=== PATIENT | female | born 1940 | race Caucasian/White ===

== ENCOUNTER → 2017-08-27 10:50 | Outpatient (CLI) | payer MEDICARE, MEDICAID, SELFPAY ==
--- NOTE | 2017-08-27 10:53 | MR_ITS ---
MR thoracic spine wo con HISTORY: Mid back pain. RT sided back pain between scapula and knot. Knot on back. ITS.REASON: THORACIC SPINE PAIN ORDERING PHYSICIAN: Megan Munguia PATIENT AGE: 76 years Comparison: MRI 08-02-15 TECHNIQUE: Standard multiplanar multiecho sequences are performed without contrast. 3-D MIP and myelographic images are also rendered and reviewed FINDINGS: There is normal alignment. No acute fracture or dislocation is evident. T6-T7: Small central disc herniation abutting the anterior aspect of the cord. This may be very slightly larger compared to the previous exam. No significant cord displacement. T7-T8 small central disc herniation slightly eccentric toward the right causing impingement and effacement upon the anterior right aspect of the cord not significantly changed. T8-T9: Small central disc herniation slightly eccentric to the right causing mild compression and effacement upon the anterior right aspect of the cord not significantly change. T 11 T12: Degenerative disc disease with small broad-based bulging disc slightly eccentric to the left without cord compression. T12-L1: Mild degenerative disc disease. Small broad based right paracentral and foraminal disc protrusion without impingement causing mild right foraminal narrowing L1-L2: Degenerative disc disease with mild concentric bulging disc and facet and ligamentum flavum hypertrophy. There is mild chronic wedging of L1 unchanged. There are multiple renal cyst. Subcutaneous lipoma noted in the lower thoracic/upper lumbar region as before. 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 IMPRESSION: Abnormal MRI of the thoracic spine. There are multiple disc protrusion/small herniation along with degenerative disc disease and bulging disc. Please see above for detailed description at each level. Overall there is been no significant change compared to the previous exam. The small disc herniation at T6-T7 may be very slightly larger however, this is minimal.
== END ==
PROVIDERS: Family Provider Internal Medicine Adolescent Medicine; PCP Internal Medicine Adolescent Medicine; Visit Provider Nurse Practitioner Family
DX: M54.6 Pain in thoracic spine (principal)
CPT/HCPCS: 72146

== ENCOUNTER → 2019-06-06 14:22 | Outpatient (CLI) | payer MEDICARE, MEDICAID, SELFPAY ==
[2019-06-06 14:51] LABS: Basophils % 0.2 % (0.1-2.0); Eosinophils # 0.1 K/mm3 (0.0-0.4); Eosinophils % 1.2 % (0.1-12.0); Hematocrit 29.1 % (37.0-47.0); Hemoglobin 9.5 g/dL (12.2-16.2); Lymphocytes # 1.4 K/mm3 (0.7-4.5); Lymphocytes % 21.2 % (10-50); Mean Corpuscular HGB Conc 32.6 g/dL (31.8-35.4); Mean Corpuscular Hemoglobin 37.8 pg (27.0-31.2); Mean Corpuscular Volume 115.9 fl (81-99); Mean Platelet Volume 8.3 fl (7.4-10.4); Monocytes # 0.3 K/mm3 (0.1-1.0); Monocytes % 3.9 % (1.7-9.3); Neutrophils # 4.7 K/mm3 (1.8-7.8); Neutrophils % 73.5 % (37.0-80.0); Platelet Count 345 K/mm3 (142-424); Red Blood Count 2.51 M/mm3 (4.20-5.40); Red Cell Distribution Width 14.3 % (11.5-17.5); White Blood Count 6.5 K/mm3 (4.8-10.8)
--- NOTE | 2019-06-06 15:04 | CA_ITS ---
APPROVED REPORT EXAM: Comprehensive 2D, Doppler, and color-flow Echocardiogram Employee Communications Coordinator: Beverly Ceballos RDCS Ht: 5 ft 1 in Wt: 113lbs BSA: 1.48 BP: 116/83 mmHg Indications: SOA,RBBB,ABN EKG,SMOKER,ESTRELLA,HTN,HLP 2D Dimensions LVOT 1.60 cm (M/F) 1.5-2.5 M-Mode Dimensions RVDd 2.69 cm (0.9-2.6) LVDd 4.51 cm (3.5-5.7) LVDs 2.79 cm (3.5-5.7) IVSd 0.61 cm (0.6-1.1) PWd 0.72 cm (0.6-1.1) EF (Teich) 68.50% FS 38.10% EDV (Teich) 92.90 mL ESV (Teich) 29.30 mL Mitral Valve MV PHT 73.00 ms Left Ventricle Left atrium is moderately enlarged, left ventricle is normal size, mild concentric left ventricular hypertrophy, visually estimated ejection fraction 55% with no regional wall motion abnormality, grade 1 diastolic dysfunction seen without tissue Doppler evidence of raise left atrial pressure. Right Ventricle Right atrium and right ventricular mildly enlarged with normal contractility. Aortic Valve Aortic valve is thickened and calcified leaflet continue to display good mobility, morphologically there is mild aortic stenosis, aortic outflow velocity is not accurately recorded. There is no aortic insufficiency. Mitral Valve Mitral valve leaflets are minimally thickened, there is mild mitral regurgitation. Tricuspid Valve Tricuspid valve is grossly normal, there is mild tricuspid regurgitation, calculated right ventricular systolic pressure is 47 mmHg which is moderately elevated. Inferior vena cava is dilated without significant inspiratory collapse. Pulmonic Valve Pulmonic valve is poorly visualized. Great Vessels Aortic root is normal size. Pericardium No significant pericardial effusion noted. Conclusion 1. Moderately enlarged left atrium, normal left ventricular size, mild concentric left ventricular hypertrophy, visually estimated ejection fraction 55% with no regional wall motion abnormality, grade 1 diastolic dysfunction seen without tissue Doppler evidence of raise left atrial pressure. 2. Mildly enlarged right ventricle with normal contractility. 3. Thickened and calcified aortic valve morphologically there is mild aortic stenosis, aortic outflow velocity is not accurately recorded, there is no aortic insufficiency. 4. Mild mitral and tricuspid regurgitation. Calculated right ventricular systolic pressure is 47 mmHg which is moderately elevated, inferior vena cava is dilated without significant inspiratory collapse. 5. No significant pericardial effusion noted. Electronically signed by : Brodie Harrell, 06/07/2019 08:09:47
[2019-06-06 15:10] LABS: Troponin I < 0.01 ng/ml (0.00-0.034)
[2019-06-06 15:40] LABS: Chloride 99 mmol/L (98-107); Potassium 4.3 mmoL/L (3.5-5.1); Sodium 129 mmol/L (136-145)
[2019-06-06 15:42] LABS: Bilirubin,Unconjugated 0.3 mg/dL (0.0-1.1); Blood Urea Nitrogen 14 mg/dl (7-17); Estimated Glomerular Filt Rate 54 ml/min (>60); GFR (African American) 65 ML/MIN (>60)
[2019-06-06 15:43] LABS: Alanine Aminotransferase 10 U/L (12-78); Albumin Level 3.9 g/dl (3.5-5.0); Alkaline Phosphatase 65 U/L (38-126); Anion Gap 10.3 mEq/L (5-15); Aspartate Amino Transferase 19 U/L (14-36); Bilirubin,Indirect 0.2 mg/dL (0.0-0.9); Bilirubin,Total 0.2 mg/dl (0.2-1.3); Calcium 8.6 mg/dl (8.4-10.2); Carbon Dioxide 24 mmol/L (22.0-30.0); Chol/HDL Ratio 2.7 (1-3.5); Cholesterol 167 mg/dl (140-200); Glucose 103 mg/dl (74-100); HDL Cholesterol 63 mg/dl (40-60); Total Protein,Serum 6.4 g/dl (6.3-8.2); Triglycerides 118 mg/dl (30-150); VLDL Cholesterol 24 mg/dL (0-40)
[2019-06-06 15:54] LABS: Direct LDL Cholesterol 91.98 mg/dL (100-129)
== END ==
LOC: LAB 14:23 → RT 15:03
PROVIDERS: PCP Internal Medicine Adolescent Medicine; Visit Provider Physician Assistant
DX: R07.89 Other chest pain (principal); F17.200 Nicotine dependence, unspecified, uncomplicated; I45.10 Unspecified right bundle-branch block; R06.09 Other forms of dyspnea; R94.31 Abnormal electrocardiogram [ECG] [EKG]
CPT/HCPCS: 36415; 80048; 80061; 80076; 84484; 85025; 93306

== ENCOUNTER → 2020-06-26 12:15 | Outpatient (CLI) | payer MEDICARE, MEDICAID, SELFPAY ==
[2020-06-26 12:57] LABS: Basophils % 0.4 % (0.1-2.0); Eosinophils # 0.1 K/mm3 (0.0-0.4); Eosinophils % 1.6 % (0.1-12.0); Hematocrit 30.2 % (37.0-47.0); Hemoglobin 9.8 g/dL (12.2-16.2); Lymphocytes # 1.6 K/mm3 (0.7-4.5); Lymphocytes % 24.6 % (10-50); Mean Corpuscular HGB Conc 32.6 g/dL (31.8-35.4); Mean Corpuscular Hemoglobin 37.3 pg (27.0-31.2); Mean Corpuscular Volume 114.3 fl (81-99); Monocytes # 0.4 K/mm3 (0.1-1.0); Monocytes % 5.8 % (1.7-9.3); Neutrophils # 4.3 K/mm3 (1.8-7.8); Neutrophils % 67.6 % (37.0-80.0); Platelet Count 290 K/mm3 (142-424); Red Blood Count 2.64 M/mm3 (4.20-5.40); Red Cell Distribution Width 14.3 % (11.5-17.5); White Blood Count 6.4 K/mm3 (4.8-10.8)
[2020-06-26 13:12] LABS: Alanine Aminotransferase 10 U/L (12-78); Albumin Level 4.5 g/dl (3.5-5.0); Albumin/Globulin Ratio 1.6 (1.1-1.8); Alkaline Phosphatase 86 U/L (38-126); Anion Gap 10.2 mEq/L (5-15); Aspartate Amino Transferase 23 U/L (14-36); Bilirubin,Total 0.3 mg/dl (0.2-1.3); Blood Urea Nitrogen 18 mg/dl (7-17); Calcium 9.4 mg/dl (8.4-10.2); Carbon Dioxide 22 mmol/L (22.0-30.0); Chloride 103 mmol/L (98-107); Chol/HDL Ratio 3.2 (1-3.5); Cholesterol 208 mg/dl (140-200); Estimated Glomerular Filt Rate 48 ml/min (>60); GFR (African American) 58 ML/MIN (>60); Globulin 2.9 g/dL (1.3-3.2); Glucose 65 mg/dl (74-100); HDL Cholesterol 65 mg/dl (40-60); Potassium 4.2 mmoL/L (3.5-5.1); Sodium 131 mmol/L (136-145); Total Protein,Serum 7.4 g/dl (6.3-8.2); Triglycerides 89 mg/dl (30-150); VLDL Cholesterol 18 mg/dL (0-40)
[2020-06-26 13:44] LABS: Thyroid Stimulating Hormone 0.58 uIU/mL (0.465-4.68)
[2020-06-26 14:02] LABS: Vitamin B12 993 pg/mL (239-931)
[2020-06-26 14:20] LABS: 25-OH Vitamin D, Total 40.9 ng/mL (30-100)
== END ==
PROVIDERS: Visit Provider Internal Medicine Adolescent Medicine
DX: E03.9 Hypothyroidism, unspecified (principal); J43.1 Panlobular emphysema; D51.9 Vitamin B12 deficiency anemia, unspecified; E55.9 Vitamin D deficiency, unspecified
CPT/HCPCS: 36415; 80053; 80061; 82306; 82607; 84443; 85025

== ENCOUNTER → 2021-09-30 12:37 | Outpatient (CLI) | payer MEDICARE, MEDICAID, SELFPAY ==
--- NOTE | 2021-09-30 12:43 | CA_ITS ---
FINAL REPORT TECHNIQUE: Color Doppler, duplex Doppler and liu scale sonography of the bilateral neck arterial vasculature was performed. Velocities were measured in the carotid arteries. Stenosis evaluation based on the validated velocity criteria. CLINICAL HISTORY: left carotid bruit,HTN FINDINGS: The peak systolic velocity of the right common carotid artery is 139 cm/s. The peak systolic velocity of the right internal carotid artery is 167 cm/s and end diastolic velocity 20 cm/s. The ICA/CCA ratio is 1.5. A mild amount of plaque is present. The right external carotid artery is patent. The right vertebral artery is patent with antegrade flow. The peak systolic velocity of the left common carotid artery is 131 cm/s. The peak systolic velocity of the left internal carotid artery is 126 cm/s and end diastolic velocity 17 cm/s. The ICA/CCA ratio is 0.96. A mild amount of plaque is present. The left external carotid artery is patent.The left vertebral artery is patent with antegrade flow. IMPRESSION: Less than 50% bilateral carotid stenosis. Bilateral patent vertebral arteries with antegrade flow. Reviewed, Interpreted and Dictated by Job Gomez III, MD Transcribed by Sera Sarkar Authenticated and [facility]
--- NOTE | 2021-09-30 12:43 | CA_ITS ---
APPROVED REPORT EXAM: Comprehensive 2D, Doppler, and color-flow Echocardiogram [employer] Supervisor: Oksana Oseguera RVT Ht: 5 ft 2 in Wt: 114lbs BSA: 1.51 BP: 180/60 mmHg Indications: MURMUR,SOA,HTN 2D Dimensions LVOT 1.98 cm (M/F) 1.5-2.5 LA Volume 47.60 mL LA Volume Index 31.73 mL/m2 (M/F) 16-34 M-Mode Dimensions RVDd 2.81 cm (0.9-2.6) LA Diam 4.36 cm (1.9-4.0) LVDd 3.98 cm (3.5-5.7) Ao Diam 2.71 cm (2.0-3.7) LVDs 1.90 cm (3.5-5.7) IVSd 0.66 cm (0.6-1.1) PWd 0.99 cm (0.6-1.1) EF (Teich) 83.80% FS 52.30% EDV (Teich) 69.20 mL TAPSE 2.44 (<1.7) ESV (Teich) 11.20 mL LV Diastology E Decel Time 197.00 (160-240 msec) E/A Ratio 0.7 MED E' 7.70 (< 7 cm/sec) E'/MED E' Ratio 12.90 (>14) LAT E' 8.00 (<10 cm/sec) E/LAT E' Ratio 12.41 (>14) Aortic Valve LVOT Max 171.00 (70-110 cm/s) LVOT VTI 32.62 cm AoV Peak Dewayne. 270.00 (50-130 cm/s) AO Peak GR. 29.20 mmHg AO Mean GR. 15.90 (<5 mmHg) AO VTI 50.02 (18-25 cm) EDILSON (VTI) 2.01 (2.5-4.5 cm2) Mitral Valve MV E Max Dewayne. 99.00 (40-130 cm/s) MV A Velocity 152.00 (40-130 cm/s) E/A Ratio 0.65 MV Decel. Time 197.00 (160-240 ms) MV PHT 58.00 ms Pulmonary Valve PV Peak Velocity 144.00 (50-150 cm/s) Tricuspid Valve TR P. Velocity 295.00 cm/s RAP Estimate 10.00 mmHg RVSP 44.80 mmHg Left Ventricle Left atrium is mildly enlarged, left ventricle is normal size, mild concentric left ventricular hypertrophy, estimated ejection fraction 55% with no regional wall motion abnormality, grade 1 diastolic dysfunction seen without tissue Doppler evidence of reduced left atrial pressure. Right Ventricle Right atrium and right ventricle are normal size and contractility. Aortic Valve Aortic valve is thickened and calcified with mean gradient across aortic valve of 18 mmHg represents mild aortic stenosis, there is no aortic insufficiency. Mitral Valve Mitral valve leaflets are minimally thickened, there is mild mitral regurgitation. Tricuspid Valve Tricuspid valve grossly normal, there is mild tricuspid regurgitation calculated right ventricular systolic pressure is 42 mmHg. Pulmonic Valve Pulmonic valve is poorly visualized. Great Vessels Aortic root is normal size. Inferior vena cava is normal size with normal inspiratory collapse. Pericardium Small pericardial effusion noted. Conclusion 1. Mildly enlarged left atrium, normal left ventricular size, mild concentric left ventricular hypertrophy, estimated ejection fraction 55% with no regional wall motion abnormality, grade 1 diastolic dysfunction seen without tissue Doppler evidence of raise left atrial pressure. 2. Thickened and calcified aortic valve with mild aortic stenosis. 3. Mild mitral and tricuspid regurgitation, calculated right ventricular systolic pressure is 42 mmHg. 4. No significant pericardial effusion noted. 5. Inferior vena cava normal size with normal inspiratory collapse. Electronically signed by : Brodie Harrell MD 09/30/2021 21:03:33
--- NOTE | 2021-09-30 13:48 | XR_ITS ---
FINAL REPORT CLINICAL HISTORY: shortness of breath COMPARISON: 07/26/2016 FINDINGS: TWO-VIEW CHEST Two views of the chest were obtained. The heart size and pulmonary vascularity are within normal limits. The mediastinum is normal. There is mild bibasilar atelectasis or scarring. There is no pneumothorax. The bony thorax is intact. IMPRESSION: Mild bibasilar atelectasis or scarring. Reviewed, Interpreted and Dictated by Job Gomez III, MD Transcribed by Sera Sarkar Authenticated and [facility]
== END ==
PROVIDERS: PCP Family Medicine; Visit Provider Family Medicine
DX: R06.02 Shortness of breath (principal); R09.89 Other specified symptoms and signs involving the circulatory and respiratory systems
CPT/HCPCS: 71046; 93306; 93880

== ENCOUNTER 2021-10-06 14:53 | Emergency (ER) | payer MEDICARE, MEDICAID, SELFPAY ==
[2021-10-06 14:54] VITALS: BP 195/68; PULSE 114; RESP 18; TEMP 37.6; O2SAT 98; BMI 20.8
--- NOTE | 2021-10-06 15:05 | PC.NURSE ---
went into triage pt and daughter was asking for pt some water, explained to daughter and pt that we needed to assess the reason she is being seen for so we cant give any water at this time. Daughter goes over to the trash can gets her water bottle out, rinses it off and puts water from the sink in it and goes to hand it to the pt, explained again we might need to do test that would require her not to be able to drink. Daughter continues to give the pt water and pt takes the water and drinks.
--- NOTE | 2021-10-06 15:57 | HMH.EDGENADL ---
ED Disposition Clinical Impression: Arthritis Disposition: Home, Self-Care Condition on Discharge: Good Instructions: DI for Chronic Pain -- Adult Prescriptions: Cyclobenzaprine HCl [Flexeril 10mg tablet] 10 mg PO Q8 PRN 30 Days #30 tab PRN Reason: Muscle Spasm Transmission Status: Received by [id number] Meloxicam 7.5 mg PO DAILY PRN #30 tab PRN Reason: Muscle Pain Transmission Status: Received by [id number] Referrals: Tortsen Adams MD [Primary Care Provider] - - Critical Care Critical Care Time: No Attestation: On 10/06/21, the high probability of a clinically significant, sudden or life threatening deterioration of the following system(s) required my full and direct attention, intervention and personal management. The time I documented below is in addition to time spent performing reported procedures but includes the following listed in this critical care notation. Medical Decision Making - Lefty Inquiry Pt receiving controlled substance: No Lefty was queried for this patient: No Vital Signs: 10/06/21 14:54 10/06/21 16:20 10/06/21 18:09 Temperature 99.6 F 99.6 F Temperature Source Oral Pulse Rate 108 H Pulse Rate [Left Radial] 114 H Respiratory Rate 18 18 Blood Pressure 173/65 H 165/62 H Blood Pressure [Right Arm] 195/68 H Blood Pressure Mean [Right Arm] 110 Blood Pressure Source [Right Arm] Automatic Cuff Blood Pressure Position [Right Arm] Sitting 02 Sat by Pulse Oximetry 98 97 Oxygen Delivery Method Room Air Room Air - Lab Data Lab Results 10/06/21 15:00: SARS-CoV-2 (PCR) Not detected, Influenza A Untype (PCR) Not detected, Influenza Type B (PCR) Not detected Orders (Tests/Meds): ED MEDICATIONS Discontinued Medications Generic Name Dose Route Start Last Admin Trade Name Freq PRN Reason Stop Dose Admin Albuterol/Ipratropium 3 ml 10/06/21 17:11 10/06/21 17:15 Ipratropium/Albuterol 3 Ml Neb IH 10/06/21 17:12 3 ml ONCE ONE Administration Cyclobenzaprine HCl 5 mg 10/06/21 16:29 10/06/21 16:35 Cyclobenzaprine 10mg Tablet PO 10/06/21 16:30 5 mg ONCE ONE Administration Oxycodone HCl 5 mg 10/06/21 16:30 Oxycodone 5mg Immediate Release Tablet PO 11/05/21 16:29 ONCE FERNANDO Medical Decision Narrative: In review this is a 81-year-old female who presents with multiple complaints. Hemodynamically stable and nontoxic-appearing. Her symptoms are likely a constellation of things that have been developing over a number of years. She is not nearly as mobile as she used to be and does complain of a lot of arthritic pain. We will give her a dose of oxycodone here as well as a dose of Flexeril to see if this helps with her symptoms. I talked with her at length about following up with her PCP to ensure that she gets some at least home physical therapy as she is likely getting keep getting worse if she continues to be more immobile. She voiced understanding of this. I wrote her prescription for meloxicam as well and she will follow-up with her PCP. No other acute abnormalities warrant work-up at this time. Stable for discharge. Return precautions given. General Adult HPI - General Chief complaint: PAIN Stated complaint: back pain,chilling,SOA Time Seen by Provider: 10/06/21 15:30 Mode of Arrival: Ambulatory Limitations: No Limitations Description of Symptoms (Recalled from ER Triage Doc. by RN): c/o body aches, chills and soa. States that her back and legs hurt and they always do but they are hurting to where she cant walk really well. - History of Present Illness HPI narrative: Patient is a 81-year-old female who presents with multiple complaints. She says that she has had pain in her hips, back, knees for greater than 2 years but it is gotten to the point that she is not able to ambulate as well every day. She says that some days she can do all of her activities but there are other days where she is un
--- NOTE | 2021-10-06 16:17 | PC.NURSE ---
rounded on patient,patient asked for a warm blanket, and a pillow, needs were met and nothing else needed at this time
[2021-10-06 16:20] VITALS: BP 173/65; O2SAT 97
[2021-10-06 16:25] LABS: Coronavirus 19, PCR Not Detected (NotDetected); Influenza A, PCR Not Detected (NotDetected); Influenza B, PCR Not Detected (NotDetected)
--- NOTE | 2021-10-06 16:29 | PC.NURSE ---
ED MD AT BEDSIDE FOR EVALUATION
--- NOTE | 2021-10-06 17:00 | PC.NURSE ---
updated pt and family that was with a critical pt and would be in with them as soon as he was available to update. Pt asked about her breathing tx that MD said she could have. Spoke with MD and medicine was ordered as mar.
--- NOTE | 2021-10-06 17:42 | PC.NURSE ---
helped pt scoot up in bed. Pt requesting to know when she can go home. Stated I will notify ER ER notified, no new orders obtained at this time.
[2021-10-06 18:09] VITALS: BP 165/62; PULSE 108; RESP 18; TEMP 37.6; O2SAT 97
== END 2021-10-06 18:16 | disposition home or self-care (01) ==
PROVIDERS: Emergency Provider Student in an Organized Health Care Education/Training Program; PCP Family Medicine
DX: M19.90 Unspecified osteoarthritis, unspecified site (principal); Z79.82 Long term (current) use of aspirin; Z79.899 Other long term (current) drug therapy; Z88.1 Allergy status to other antibiotic agents; Z88.8 Allergy status to other drugs, medicaments and biological substances; J44.9 Chronic obstructive pulmonary disease, unspecified; K21.9 Gastro-esophageal reflux disease without esophagitis; I10 Essential (primary) hypertension; Z72.0 Tobacco use; Z80.9 Family history of malignant neoplasm, unspecified; Z82.49 Family history of ischemic heart disease and other diseases of the circulatory system; Z82.3 Family history of stroke
CPT/HCPCS: 94640; 99283; C9803; U0003; U0005

== ENCOUNTER → 2021-10-07 17:50 | Outpatient (CLI) | payer MEDICARE, MEDICAID, SELFPAY ==
[2021-10-07 19:45] LABS: Free T4 (Free Thyroxine) 2.38 ng/dl (0.78-2.19)
[2021-10-07 20:00] LABS: Thyroid Stimulating Hormone 1.02 uIU/mL (0.465-4.68)
[2021-10-07 20:33] LABS: Basophils % 0.1 % (0.1-2.0); Lymphocytes # 0.6 K/mm3 (0.7-4.5); Lymphocytes % 2.4 % (10-50); Mean Corpuscular HGB Conc 33.2 g/dL (31.8-35.4); Mean Corpuscular Hemoglobin 34.5 pg (27.0-31.2); Mean Corpuscular Volume 103.9 fl (81-99); Monocytes # 0.8 K/mm3 (0.1-1.0); Monocytes % 3.4 % (1.7-9.3); Neutrophils # 21.2 K/mm3 (1.8-7.8); Platelet Count 246 K/mm3 (142-424); Red Blood Count 1.68 M/mm3 (4.20-5.40); Red Cell Distribution Width 17.4 % (11.5-17.5); White Blood Count 22.5 K/mm3 (4.8-10.8)
[2021-10-07 20:41] LABS: Alanine Aminotransferase 18 U/L (12-78); Albumin Level 3.4 g/dl (3.5-5.0); Albumin/Globulin Ratio 1.3 (1.1-1.8); Alkaline Phosphatase 141 U/L (38-126); Aspartate Amino Transferase 32 U/L (14-36); Bilirubin,Total 0.4 mg/dl (0.2-1.3); Blood Urea Nitrogen 13 mg/dl (7-17); Calcium 8.3 mg/dl (8.4-10.2); Carbon Dioxide 18 mmol/L (22.0-30.0); Chloride 84 mmol/L (98-107); Estimated Glomerular Filt Rate 53 ml/min (>60); GFR (African American) 64 ML/MIN (>60); Globulin 2.7 g/dL (1.3-3.2); Glucose 127 mg/dl (74-100); Potassium 3.7 mmoL/L (3.5-5.1); Total Protein,Serum 6.1 g/dl (6.3-8.2)
[2021-10-07 21:08] LABS: Anion Gap 13.7 mEq/L (5-15)
[2021-10-07 21:23] LABS: Hematocrit 17.4 % (37.0-47.0)
[2021-10-07 21:25] LABS: MANUAL DIFFERENTIAL MANUAL DIFFERENTIAL (MANUAL DIFF)
[2021-10-07 21:25] LABS: Sodium 112 mmol/L (136-145)
[2021-10-07 21:27] LABS: Hemoglobin 5.8 g/dL (12.2-16.2)
--- NOTE | 2021-10-07 21:34 | PC.NURSE ---
ABNORMAL LABS CALLED TO DR. CORONADO. REQUESTED TO CALL PATIENT AND HAVE HER TO RETURN TO ER. SPOKE WITH PATIENT STATED THAT SHE WAS AT NOW RECEIVING A BLOOD TRANSFUSION.
[2021-10-07 22:24] LABS: Anisocytosis 2+; Lymphocytes % 2 % (10-50); Macrocytosis 1+; Monocytes % 7 % (2-9); Neutrophils % 91 % (42-76); Nucleated Red Blood Cells 1; Platelet Estimate Normal; Total Cells Counted 100
== END ==
PROVIDERS: PCP Family Medicine; Visit Provider Family Medicine
DX: I10 Essential (primary) hypertension (principal); E03.9 Hypothyroidism, unspecified
CPT/HCPCS: 80053; 84439; 84443; 85007; 85025

== ENCOUNTER 2023-03-29 03:23 | Inpatient (IN) | payer MEDICARE, SELFPAY ==
[2023-03-29] VITALS (24 sets, daily range): BP systolic 113–154; BP diastolic 56–83; PULSE 88–110; RESP 14–20; TEMP 36.4–37.9; O2SAT 89–99; BMI 20.2; BMI 21.6
--- NOTE | 2023-03-29 | CA_ITS ---
APPROVED REPORT EXAM: Limited 2D Echocardiogram Rn New Graduate: Ethel Talley CRT Ht: 5 ft 1 in Wt: 117lbs BSA: 1.50 BP: 129/81 mmHg Indications: Pericardiocentesis CA mets lung Other Information Study Quality: Adequate Conclusion This is a limited TTE to evaluate for pericardial effusion intra procedurally at the time of pericardiocentesis. Limited windows were obtained. There is a large sized, circumferential pericardial effusion present. The largest pocket measures approximately 2.2 cm in diastole. The effusion appears heterogeneous and multiloculated in nature. Notably, the right atrium and the right ventricle are almost entirely collapsed with minimal visualization of the chamber cavities. Compared to prior study from the same day (03/30/2023), the pericardial effusion appears larger and the chamber collapse is now worse, likely reflecting progression of tamponade. Electronically signed by : Isis Zhang MD 03/30/2023 04:31:14
--- NOTE | 2023-03-29 03:25 | CT_ITS ---
PROCEDURE INFORMATION: Exam: CTA Chest With Contrast Exam date and time: 03/29/2023 4:27 AM Age: 82 years old Clinical indication: Shortness of breath; Additional info: SOA, h/o lung cancer TECHNIQUE: Imaging protocol: Computed tomographic angiography of the chest with contrast. Exam focused on the arteries. 3D rendering (Not supervised by radiologist): MIP and/or 3D reconstructed images were created by the technologist. Radiation optimization: All CT scans at this facility use at least one of these dose optimization techniques: automated exposure control; mA and/or kV adjustment per patient size (includes targeted exams where dose is matched to clinical indication); or iterative reconstruction. Contrast material: ISOVUE 370; Contrast volume: 70 ml; Contrast route: INTRAVENOUS (IV); COMPARISON: 1. CR XR CHEST 2V 09/30/2021 1:51 PM 2. MR thoracic spine wo con 08/27/2017 11:03 AM FINDINGS: Pulmonary arteries: No pulmonary emboli identified. Aorta: No thoracic aortic aneurysm or dissection. Lungs: Consolidation/atelectasis in the lingula, with mild interstitial prominence and hazy opacity in the remainder of the left upper lobe. [id number] atelectasis in right middle lobe. Pleural spaces: Large left and moderate right pleural effusions. Small anterior left pneumothorax. Heart: No cardiomegaly. Moderate pericardial effusion. Coronary arteries: Severe coronary artery calcifications. Lymph nodes: No adenopathy. Kidneys and ureters: Innumerable renal cysts, incompletely imaged. A couple of the lesions are intermediate in density. Bones/joints: No acute osseous abnormality or evidence of osseous metastatic disease. Soft tissues: Unremarkable. IMPRESSION: 1. No pulmonary emboli identified. 2. Large left and moderate right pleural effusions. 3. Consolidation/atelectasis in the lingula, with mild interstitial prominence and hazy opacity in the remainder of the left upper lobe. The consolidation seen inferiorly could represent the patient's reported lung cancer, though can not exclude atelectasis or pneumonia. Comparison with recent imaging recommended. 4. Small anterior left pneumothorax. Given the appearance of the lingula, can not exclude an ex vacuo pneumothorax. Comparison with recent imaging of the chest recommended. 5. [id number] atelectasis in right middle lobe. 6. Moderate pericardial effusion. 7. Innumerable renal cysts, incompletely imaged, with a couple of the lesions intermediate in density. Could represent hemorrhagic and/or proteinaceous cysts, but recommend comparison with any prior imaging of the kidneys. COMMENTS: Consistent with the [employer]'s Incidental Findings Committee white paper (J Am Mallory Radiol 2018): Any incidental renal lesion less than 1 cm or classified as too small to characterize, or any incidental cystic renal lesion characterized as simple-appearing, is likely benign. No follow-up imaging is recommended for these lesions per consensus recommendations based on imaging criteria.
--- NOTE | 2023-03-29 03:28 | [facility].EDCP ---
Discharge Plan Disposition Patient Disposition: Admitted Condition: Good Prescriptions Prescriptions: No Action carvedilol 3.125 mg tablet 3.125 mg PO BID Patient Comments: TAKE 1 TABLET BY MOUTH TWICE DAILY amlodipine 5 mg tablet 5 mg PO DAILY Patient Comments: TAKE 1 TABLET BY MOUTH ONCE DAILY aspirin 325 mg tablet 325 mg PO DAILY omeprazole 40 mg capsule,delayed release(DR/EC) 40 mg PO DAILY hydroxyurea 500 mg capsule 500 mg PO DAILY Rx Instructions: 1 tab daily Wednesday thru Wednesday albuterol sulfate [Ventolin HFA] 90 mcg/actuation HFA aerosol inhaler 1 inh INHALATION QID PRN (Reason: shortness of breath or wheezing) Qty: 8.5 2RF tramadol 50 mg tablet 50 mg PO Q6H PRN (Reason: pain) Qty: 20 0RF losartan 50 mg tablet 50 mg PO BID levothyroxine 50 mcg capsule 50 mcg PO DAILY cyclobenzaprine 10 MG tablet 10 mg PO Q8 PRN (Reason: Muscle Spasm) 30 Days Qty: 30 0RF meloxicam 7.5 MG tablet 7.5 mg PO DAILY PRN (Reason: Muscle Pain) Qty: 30 0RF Referrals Follow up/Referrals: Provider,Referral, MD [Primary Care Provider] - See instructions Clinical Impressions Clinical Impression: Chronic bilateral pleural effusions, Pericardial effusion, Metastatic adenocarcinoma, Shortness of breath Discharge ED Provider: Ernestina Ocampo HPI General Chief Complaint: Shortness of Breath/Dyspnea Stated Complaint: SOA Time Seen by Provider: 03/29/23 03:25 History of Present Illness HPI narrative: This patient is an 82-year-old female with a history of COPD, right bundle branch block, hypertension, hypothyroidism, and arthritis presenting to the emergency department for evaluation with concern for 1 week of shortness of breath. Patient reports that it got worse over the last 24 hours. She denies any fevers, chills, cough, chest pain, abdominal pain, nausea, vomiting, body aches, or other concerns. She states that it just feels like it is getting harder to breathe. Of note, she was diagnosed with lung cancer approximately a year ago. She notes that she initially declined treatment, however now she would like to pursue treatment but has not yet had an appointment with oncology. She believes that she has an appointment tomorrow. Of note, she states that she ran out of her inhalers at home approximate 1 week ago, which seems to be consistent with onset of symptoms. She states she is supposed to be on Ventolin. No other concerns noted at this time. EMS brought in the patient who reports that initially they were called to the home for shortness of breath, however her vitals were normal. They gave her a DuoNeb with some improvement in her symptoms, and initially she signed a refusal. They called EMS back to the home for continued shortness of breath, at which point they brought in the patient for evaluation. Her son was there at the time. Related Data Home Medications Medication Instructions Recorded Confirmed amlodipine 5 mg tablet 5 mg PO DAILY 06/06/19 10/07/21 aspirin 325 mg tablet 325 mg PO DAILY 06/06/19 10/07/21 carvedilol 3.125 mg tablet 3.125 mg PO BID 06/06/19 10/07/21 omeprazole 40 mg capsule,delayed 40 mg PO DAILY 06/06/19 10/07/21 release hydroxyurea 500 mg capsule 500 mg PO DAILY 09/02/21 10/07/21 levothyroxine 50 mcg capsule 50 mcg PO DAILY 09/02/21 10/07/21 losartan 50 mg tablet 50 mg PO BID 09/02/21 10/07/21 Previous Rx's Medication Instructions Recorded cyclobenzaprine 10 mg tablet 10 mg PO Q8 PRN Muscle Spasm 30 10/06/21 days #30 tabs meloxicam 7.5 mg tablet 7.5 mg PO DAILY PRN Muscle Pain 10/06/21 #30 tabs albuterol sulfate 90 mcg/actuation 1 inh inhalation QID PRN shortness 10/07/21 aerosol inhaler (Ventolin HFA) of breath or wheezing #8.5 grams tramadol 50 mg tablet 50 mg PO Q6H PRN pain #20 tabs 10/07/21 Allergies Allergy/AdvReac Type Severity Reaction Status Date / Time amoxicillin Allergy Intermediate I-RASH Verified 10/07/21 13:21 diphenhydramine Allergy Mild LEG PAIN Verified 10/07/21 13:21 [facility] Disclaimer: The information contained in this section may have been updated after the patient was seen, as this information can be updated by other users. Medical History Abnormal EKG Chest pain Dyspnea Right bundle branch block Tobacco dependence syndrome Social History Smoking Status: Former smoker alcohol intake: never current occupational status: employed and disabled Travel in the last 8 weeks: None household members: children housing: house ROS Obtained: Yes All systems reviewed & no additional complaints except as documented Physical Exam General General appearance: alert, in no apparent distress and anxious Head Head exam: atraumatic and normocephalic Eye Eye exam: Present normal appearance, PERRL and EOMI ENT ENT exam: Present normal exam, normal oropharynx, mucous membranes moist and normal external ear exam Neck Neck exam: Present normal inspection, full ROM and trachea midline; Absent tenderness Chest Chest inspection: Present normal inspection and symmetric chest wall rise; Absent tenderness Respiratory Respiratory exam: Present normal lung sounds bilaterally, accessory muscle use, prolonged expiratory phase and other (Mild accessory muscle use and tachypnea. Normal oxygen saturation on room air.); Absent respiratory distress, wheezes or stridor Cardiovascular Cardiovascular exam: Present normal rhythm and tachycardia Abdominal Exam Abdominal exam: Present soft; Absent distention, tenderness or guarding Extremities Exam Extremities exam: Present normal inspection, full ROM and normal capillary refill; Absent tenderness or edema Back Exam Back exam: Present normal inspection and full ROM; Absent tenderness Neurological Exam Neurological exam: Present alert, oriented X3, CN II-XII intact and normal gait; Absent motor sensory deficit Psychiatric Psychiatric exam: Present anxious Skin Skin exam: Present warm and dry HEART Score HEART Score HEART Score assessment performed?: Yes History (anamnesis): Slightly suspicious ECG: Non-specific disturbance Age: >65 years Risk factors: 1-2 risk factors Troponin: </= normal limit HEART Score: 4 Procedures Limited Ultrasound Findings:: Limited cardiac ultrasound Indication: Shortness of breath Identified cardiac views: [-Cardiac parasternal long axis] [-Cardiac parasternal short axis] [-Cardiac apical four-chamber] Findings: [-Cardiac activity present -Gross wall motion normal -Pericardial effusion present -Right heart strain absent] Impression: -Pericardial effusion without tamponade Images were saved to permanent archive The study was technically adequate CPT: 87094 This study was performed by me, and I personally interpreted all images/videos. Based on my clinical judgement, these images were [adequate] and [did not] necessitate further imaging. Critical Care Critical Care Time Critical Care Time: No Medical Decision Making Medical Records Medical records reviewed: Yes I reviewed the patient's medical records. [place] Inquiry Pt receiving controlled substance: No Vital Signs Vital Signs: 03/29/23 03:24 03/29/23 04:06 Temperature 97.9 F Temperature Source Oral Pulse Rate 101 H Pulse Rate [Right] 106 H Respiratory Rate 20 Blood Pressure [Right Arm] 129/81 Blood Pressure Mean [Right Arm] 97 Blood Pressure Source [Right Arm] Automatic Cuff Blood Pressure Position [Right Arm] Supine 02 Sat by Pulse Oximetry 95 Oxygen Delivery Method Room Air Lab Data Labs: Lab Results 03/29/23 03:25: VBG pH 7.41, VBG pCO2 34.9 L, VBG pO2 43.1 H, VBG HCO3 21.8 L, VBG Total CO2 22.9 L, VBG O2 Saturation 74.3 H, VBG Base Excess -2.7 L 03/29/23 03:35: WBC 7.5, RBC 2.71 L, Hgb 10.2 L, Hct 31.1 L, MCV 114.8 H, MCH 37.5 H, MCHC 32.7, RDW 17.3, Plt Count 478 H, MPV 9.0, Neut % (Auto) 86.5 H, Lymph % (Auto) 7.9 L, [place] % (Auto) 3.1, Eos % (Auto) 2.4, Baso % (Auto) 0.1, Neut # (Auto) 6.5, Lymph # (Auto) 0.6 L, [place] # (Auto) 0.2, Eos # (Auto) 0.2, Baso # (Auto) 0.0, Total Counted 100, Neutrophils % (Manual) 92 H, Lymphocytes % (Manual) 6 L, Monocytes % (Manual) 1 L, Eosinophils % (Manual) 1, Platelet Estimate Slight increase, Anisocytosis 1+, Macrocytosis 1+, Sodium 134 L, Potassium 3.7, Chloride 102, Carbon Dioxide 24, Anion Gap 11.7, BUN 17, Creatinine 1.00, Estimated Creat Clear 34, Estimated GFR 53 L, Est GFR ( Amer) 64, Glucose 138 H, Calcium 8.5, Total Bilirubin 0.5, AST 36, ALT 29, Alkaline Phosphatase 96, Troponin I < 0.01, NT-Pro-B Natriuret Pep 2150 H, Total Protein 7.3, Albumin 3.9, Globulin 3.4 H, Albumin/Globulin Ratio 1.1, TSH 1.31, Thyroxine (T4) 12.7 H 03/29/23 03:40: SARS-CoV-2 (PCR) Not detected, Influenza A Untype (PCR) Not detected, Influenza Type B (PCR) Not detected 03/29/23 04:05: Urine Color Yellow, Urine Appearance Clear, Urine pH 7.0, Ur Specific [place] 1.010, Urine Protein Trace, Urine Glucose (UA) Negative, Urine Ketones Negative, Urine Blood Negative, Urine Nitrate Negative, Urine Bilirubin Negative, Urine Urobilinogen 0.2, Ur Leukocyte Esterase Negative, Urine RBC None, Urine WBC 5-10, Ur Squamous Epith Cells 3-5, Urine Bacteria Trace 03/29/23 03:35 03/29/23 03:35 Response Orders (Tests/Meds): ED MEDICATIONS Generic Name Dose Route Start Last Admin Trade Name Freq PRN Reason Stop Dose Admin Iopamidol 70 ml 03/29/23 04:37 03/29/23 04:38 Iopamidol-370 (76%);100ml Bottle IV 03/29/23 04:38 70 ml ONCE ONE Administration Sodium Chloride 10 ml 03/29/23 04:20 Sodium Chloride 0.9% 10ml Vial IV 04/28/23 04:19 NEEDED PRN to Dilute Lorazepam inj Sodium Chloride 50 ml 03/29/23 04:37 03/29/23 04:38 0.9 % Sodium Chloride 50 Ml Vial IV 03/29/23 04:38 50 ml ONCE ONE Administration Sodium Chloride 10 ml 03/29/23 04:37 03/29/23 04:38 Sodium Chloride 0.9% 10ml Syr (Rad Only) IV 03/29/23 04:38 10 ml ONCE ONE Administration Discontinued Medications Generic Name Dose Route Start Last Admin Trade Name Freq PRN Reason Stop Dose Admin Albuterol/Ipratropium 6 ml 03/29/23 03:25 03/29/23 04:04 Ipratropium/Albuterol 3 Ml Neb IH 03/29/23 03:26 6 ml ONCE ONE Administration Lorazepam 1 mg 03/29/23 04:20 03/29/23 04:27 Lorazepam 2mg/Ml Vial IV 03/29/23 04:21 1 mg ONCE ONE Administration Methylprednisolone Sodium Succinate 125 mg 03/29/23 04:02 03/29/23 04:26 Methylprednisolone Sod Succ 125mg Vial IV 03/29/23 04:03 125 mg ONCE ONE Administration ORDERS Category Date Time Status CT angio chest PE protocol Stat Cat Scan 03/29/23 03:25 Taken POCUS Point of Care (ER Only) Stat Exams 03/29/23 04:27 Ordered Brain Natriuretic Peptide Stat Lab 03/29/23 03:35 Completed Complete Blood Count Auto Diff Stat Lab 03/29/23 03:35 Completed Comprehensive Metabolic Panel Stat Lab 03/29/23 03:35 Completed Rapid PCR Covid and Flu A/B Stat Lab 03/29/23 03:40 Completed T4 (Thyroxine) Stat Lab 03/29/23 03:35 Completed Thyroid Stimulating Hormone Stat Lab 03/29/23 03:35 Completed Troponin I Q3H Lab 03/29/23 06:30 Ordered Troponin I Q3H Lab 03/29/23 09:30 Ordered Troponin I Stat Lab 03/29/23 03:35 Completed Urinalysis and Microscopic Stat Lab 03/29/23 04:05 Completed Venous Blood Gas Stat RT 03/29/23 03:25 Completed ECG initial [place] Routine Y 03/29/23 03:30 Completed ECG Data Tracing #1: Attestation: I reviewed this ECG and interpreted as documented below: ECG Narrative: Sinus tachycardia with a ventricular rate of 100 bpm. Motion artifact noted given the patient's respiratory effort. No acute ST elevations concerning for STEMI. Incomplete right bundle branch block noted. ECG initial impression date: 03/29/23 ECG initial impression time: 03:34 MDM Narrative Medical Decision Narrative: In summary, this patient is a 82-year-old female presenting to the Emergency Department for evaluation of shortness of breath. Differential diagnoses considered include but are not limited to worsening of her lung cancer burden, PE, ACS, dysrhythmia, pneumonia, COPD exacerbation, respiratory failure. She did run out of her inhalers a week ago. Ruling out the most morbid conditions drove assessment. It should be noted patient's history includes COPD and lung cancer which are not at goal therapy. This complicates all aspects of care by increasing patient's risk for morbidity. On exam, the patient is mildly tachypneic with very mild accessory muscle use, however her oxygen saturation is 95% on room air. She is mildly tachycardic, but otherwise vitals are reassuring. She does appear very anxious. Lungs are clear to auscultation. Workup included CBC, CMP, troponin, TSH, T4, BNP, VBG, EKG, and CTA of the chest PE protocol. She was given 2 DuoNebs to assess for symptomatic improvement. Son arrives and notes the patient has fluid drained from her lungs on a regular basis and also goes to [place] for fluid around her heart. They cannot remember the last time she was seen, the last time she had fluid drained, or who her provider is. I did review her medical records from [facility] which noted the patient has a history of pericardial effusion with cardiac tamponade, requiring pericardiocentesis both in December and February. It appears she has a slowly accumulating pleural effusion that is malignant, and they have advised that she follow-up here with pulmonology for continued management of this. They note that no Pleurx catheter was placed, as the fluid is very slowly accumulating and they did not feel that this would be beneficial to the patient given her poor prognosis. I performed bedside cardiac ultrasound and noted pericardial effusion with no evidence of tamponade. Patient's labs do not demonstrate any acutely concerning abnormalities at this time. BNP is mildly elevated. No baseline BNP for assessment. Patient refused to lie for CT scan and was very anxious appearing. She was given 1 mg of Ativan for this, and she felt much better. This also improved her shortness of breath, so I feel anxiety could be playing a role here. I independently interpreted CT scan prior to the radiologist read and noted bilateral pleural effusions, significant metastatic burden, and pericardial effusion. Please see their read for final interpretation. Given the patient is symptomatic and mildly tachycardic in the setting of chronic pericardial and pleural effusions, I feel she would benefit from admission for evaluation by cardiology and pulmonology to come up with a definitive plan for management of her effusions. I do not feel that emergent drainage is indicated in the emergency department given she is hemodynamically stable, these effusions are chronic, and they have been slowly accumulating per her outside hospital records. I called and had an interactive discussion with the hospitalist who admitted the patient for further evaluation and management.
--- NOTE | 2023-03-29 03:30 | ECG_ITS ---
APPROVED REPORT Exam: Resting ECG HR:100 bpm ECG Measurements Heart Rate [address] 164 P 58 QRSd 107 QRS 44 QT 346 T 67 QTc 403 Conclusion SINUS TACHYCARDIA LEFT ATRIAL Abnormality LOW QRS VOLTAGE IN PRECORDIAL LEADS [QRS DEFLECTION < 1.0 mV IN CHEST LEADS] INCOMPLETE RIGHT BUNDLE BRANCH BLOCK [90+ ms QRS DURATION, TERMINAL R IN V1/V2, 40+ ms S IN I/aVL/V4/V5/V6] MODERATE ST DEPRESSION [0.05+ mV ST DEPRESSION] ABNORMAL ECG UNCONFIRMED REPORT Electronically signed by : Akin Luo MD 03/29/2023 20:19:36
[2023-03-29 03:42] LABS: Basophils % 0.1 % (0.1-2.0); Eosinophils # 0.2 K/mm3 (0.0-0.4); Eosinophils % 2.4 % (0.1-12.0); Hematocrit 31.1 % (37.0-47.0); Hemoglobin 10.2 g/dL (12.2-16.2); Lymphocytes # 0.6 K/mm3 (0.7-4.5); Lymphocytes % 7.9 % (10-50); Mean Corpuscular HGB Conc 32.7 g/dL (31.8-35.4); Mean Corpuscular Hemoglobin 37.5 pg (27.0-31.2); Mean Corpuscular Volume 114.8 fl (81-99); Monocytes # 0.2 K/mm3 (0.1-1.0); Monocytes % 3.1 % (1.7-9.3); Neutrophils # 6.5 K/mm3 (1.8-7.8); Neutrophils % 86.5 % (37.0-80.0); Platelet Count 478 K/mm3 (142-424); Red Blood Count 2.71 M/mm3 (4.20-5.40); Red Cell Distribution Width 17.3 % (11.5-17.5); White Blood Count 7.5 K/mm3 (4.8-10.8)
[2023-03-29 03:43] LABS: Coronavirus 19, PCR Not Detected (NotDetected); Influenza A, PCR Not Detected (NotDetected); Influenza B, PCR Not Detected (NotDetected)
[2023-03-29 03:47] LABS: Chloride 102 mmol/L (98-107); MANUAL DIFFERENTIAL MANUAL DIFFERENTIAL (MANUAL DIFF)
[2023-03-29 03:48] LABS: Potassium 3.7 mmoL/L (3.5-5.1); Sodium 134 mmol/L (136-145)
[2023-03-29 03:48] LABS: VBG Base Excess -2.7 mmol/L (-2.4-2.3); VBG HCO3 21.8 mmol/L (23-30); VBG Oxygen Saturation 74.3 % (50-70); VBG PCO2 34.9 mmol/L (35-51); VBG PH 7.41 mmol/L (7.31-7.41); VBG PO2 43.1 mmol/L (28-40); VBG Total CO2 22.9 mmol/L (23-27)
[2023-03-29 03:50] LABS: Alanine Aminotransferase 29 U/L (12-78); Aspartate Amino Transferase 36 U/L (14-36); Blood Urea Nitrogen 17 mg/dl (7-17); Creatinine Clearance Estimated 34 mL/min (50-200); Estimated Glomerular Filt Rate 53 ml/min (>60); GFR (African American) 64 ML/MIN (>60)
[2023-03-29 03:51] LABS: Albumin Level 3.9 g/dl (3.5-5.0); Albumin/Globulin Ratio 1.1 (1.1-1.8); Alkaline Phosphatase 96 U/L (38-126); Anion Gap 11.7 mEq/L (5-15); Bilirubin,Total 0.5 mg/dl (0.2-1.3); Calcium 8.5 mg/dl (8.4-10.2); Carbon Dioxide 24 mmol/L (22.0-30.0); Globulin 3.4 g/dL (1.3-3.2); Glucose 138 mg/dl (74-100); Total Protein,Serum 7.3 g/dl (6.3-8.2)
[2023-03-29 03:59] LABS: Eosinophils % 1 % (0-3); Lymphocytes % 6 % (10-50); Monocytes % 1 % (2-9); Neutrophils % 92 % (42-76); Total Cells Counted 100
[2023-03-29 04:00] LABS: Platelet Estimate Slight Increase
[2023-03-29 04:01] LABS: Anisocytosis 1+; Macrocytosis 1+; NT Pro Brain Natriuretic Pep. 2150 pg/mL (0-450)
[2023-03-29] MEDS: IPRATROPIUM/ALBUTEROL 3 ML NEB 6 ML IH (04:04)
[2023-03-29 04:05] LABS: Troponin I < 0.01 ng/ml (0.00-0.034)
[2023-03-29 04:09] LABS: T4 (Thyroxine) 12.7 ug/dl (5.53-11.0)
[2023-03-29 04:13] LABS: Microscopic, Urine URINE MICROSCOPIC (MICROSCOPIC)
[2023-03-29 04:14] LABS: Appearance,Urine CLEAR (Clear); Bilirubin,Urine Negative (Negative); Blood, Urine Negative (Negative); Color,Urine YELLOW (Yellow); Glucose,Urine (UA) Negative (Negative); Ketones,Urine Negative (Negative); Leukocyte Esterase,Urine Negative (Negative); Nitrate,Urine Negative (Negative); Protein,Urine TRACE (Negative); Urobilinogen,Urine 0.2 EU/dl (0.2)
[2023-03-29 04:21] LABS: Bacteria,Urine Trace /lpf
[2023-03-29 04:22] LABS: Thyroid Stimulating Hormone 1.31 uIU/mL (0.465-4.68)
[2023-03-29] MEDS: METHYLPREDNISOLONE SOD SUCC 125MG VIAL 125 MG IV (04:26)
[2023-03-29] MEDS: LORazepam 2MG/ML VIAL 1 MG IV (04:27)
[2023-03-29] MEDS: IOPAMIDOL-370 (76%);100ML BOTTLE 70 ML IV (04:38)
[2023-03-29] MEDS: SODIUM CHLORIDE 0.9% 10ML SYR (RAD ONLY) 10 ML IV (04:38)
[2023-03-29] MEDS: 0.9 % SODIUM CHLORIDE 50 ML VIAL IV (04:38)
--- NOTE | 2023-03-29 05:10 | EXP.HP ---
History of Present Illness *Admission Date: 03/29/23 *Reason for visit:: SOB *History of present illness: This is a 82-year-old female with a PMHx of COPD, right bundle branch block, hypertension, hypothyroidism, and arthritis brought in by EMS to the ED for evaluation of shortness of breath. Patient reported that it got worse over the last 24 hours. She denied any fevers, chills, cough, chest pain, abdominal pain, nausea, vomiting, body aches, or other concerns. She states that it just feels like it is getting harder to breathe. Apparently, she ran out of her inhalers at home approximate 1 week ago, which seems to be consistent with onset of symptoms. She states she is supposed to be on Ventolin. No other concerns noted at this time. Per ED documentation her vitals were normal after EMS gave her a DuoNeb with some improvement in her symptoms. Admitted for treatment and management. [facility] Disclaimer: The information contained in this section may have been updated after the patient was seen, as this information can be updated by other users. Medical History Abnormal EKG Chest pain Dyspnea Right bundle branch block Tobacco dependence syndrome Social History Smoking Status: Former smoker alcohol intake: never current occupational status: employed and disabled Travel in the last 8 weeks: None household members: children housing: house Review of Systems Review of Systems Review of systems:: pertinent systems reviewed and negative unless documented below Meds Home Medications and Allergies Home Medications Medication Instructions Recorded Confirmed Type amlodipine 5 mg tablet 5 mg PO DAILY 06/06/19 03/29/23 History hydroxyurea 500 mg capsule 500 mg PO MOTUWETHFR 09/02/21 03/29/23 History losartan 50 mg tablet 50 mg PO BID 09/02/21 03/29/23 History albuterol sulfate 90 mcg/actuation 1 inh inhalation QID PRN Shortness 03/29/23 03/29/23 History aerosol inhaler (Ventolin HFA) Of Breath Or Wheezing levothyroxine 75 mcg tablet 75 mcg PO AM 03/29/23 03/29/23 History New Prescriptions to Start Prescriptions: Allergies Allergy/AdvReac Type Severity Reaction Status Date / Time amoxicillin Allergy Intermediate I-RASH Verified 10/07/21 13:21 diphenhydramine Allergy Mild LEG PAIN Verified 10/07/21 13:21 Exam Data for Last 24 hours Vital signs and Labs for Last 24 Hours: Temp Pulse Resp BP Pulse Ox O2 Del Method 97.9 F 101 H 20 132/68 95 Room Air 03/29/23 04:55 03/29/23 04:55 03/29/23 04:55 03/29/23 04:55 03/29/23 03:24 03/29/23 04:55 Laboratory Results - last 24 hr 03/29/23 03:25: VBG pH 7.41, VBG pCO2 34.9 L, VBG pO2 43.1 H, VBG HCO3 21.8 L, VBG Total CO2 22.9 L, VBG O2 Saturation 74.3 H, VBG Base Excess -2.7 L 03/29/23 03:35: WBC 7.5, RBC 2.71 L, Hgb 10.2 L, Hct 31.1 L, MCV 114.8 H, MCH 37.5 H, MCHC 32.7, RDW 17.3, Plt Count 478 H, MPV 9.0, Neut % (Auto) 86.5 H, Lymph % (Auto) 7.9 L, [place] % (Auto) 3.1, Eos % (Auto) 2.4, Baso % (Auto) 0.1, Neut # (Auto) 6.5, Lymph # (Auto) 0.6 L, [place] # (Auto) 0.2, Eos # (Auto) 0.2, Baso # (Auto) 0.0, Total Counted 100, Neutrophils % (Manual) 92 H, Lymphocytes % (Manual) 6 L, Monocytes % (Manual) 1 L, Eosinophils % (Manual) 1, Platelet Estimate Slight increase, Anisocytosis 1+, Macrocytosis 1+, Sodium 134 L, Potassium 3.7, Chloride 102, Carbon Dioxide 24, Anion Gap 11.7, BUN 17, Creatinine 1.00, Estimated Creat Clear 34, Estimated GFR 53 L, Est GFR ( Amer) 64, Glucose 138 H, Calcium 8.5, Total Bilirubin 0.5, AST 36, ALT 29, Alkaline Phosphatase 96, Troponin I < 0.01, NT-Pro-B Natriuret Pep 2150 H, Total Protein 7.3, Albumin 3.9, Globulin 3.4 H, Albumin/Globulin Ratio 1.1, TSH 1.31, Thyroxine (T4) 12.7 H 03/29/23 03:40: SARS-CoV-2 (PCR) Not detected, Influenza A Untype (PCR) Not detected, Influenza Type B (PCR) Not detected 03/29/23 04:05: Urine Color Yellow, Urine Appearance Clear, Urine pH 7.0, Ur Specific [place] 1.010, Urine Protein Trace, Urine Glucose (UA) Negative, Urine Ketones Negative, Urine Blood Negative, Urine Nitrate Negative, Urine Bilirubin Negative, Urine Urobilinogen 0.2, Ur Leukocyte Esterase Negative, Urine RBC None, Urine WBC 5-10, Ur Squamous Epith Cells 3-5, Urine Bacteria Trace I & O for Last 24 hours: Intake & Output 03/26/23 03/27/23 03/28/23 03/29/23 23:59 23:59 23:59 23:59 Weight 50.349 kg Constitutional Constitutional: mild distress, cachectic, chronically ill appearing and cooperative *Routine HEENT Exam Head: Present normocephalic and atraumatic Eye: Present EOMI, PERRL and normal accommodation ENT: Present mucous membranes moist *Routine Neck Exam Neck: Present supple, full ROM and trachea midline *Routine Respiratory Exam Respiratory: Present rales, normal respiratory effort, able to speak in complete sentences and symmetric chest movement; Absent respiratory distress *Routine Cardiovascular Exam Cardiovascular: Present Normal S1, Normal S2 and tachycardia *Routine Abdominal Exam Abdominal: Present soft and normoactive bowel sounds; Absent organomegaly *Routine Rectal Exam Rectal:: deferred *Routine Genitalia Exam Genitalia:: deferred *Routine Extremities Exam Extremities: Present full ROM and pulses intact; Absent cyanosis, clubbing or edema *Routine Skin Exam Skin: Present intact, dry and warm *Routine Neurological Exam Neurological: Present alert, oriented X3, normal reflexes, moving all extremities and normal speech Routine Psychiatric Exam Psychiatric: Present normal thought process, cooperative and good judgment H&P: Result Imaging and Cardiology EKG: Status: image reviewed by me and Preliminary report CT scan - chest: Status: image reviewed by me, Preliminary report and final report Assessment and Plan *Assessment and plan (1) Shortness of breath: Status: Acute Category: Medical Code(s): R06.02 - Shortness of breath (2) Chronic bilateral pleural effusions: Status: Acute Category: Medical Code(s): J90 - Pleural effusion, not elsewhere classified (3) Pericardial effusion: Status: Acute Category: Medical Code(s): I31.39 - Other pericardial effusion (noninflammatory) (4) Metastatic adenocarcinoma: Status: Acute Category: Medical Code(s): C79.9 - Secondary malignant neoplasm of unspecified site (5) HTN (hypertension): Status: Acute Qualifiers: Hypertension type: unspecified Qualified Code(s): I10 - Essential (primary) hypertension Category: Medical Code(s): I10 - Essential (primary) hypertension (6) Tobacco dependence syndrome: Status: Acute Category: Medical Code(s): F17.200 - Nicotine dependence, unspecified, uncomplicated Plan 82-year-old female with a PMHx of COPD, right bundle branch block, hypertension, hypothyroidism, and arthritis brought in by EMS to the ED for evaluation of shortness of breath. Patient reported that it got worse over the last 24 hours. On arrival most of the patient symptoms has been improved. Underwent CTA of chest. Imaging reviewed. Confirmed a large bilateral pleural effusion and pericardial effusion, that was also assess on bedside US at ER. There is a low concern for acute process. NO PEs, no tamponade. patient hemodinamically stable. Due to high risk of decompensation, case was discussed with ED provider for admission. Plan as follow: -Worsened dyspnea associated with chronic bilateral pleural effusion: Admit patient for medical service. Dispo MedSurg Pulmonology consult Monitor for heart rate and rhythm. Monitor for O2 sats. Currently on room air DuoNebs as needed One-time 40 mg Lasix IV given -Pericardial effusion: No evidence of cardiac tamponade. Last echocardiogram from 2021 showed preserved ejection fraction Cardiology consult Monitor for vital signs chest pain. -History of metastatic lung cancer: Initially this did not want to pursue any treatment. Patient currently issues need to follow-up with oncology -Hypertension on losartan and amlodipine -History of tobacco On nicotine patch. Lovenox for DVT prophylaxis. On Protonix for GI bleed prophylaxis Patient is DNR Rounded on patient after nurse practitioner. Personally examined and interviewed patient. Agree with exam findings and care plan as documented. Significant pleural effusion noted. Further history with patient, effusion was drained just 2 weeks ago but has recurred. Highly suspicious for malignant effusion. Also noted to have pericardial effusion. Echo obtained today showing large effusion needing drainage. Cardiology was consulted to assist with care. Plan for IR consult tomorrow to drain left pleural effusion. Anticipate cytology to be obtained. Will plan to set patient up for outpatient referral to oncology at [facility] with Dr. Gray for further management and discussion about possible treatment options.
[2023-03-29] MEDS: FUROSEMIDE 40MG/4ML VIAL 40 MG IV (06:15)
[2023-03-29 07:20] LABS: Eosinophils # 0.1 K/mm3 (0.0-0.4); Eosinophils % 0.6 % (0.1-12.0); Hematocrit 29.2 % (37.0-47.0); Hemoglobin 9.4 g/dL (12.2-16.2); Lymphocytes # 0.4 K/mm3 (0.7-4.5); Lymphocytes % 4.4 % (10-50); Mean Corpuscular HGB Conc 32.3 g/dL (31.8-35.4); Mean Corpuscular Hemoglobin 37.8 pg (27.0-31.2); Mean Platelet Volume 9.7 fl (7.4-10.4); Monocytes # 0.2 K/mm3 (0.1-1.0); Monocytes % 1.8 % (1.7-9.3); Neutrophils # 7.5 K/mm3 (1.8-7.8); Neutrophils % 93.1 % (37.0-80.0); Platelet Count 469 K/mm3 (142-424); Red Blood Count 2.49 M/mm3 (4.20-5.40); Red Cell Distribution Width 17.2 % (11.5-17.5)
[2023-03-29 07:44] LABS: Alanine Aminotransferase 28 U/L (12-78); Albumin Level 3.5 g/dl (3.5-5.0); Albumin/Globulin Ratio 1.1 (1.1-1.8); Alkaline Phosphatase 85 U/L (38-126); Anion Gap 10.8 mEq/L (5-15); Aspartate Amino Transferase 33 U/L (14-36); Bilirubin,Total 0.4 mg/dl (0.2-1.3); Blood Urea Nitrogen 16 mg/dl (7-17); Calcium 7.8 mg/dl (8.4-10.2); Carbon Dioxide 23 mmol/L (22.0-30.0); Chloride 102 mmol/L (98-107); Creatinine Clearance Estimated 36 mL/min (50-200); Estimated Glomerular Filt Rate 53 ml/min (>60); GFR (African American) 64 ML/MIN (>60); Globulin 3.2 g/dL (1.3-3.2); Glucose 140 mg/dl (74-100); Magnesium 1.9 mg/dl (1.6-2.3); Potassium 3.8 mmoL/L (3.5-5.1); Sodium 132 mmol/L (136-145); Total Protein,Serum 6.7 g/dl (6.3-8.2)
--- NOTE | 2023-03-29 08:07 | CA_ITS ---
APPROVED REPORT EXAM: Comprehensive 2D, Doppler, and color-flow Echocardiogram Boiler Installer: Ethel Talley CRT Ht: 5 ft 1 in Wt: 117lbs BSA: 1.50 BP: 129/81 mmHg Indications: Mets Lung CA, DNR, chronic pleural and pericardial effusions, pericardiocentesis Dec and FEB, regular thoracentesis at , COPD, HTN, DNR, Smoker 2D Dimensions LA Volume 26.20 mL LA Volume Index 17.00 mL/m2 (M/F) 16-34 M-Mode Dimensions RVDd 2.46 cm (0.9-2.6) LA Diam 3.53 cm (1.9-4.0) LVDd 3.93 cm (3.5-5.7) LVDs 2.31 cm (3.5-5.7) IVSd 0.69 cm (0.6-1.1) PWd 1.01 cm (0.6-1.1) EF (Teich) 72.70% FS 41.20% EDV (Teich) 67.10 mL TAPSE 0.50 (<1.7) ESV (Teich) 18.30 mL LV Diastology E Decel Time 190 (160-240 msec) E/A Ratio 0.70 MED A' 13.40 cm/s LAT A' 14.80 cm/s Aortic Valve EDILSON Index 1.06 cm2/m2 AoV Peak Dewayne. 191.0 (50-130 cm/s) AO Peak GR. 14.60 mmHg AO Mean GR. 7.00 (<5 mmHg) AO VTI 31.5 (18-25 cm) EDILSON (VTI) 1.63 (2.5-4.5 cm2) Mitral Valve MV E Max Dewayne. 93.0 (40-130 cm/s) MV A Velocity 133.0 (40-130 cm/s) E/A Ratio 0.70 MV PHT 56.0 ms Pulmonary Valve PV Peak Velocity 169.0 (50-150 cm/s) Tricuspid Valve TR P. Velocity 237.00 cm/s RAP Estimate 10.00 mmHg RVSP 32.50 mmHg Left Ventricle The left ventricle is normal size. The left ventricular systolic function is hyperdynamic. There is normal LV wall thickness. There are no regional wall motion abnormalities. Diastolic function is indeterminate. LVEF is 70%. Right Ventricle The right ventricle chamber cavity is small and collapsible during diastole The right ventricular systolic function is normal. Atria The left atrium is mildly dilated. The right atrium chamber cavity is small and collapsible during systole. There is no Doppler evidence of interatrial shunt. Aortic Valve The aortic valve is mildly thickened. There is no aortic valvular stenosis. Trace aortic regurgitation. Mitral Valve The mitral valve leaflets are mildly thickened. No evidence of mitral valve stenosis. Trace mitral regurgitation. There is no significant transmitral respirophasic variation noted. Tricuspid Valve The tricuspid valve leaflets are thin and pliable. Trace tricuspid regurgitation. There is insufficient TR jet to estimate RVSP. There is no significant transtricuspid respirophasic variation noted Pulmonic Valve The pulmonary valve is normal in structure. Trace pulmonic regurgitation. Great Vessels The aortic root is normal in size. The ascending aorta is not well-visualized. The IVC is normal in size but does not collapse > 50% with respirophasic variation. Pericardium There is a large sized, circumferential pericardial effusion present. The largest pocket measures approximately 2.1 cm in diastole. Early echo tamponade physiology is likely present in the setting of RA and RV chamber collapse during systole and diastole, respectively, as well as IVC non-collapsibility. Large pleural effusion is present. Other Information Study Quality: Adequate Conclusion Hyperdynamic LV systolic function (LVEF 70%). Small RA and RV cavities and collapsible chambers during systole and diastole, respectively. Large sized, circumferential pericardial effusion present. The largest pocket measures approximately 2.1 cm in diastole. Large pleural effusion is present. Early echo tamponade physiology is likely present in the setting of RA and RV chamber collapse during systole and diastole, respectively, as well as IVC non-collapsibility. The above findings and concern for tamponade were relayed to the interventional cardiology team at 11:00 AM on the day of the exam at the time the study was initially interpreted. Electronically signed by : Isis Zhang MD 03/30/2023 04:26:48
--- NOTE | 2023-03-29 08:08 | HMH.PHAINT1 ---
Pharmacy Intervention Comments: Home med list verified with patient at bedside and with external pharmacy list.
[2023-03-29 08:29] LABS: Troponin I < 0.01 ng/ml (0.00-0.034)
[2023-03-29] MEDS: PANTOPRAZOLE 40MG TABLET 40 MG PO (09:08)
[2023-03-29] MEDS: ENOXAPARIN 40MG/0.4ML SYRINGE 40 MG SQ (09:08)
--- NOTE | 2023-03-29 09:13 | EXP.CARD.CON ---
History of Present Illness History of Present Illness Consult date: 03/29/23 Requesting physician: John Whittaker Consult reason: shortness of breath Chief complaint: soa History of present illness: 82-year-old white female with past medical history of COPD, right bundle branch block, hypertension, pericardial effusion with tamponade requiring pericardiocentesis in both December and February 2023, and a slow accumulating pleural effusion that is likely malignant presented to emergency department this morning with complaints of shortness of breath x 1 week that has became worse over the last 24 hours. Patient denies any history of fever, chills, chest pain, abdominal pain, nausea or vomiting. Reports intermittent left sided chest pain at rest and cough, denies any chest pain currently. Labs as follow: Hemoglobin 9.4, platelets 469, sodium 132, potassium 3.8, creatinine 1, troponin negative, proBNP 2150. A CTA of chest was performed which showed a large hazy opacity to left upper lobe which may represent pneumonia versus lung cancer, small anterior left pneumothorax cannot be excluded and a moderate pericardial effusion without evidence of tamponade. Patient was admitted for further evaluation of pericardial and pleural effusions. Echo is pending. Patient continues to deny chest pain, reports some mild shortness of breath and anxiety this morning. [facility] Disclaimer: The information contained in this section may have been updated after the patient was seen, as this information can be updated by other users. Medical History Abnormal EKG Chest pain Dyspnea Right bundle branch block Tobacco dependence syndrome Social History Smoking Status: Former smoker alcohol intake: never current occupational status: employed and disabled Travel in the last 8 weeks: None household members: children housing: house Review of Systems Review of Systems Review of systems:: pertinent systems reviewed and negative unless documented below *Cardiovascular Cardiovascular: Reports dyspnea *Respiratory Respiratory: Reports dyspnea Exam Data for Last 24 hours Vital signs and Labs for Last 24 Hours: Temp Pulse Resp BP Pulse Ox O2 Del Method 98.0 F 98 H 16 113/65 90 L Room Air 03/29/23 08:00 03/29/23 08:00 03/29/23 08:00 03/29/23 08:00 03/29/23 08:00 03/29/23 08:00 Laboratory Results - last 24 hr 03/29/23 03:25: VBG pH 7.41, VBG pCO2 34.9 L, VBG pO2 43.1 H, VBG HCO3 21.8 L, VBG Total CO2 22.9 L, VBG O2 Saturation 74.3 H, VBG Base Excess -2.7 L 03/29/23 03:35: WBC 7.5, RBC 2.71 L, Hgb 10.2 L, Hct 31.1 L, MCV 114.8 H, MCH 37.5 H, MCHC 32.7, RDW 17.3, Plt Count 478 H, MPV 9.0, Neut % (Auto) 86.5 H, Lymph % (Auto) 7.9 L, [place] % (Auto) 3.1, Eos % (Auto) 2.4, Baso % (Auto) 0.1, Neut # (Auto) 6.5, Lymph # (Auto) 0.6 L, [place] # (Auto) 0.2, Eos # (Auto) 0.2, Baso # (Auto) 0.0, Total Counted 100, Neutrophils % (Manual) 92 H, Lymphocytes % (Manual) 6 L, Monocytes % (Manual) 1 L, Eosinophils % (Manual) 1, Platelet Estimate Slight increase, Anisocytosis 1+, Macrocytosis 1+, Sodium 134 L, Potassium 3.7, Chloride 102, Carbon Dioxide 24, Anion Gap 11.7, BUN 17, Creatinine 1.00, Estimated Creat Clear 34, Estimated GFR 53 L, Est GFR ( Amer) 64, Glucose 138 H, Calcium 8.5, Total Bilirubin 0.5, AST 36, ALT 29, Alkaline Phosphatase 96, Troponin I < 0.01, NT-Pro-B Natriuret Pep 2150 H, Total Protein 7.3, Albumin 3.9, Globulin 3.4 H, Albumin/Globulin Ratio 1.1, TSH 1.31, Thyroxine (T4) 12.7 H 03/29/23 03:40: SARS-CoV-2 (PCR) Not detected, Influenza A Untype (PCR) Not detected, Influenza Type B (PCR) Not detected 03/29/23 04:05: Urine Color Yellow, Urine Appearance Clear, Urine pH 7.0, Ur Specific [place] 1.010, Urine Protein Trace, Urine Glucose (UA) Negative, Urine Ketones Negative, Urine Blood Negative, Urine Nitrate Negative, Urine Bilirubin Negative, Urine Urobilinogen 0.2, Ur Leukocyte Esterase Negative, Urine RBC None, Urine WBC 5-10, Ur Squamous Epith Cells 3-5, Urine Bacteria Trace 03/29/23 06:12: WBC 8.0, RBC 2.49 L, Hgb 9.4 L, Hct 29.2 L, MCV 117.0 H, MCH 37.8 H, MCHC 32.3, RDW 17.2, Plt Count 469 H, MPV 9.7, Neut % (Auto) 93.1 H, Lymph % (Auto) 4.4 L, [place] % (Auto) 1.8, Eos % (Auto) 0.6, Baso % (Auto) 0.0 L, Neut # (Auto) 7.5, Lymph # (Auto) 0.4 L, [place] # (Auto) 0.2, Eos # (Auto) 0.1, Baso # (Auto) 0.0, Sodium 132 L, Potassium 3.8, Chloride 102, Carbon Dioxide 23, Anion Gap 10.8, BUN 16, Creatinine 1.00, Estimated Creat Clear 36, Estimated GFR 53 L, Est GFR ( Amer) 64, Glucose 140 H, Calcium 7.8 L, Magnesium 1.9, Total Bilirubin 0.4, AST 33, ALT 28, Alkaline Phosphatase 85, Troponin I < 0.01, Total Protein 6.7, Albumin 3.5 D, Globulin 3.2, Albumin/Globulin Ratio 1.1 I & O for Last 24 hours: Intake & Output 03/26/23 03/27/23 03/28/23 03/29/23 23:59 23:59 23:59 23:59 Intake Total 270 / 270 Balance 270 / 270 Weight 117 lb 7 oz Constitutional Constitutional: no acute distress *Routine Respiratory Exam Respiratory: Present rhonchi and symmetric chest movement *Routine Cardiovascular Exam Cardiovascular: Present RRR, Normal S1 and Normal S2 *Routine Abdominal Exam Abdominal: Present soft and normoactive bowel sounds; Absent tenderness *Routine Extremities Exam Extremities: Present full ROM and normal capillary refill; Absent edema *Routine Skin Exam Skin: Present intact, dry and warm Detailed Neck Exam: Thyroids Thyroid: Absent bruit Meds Home Medications and Allergies Home Medications Medication Instructions Recorded Confirmed Type amlodipine 5 mg tablet 5 mg PO DAILY 06/06/19 03/29/23 History hydroxyurea 500 mg capsule 500 mg PO MOTUWETHFR 09/02/21 03/29/23 History losartan 50 mg tablet 50 mg PO BID 09/02/21 03/29/23 History albuterol sulfate 90 mcg/actuation 1 inh inhalation QID PRN Shortness 03/29/23 03/29/23 History aerosol inhaler (Ventolin HFA) Of Breath Or Wheezing levothyroxine 75 mcg tablet 75 mcg PO AM 03/29/23 03/29/23 History New Prescriptions to Start Prescriptions: Allergies Allergy/AdvReac Type Severity Reaction Status Date / Time amoxicillin Allergy Intermediate I-RASH Verified 10/07/21 13:21 diphenhydramine Allergy Mild LEG PAIN Verified 10/07/21 13:21 Assessment and Plan *Assessment and plan (1) Chronic bilateral pleural effusions: Status: Acute Category: Medical Code(s): J90 - Pleural effusion, not elsewhere classified (2) Pericardial effusion: Status: Acute Category: Medical Code(s): I31.39 - Other pericardial effusion (noninflammatory) (3) Metastatic adenocarcinoma: Status: Acute Category: Medical Code(s): C79.9 - Secondary malignant neoplasm of unspecified site (4) Shortness of breath: Status: Acute Category: Medical Code(s): R06.02 - Shortness of breath (5) HTN (hypertension): Status: Acute Qualifiers: Hypertension type: unspecified Qualified Code(s): I10 - Essential (primary) hypertension Category: Medical Code(s): I10 - Essential (primary) hypertension (6) Right bundle branch block: Status: Acute Category: Medical Code(s): I45.10 - Unspecified right bundle-branch block (7) Abnormal EKG: Status: Acute Category: Medical Code(s): R94.31 - Abnormal electrocardiogram [ECG] [EKG] (8) Tobacco dependence syndrome: Status: Acute Category: Medical Code(s): F17.200 - Nicotine dependence, unspecified, uncomplicated Plan Bilateral Pleural effusion Pericardial effusion History of metastatic lung cancer Worsening dyspnea -Patient will see Dr. Begum outpatient -CTA chest shows large left and moderate right pleural effusion and a moderate pericardial effusion -Preliminary echo report shows a large pericardial effusion with possible RA strain, normal LV function -Plan for IR to drain left pleural effusion tomorrow. Cardiology recommends that pericardial effusion be drained today due to size and RA strain, concern for progression to tamponade is high. Hypertension -Continue losartan and amlodipine Tobacco use -Smoking cessation advised CV summary 03/29/2023: We will proceed with pericardiocentesis today. Official echocardiogram is pending.
[2023-03-29 10:02] LABS: Troponin I < 0.01 ng/ml (0.00-0.034)
[2023-03-29] MEDS: LORazepam 0.5MG TABLET 0.5 MG PO (11:15)
--- NOTE | 2023-03-29 12:03 | HMH.PTEV ---
Physical Therapy Evaluation Rehab PT IP Evaluation Start: 03/29/23 09:56 Freq: ONCE Status: Active Protocol: Document 03/29/23 11:52 SHIVANIMATTEO (Rec: 03/29/23 12:03 DORIANCADE [id number]) Subjective/History History History Pt is an 82 y/o female who reported to [facility] ED via EMS for shortness of breath on . Per history & physical note, pt reported worsening over the last 24 hrs. he denied any fevers, chills, cough, chest pain, abdominal pain, nausea, vomiting, body aches, or other concerns. She states that it just feels like it is getting harder to breathe. Apparently, she ran out of her inhalers at home approximate 1 week ago, which seems to be consistent with onset of symptoms. She states she is supposed to be on Ventolin. No other concerns noted at this time. Per ED documentation her vitals were normal after EMS gave her a DuoNeb with some improvement in her symptoms. Admitted for treatment and management. Underwent CTA of chest. Imaging reviewed. Confirmed a large bilateral pleural effusion and pericardial effusion, that was also assess on bedside US at ER. There is a low concern for acute process. NO PEs, no tamponade. Patient hemodinamically stable. Medical History: COPD, hypertension, hypothyroidism, arthritis, Abnormal EKG, Chest pain, Dyspnea, Right bundle branch block, Tobacco dependence syndrome Subjective Subjective Pt reports she lives in a single story home with 1 step with HR to enter. Pt reports she lives with her son who does not work and is home all the time with her. Pt reports she uses a RW for ambulation, denies recent falls. Pt reports she is independent with mobility and ADLs but her son does help her lift her legs into bed. Pt reports she has someone come clean her home occasionally and her son helps her cook. Pt reports she does not drive at baseline and family assists with this. Pt reports some SOA still, states she is supposed to have a thoracentesis performed tomorrow. New diagnosis of cancer in past 12 No months? Rehab PT IP Eval Objective Appearance Patient Behavior Appropriate,Cooperative Patient Orientation Person,Place,Name,Birthday Difficulty following instructions none Speech Pattern Clear,Appropriate Ambulation Patient Able to Ambulate Yes Ambulation Observation IP General Gait Pattern Observation Shuffling Step Ambulation Distance (feet) 10 Ambulation Assistive Device Rolling Walker Ambulation Ability Contact Guard/Hand Hold Balance Ability to Arise Able, uses arms to help Sitting Balance Steady, safe Standing Balance Steady, wide stance Dynamic Sitting Balance Ability Good Dynamic Standing Balance Ability Fair Transfers Bed Transfer Ability Contact Guard/Hand Hold Sit to Stand Bed Transfer Ability Minimal x 1 (25% assist) Rehab PT IP prob,goals,plan Problems Date of Evaluation: 03/29/23 PT IP Problems Bed Mobility,Transfers,Gait, Balance,Self care,Safety Rehab Potential Rehab Potential Good Equipment Needs Assistive Devices Rolling / Wheeled Walker Plan PT Intervention Plan Bed Mobility,Transfers,Gait, Balance,Self care,Safety, Therapeutic Exercise Other Intervention Plan 1-2x/day PT Plan Frequency Daily Duration LOS Discharge Goals Bed Transfer Ability Supervision/Stand by Sit to Stand Chair Transfer Ability Contact Guard/Hand Hold Ambulation Assistive Device Rolling Walker Ambulation Distance (feet) 20 Discharge Plan PT Discharge Plan Pt will benefit from skilled PT while at [facility] to assist with LE strength and functional mobility. Pt is currently most appropriate to discharge home with 05/10 family assist and HHPT once deemed medically stable by MD. Without skilled therapy, pt is at an increased risk for falls, fractures, wounds and increased burden of care. Eval Complexity Eval Charge Codes 99232 - Moderate Complexity PHYSICIAN CERTIFICATION: I certify the specified therapy services for Lindsay Duarte are required, authorized, and reviewed every 30 days.
[2023-03-29] MEDS: LEVOTHYROXINE 75MCG (0.075MG) TAB 75 MCG PO (12:19)
--- NOTE | 2023-03-29 12:33 | IR_ITS ---
APPROVED REPORT Patient Location: Inpatient [facility] Bridge Operator: MADHURI Salgado RT (R) PROCEDURES Therapeutic pericardiocentesis INDICATION Pericardial effusion, Cardiac tamponade Informed consent was obtained prior to the procedure. COMPLICATIONS NONE Estimated Blood Loss: LESS THAN 10 ML TECHNIQUE Patient was taken to the Photo Lab Technician and sterilely prepped. Sedation was provided and under ultrasound-guided as well as fluoroscopic guidance needle was used to access the pericardial space. A wire was advanced and a dilator was advanced into the pericardial space. An oxygen saturation indicated the O2 sat was 17% which highly suggested being in the pericardial space. The pigtail catheter was advanced into 200 cc of blood-tinged effusion was drained. The pigtail catheter was sewn into place IMPRESSION Successful placement of pericardial drain into the pericardial space Heavy and diffuse fimbriated adhesions throughout the pericardial space likely creating multiple loculations PLAN 1. Keep pericardial drain in overnight 2. Repeat echocardiogram in the morning 3. Repeat large-volume thoracentesis 4. Patient may require a surgical pericardial window for palliative care of the likely recurrent pericardial effusion Electronically signed by : Bryson Quinatna MD 03/29/2023 15:37:57
--- OUTSIDE RECORDS SUMMARY | 2023-03-29 12:39 | XMS_ITS | Patient Health Record ---
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 Name Role Phone Akin Luo Primary Care Provider Akin Luo Unavailable Unavailable ALLERGIES Allergen (clinical drug ingredient) Drug/Non Drug Allergy documented on EMR Reaction Allergy Type Onset Date Status amoxicillin amoxicillin rash Drug Allergy Act valorie REASON FOR REFERRAL No Information MEDICATIONS Medication SIG (Take, Route, Frequency, Duration) Notes Start Date End Date Status levothyroxine 50 mcg (0.05 mg) 1 tab(s) orally once a day for 30 day(s) 07/28/2021 Active MiraLax - as directed orally o nce a day for 30 days 02/28/2020 Active omeprazole 40 mg 1 cap(s) orally once a day for 90 days 06/05/2019 Active AmLODIPine Besylate 5MG 1 tab(s) orally once a day for 30 day(s) Active losartan 50 mg 1 tab(s) orally twic e daily for 90 day(s) Active Spacer For Meter Dose Inhaler Use as directed With inhalers 04/30/2017 Active ergocalciferol 50,000 intl units 1 cap(s) orally once a week for 30 day(s) 07/28/2021 Active Stiolto Respimat 60 ACT 2.5 mcg-2.5 mcg/inh 2 puff(s) inhaled every 24 hours for 30 day(s) Active Lidocaine, Topical 5% 1 patch applied topically once a day, on for 12 hours, off for 12 hours for 30 day(s) 07/23/2021 Active Ventolin HFA CFC free 90 mcg/inh 2 puff(s) inhaled 4 times a day for 30 days 02/14/2016 Active hydroxyurea 500 mg 1 cap(s) orally mon- fri for 126 Active IMMUNIZATIONS Vaccine Route Administration Date Status Comme nts Pneumovax 23 Unknown 11/18/2016 Refused Fluvirin (MEDICARE ONLY) Unknown 11/18/2016 Refused SOCIAL HISTORY Sex Assigned At : Social History Observation Description Sex Assigned At Unknown PROBLEMS Problem Type ICD Code Onset Dates Problem Status W/U Status Risk SNOMED Code Notes Problem Polycythemia vera (D45) Active confirmed 859425058 Problem Generalized anxiety disorder (F41.1) Active confirmed 45364118 Problem Chronic rhinitis (J31.0) Active confirmed 16616071 Problem Mucopurulent chronic bronchitis (J41.1) Active confirmed 06242160 Problem Panlobular emphysema (J43.1) Active confirmed 1895540 Problem Heartburn (R12) Active confirmed 870196 00 Problem Vitamin D deficiency (E55.9) Active confirmed 08368328 Problem GERD without esophagitis (K21.9) Active confirmed Gastroesophagea l reflux disease (833179473) Problem Hypertension, essential (I10) Active confirmed 49188427 Problem Tobacco abuse (Z72.0) Active confirmed 16591862 Problem COPD exacerbation (J44.1) Active confirmed 101598408 Problem Other chronic pain (G89.29) Active confirmed 04092611 Problem Acquired hypothyroidism (E03.9) Active confirmed 522587378 Problem Primary osteoarthritis involving multiple joints (M15.0) Active confirmed 091872216 Problem Inflammation of right sacroiliac joint (M46.1) Active confirmed 86304119633566972 Problem Nocturnal dyspnea (R06.00) Active confirmed 225227908 Problem Anemia due to vitamin B12 deficiency, unspecified B12 deficiency type (D51.9) Active confirmed 40865608 Problem DDD (degenerative disc disease), thoracolumbar (M51.35) Active confirmed 56004797 Problem Chronic constipation (K59.09) Active confirmed 942408529 Problem Lumbar radiculopathy, right (M54.16) Active confirmed 300872690 Problem 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 confirmed 657244474 Problem Arthritis of left shoulder region (M19.012) Active confirmed 7305736806904480 Problem Thoracic degenerative disc disease (M51.34) Active confirmed 44845860 Problem Incomplete right bundle branch block (I45.10) Active confirmed Incomplete ri ght bundle branch block (658911513) Problem Low back pain, unspecified (M54.50) Active confirmed 920093315 PLAN OF TREATMENT Pending Test Test Name Order Date X ray : Chest 07/23/2016 MRI : Lumbosacral Spine 07/18/2015 CT Scan : Chest, Without Contrast 2017 Urinalysis 03/19/2017 occult blood 07/18/2015 DEXA Hip and Spine - Screening 7 Physical Therapy 06/26/2020 Mammogram : Bilateral 07/23/2016 C-CMP 01/23/2019 C-LIPID PANEL 01/23/2019 C-FOLATE 12/18/2015 C-HEPATITIS PANEL 01/24/2018 CT Scan : Neck & Soft Tissue with and wi thout contrast 08/28/2019 Urine Culture, Routine 01/23/2019 Urine Culture, Routine 03/19/2017 c-peripheral blood smear 08/28/2019 VENIPUNCT, ROUTINE* 04/22/2015 VENIPUNCT, ROUTINE* 07/18/2015 M-Comprehensive Metabolic Panel 06/05/19 20 Future Test Test Name Order Date M-Complete Blood Count Auto Diff 021 M-Comprehensive Metabolic Panel 07/02/19 21 M-Lipid Panel 07/01/2020 M-Thyroid Stimulating Hormone 07/01/2020 M-Vitamin B12 07/01/2020 M-Vitamin D 25 Hydroxy 07/01/2020 Insurance Providers Payer Name Payer Address Payer Phone Subscriber Number Group Number Insured Name Patient Relationship to Insured Coverage Start Date Coverage End Date [facility] MEDICARE [address] [address] [place] [address] [id number] Lindsay Duarte Self - patient is the insured MEDICATIONS ADMINISTERED Medication Instructions Date of Administration Dosage Notes Cyanocobalamin/B-12 Pt's Own Medication 06/08/2017 1 mL Cyanocobalamin/B-12 Pt's Own Medication 06/15/2017 1 mL Cyanocobalamin/B-12 Pt's Own Medication 06/22/2017 mrdication b rought to office by patient Cyanocobalamin/B-12 Pt's Own Medication 02/02/2018 Cyanocobalamin/B-12 Pt's Own Medication 02/10/2018 Cyanocobalamin/B-12 Pt's Own Medication 02/17/2018 Cyanocobalamin/B-12 Pt's Own Medication 02/24/2018 Cyanocobalamin/B-12 Pt's Own Medication 03/10/2018 Cyanocobalamin/B-12 Pt's Own Medication 03/16/2018 1 mL Cyanocobalamin/B-12 Pt's Own Medication 03/30/2018 1 mL Cyanocobalamin/B-12 Pt's Own Medication 04/08/2018 1 mL Cyanocobalamin/B-12 Pt's Own Medication 04/25/2018 Cyanocobalamin/B-12 Pt's Own Medication 10/18/2018 1 mL Cyanocobalamin/B-12 Pt's Own Medication 11/04/2018 Cyanocobalamin/B-12 Pt's Own Medication 06/09/2019 1 mL Cyanocobalamin/B-12 Pt's Own Medication 06/15/2019 1 mL Cyanocobalamin/B-12 Pt's Own Medication 06/23/2019 1 mL Cyanocobalamin/B-12 Pt's Own Medication 06/30/2019 1 mL Cyanocobalamin/B-12 Pt's Own Medication 07/19/2019 1 mL Cyanocobalamin/B-12 Pt's Own Medication 08/28/2019 1 mL Cyanocobalamin/B-12 Pt's Own Medication 09/18/2019 1 mL Cyanocobalamin/B-12 Pt's Own Medication 10/20/2019 Cyanocobalamin/B-12 Pt's Own Medication 11/24/2019 1 mL Cyanocobalamin/B-12 Pt's Own Medication 01/09/2020 1 mL Cyanocobalamin/B-12 Pt's Own Medication 02/28/2020 1 mL Cyanocobalamin/B-12 Pt's Own Medication 04/05/2020 1 mL Kenalog 40mg 12/28/2016 40 mg Kenalog 40mg 03/19/2017 40 mg Kenalog 40mg 04/30/2017 40 mg Kenalog 40mg 08/16/2017 40 mg Triamcinolone Acetonide 40mg Injection 06/15/2019 1 mL Triamcinolone Acetonide 40mg Injection 07/19/2019 1 mL Kenalog 06/04/2016 1 mL MEDICAL (GENERAL) HISTORY Medical History History ICD Code hypothyroidism HTN thrombocytosis arthritis COPD Tobacco abuse Anxiety Lipoma of spine Surgical History Surgery Date(Month/Year) hysterectomy thyroidectomy bladder Hospitalization History Reason Date(Month/Year) above stomach pain 2014
--- NOTE | 2023-03-29 13:33 | HMH.OTEV ---
OT Inpatient Evaluation Rehab OT IP Evaluation Start: 03/29/23 09:56 Freq: ONCE Status: Active Protocol: Document 03/29/23 13:28 OSEI (Rec: 03/29/23 13:32 [facility] [id number]) Rehab OT IP Assessment Subjective History Pt oriented x 3 on arrival. Pt agreeable to engage in therapy evaluation. Pt is an 82 y/o female who reported to [facility] ED via EMS for shortness of breath on . Per history & physical note, pt reported worsening over the last 24 hrs. he denied any fevers, chills, cough, chest pain, abdominal pain, nausea, vomiting, body aches, or other concerns. She states that it just feels like it is getting harder to breathe. Apparently, she ran out of her inhalers at home approximate 1 week ago, which seems to be consistent with onset of symptoms. She states she is supposed to be on Ventolin. No other concerns noted at this time. Per ED documentation her vitals were normal after EMS gave her a DuoNeb with some improvement in her symptoms. Admitted for treatment and management. Underwent CTA of chest. Imaging reviewed. Confirmed a large bilateral pleural effusion and pericardial effusion, that was also assess on bedside US at ER. There is a low concern for acute process. NO PEs, no tamponade. Patient hemodinamically stable. Subjective Pt reports she lives in a single story home with 1 step with HR to enter. Pt reports she lives with her son who does not work and is home all the time with her. Pt reports she uses a RW for ambulation, denies recent falls. Pt reports she is independent with mobility and ADLs but her son does help her lift her legs into bed. Pt reports she has someone come clean her home occasionally and her son helps her cook. Pt reports she does not drive at baseline and family assists with this. Pt reports some SOA still, states she is supposed to have a thoracentesis performed tomorrow. [ End ] Objective Patient Orientation Person,Place,Birthday Right Upper Extremity Gross ROM WFL Left Upper Extremity Gross ROM WFL Bed Mobility bed mobility-scooting,bed mobility - supine/sit Assist Level Contact Guard/Hand Hold Transfer Training Sit/Stand Transfer Assist Level Minimal x 1 (25% assist) Rehab OT IP prob,goals,plan Problems Date of Evaluation: 03/29/23 OT IP Problems Bed Mobility,Transfers,Balance ,Self care,Safety Rehab Potential Rehab Potential Good Equipment Needs Assistive Devices Rolling / Wheeled Walker Plan OT intervention Plan Bed Mobility,Transfers,Balance ,Self care,Safety,Therapeutic Exercise OT Plan Frequency BID Duration LOS Discharge Goals Bed Mobility Ability Standby Assistance Sit to Stand Chair Transfer Ability Contact Guard/Hand Hold Chair Transfer Ability Contact Guard/Hand Hold Chair Transfer Technique Sit to/from Ambulatory Chair Transfer Assistive Devices Rolling Walker Lower Body Dressing Ability Contact Guard Upper Body Dressing Ability Standby Assistance Bathing Ability Contact Guard Performing Toilet Hygiene Ability Standby Assistance Overall Commode/Toilet Transfer Ability Standby Assistance,Contact Guard Commode/Toilet Transfer Technique Sit to/from Ambulatory Commode/Toilet Transfer Assistive Grab Bars Devices Oral Care Assist Standby Assistance Decrease in Endurance Yes Discharge Plan OT Discharge Plan Pt will benefit from skilled OT while at [facility]. Pt is currently most appropriate to discharge home with / family assist and HHOT once deemed medically stable by MD. Without skilled therapy, pt is at an increased risk for falls, fractures, wounds and increased burden of care. Eval Complexity Eval Charge Codes 34118 - Moderate Complexity PHYSICIAN CERTIFICATION: I certify the specified therapy services for Lindsay Duarte are required, authorized, and reviewed every 30 days.
[2023-03-29] MEDS: HEPARIN 1,000 UNITS/500ML NS (CATH LAB) 3000 UNIT IV (14:36)
[2023-03-29] MEDS: 0.9 % SODIUM CHLORIDE 500 ML 25 ML IV (14:36)
[2023-03-29] MEDS: LIDOCAINE 1% 10ML MDV 20 ML IJ (14:36)
[2023-03-29] MEDS: MIDAZOLAM 2MG/2ML VIAL 1 MG IV (14:52)
[2023-03-29] MEDS: FENTANYL 100MCG/2ML VIAL 50 MCG IV (14:53)
--- NOTE | 2023-03-29 16:08 | PC.NURSE ---
PT RETURNED FROM [facility] TAIL[facility].
--- NOTE | 2023-03-29 18:14 | PC.NURSE ---
A&OX4. PT HAS TOLERATED RA WELL THROUGHOUT SHIFT. RESPIRATIONS REGULAR AND UNLABORED. DIMINISHED LUNG SOUNDS WITH WHEEZES SCATTERED THROUGHOUT. NO COUGH NOTED. NO EDEMA NOTED. HEART RATE REGULAR. ACTIVE BOWEL SOUNDS HEARD IN ALL 4 QUADRANTS. SOFT AND NONTENDER. PT HAD A SMALL BM TODAY. PT VOIDS PER BSC WITH CLEAR YELLOW URINE NOTED. +1 PULSES NOTED THROUGHOUT. FAMILY HAS VISITED THROUGHOUT SHIFT. PT HAD PERICARDIOCENTESIS WHERE A PERICARDIAL DRAIN WAS PLACED. PLAN TO BE REMOVED TOMORROW BY . ALSO PLAN TO HAVE THORACENTESIS TOMORROW. FAMILY AWARE OF BOTH. BLOOD NOTED IN PERICARDIAL DRAINAGE BACK. UNCHANGED FROM ARRIVAL TO FLOOR. CALL LIGHT WITHIN REACH. BED IN LOWEST POSITION. DENIES CHEST PAIN, SHORTNESS OF AIR, OR ANY PAIN OR NAUSEA THUS FAR. VSS.
[2023-03-29] MEDS: ACETAMINOPHEN 325MG TAB 650 MG PO (21:19)
[2023-03-30] VITALS (9 sets, daily range): BP systolic 112–134; BP diastolic 61–79; PULSE 69–97; RESP 16–20; TEMP 36.5–36.8; O2SAT 91–98; BMI 21.0
--- NOTE | 2023-03-30 | US_ITS ---
FINAL REPORT CLINICAL HISTORY: PLEURAL EFFUSION -- SALOMON BARILLAS -- LT SIDE -- 1060 ML DRAINED FINDINGS: ULTRASOUND-GUIDED THORACENTESIS HISTORY: Pleural effusion. ATTENDING PHYSICIAN: Dr. Gomez PHYSICIAN RESIDENTIAL LIFE DIRECTOR: Salomon Maguire PA-C TECHNIQUE: Informed consent was obtained from the patient. The indications and complications were discussed with the patient prior to beginning the procedure. This included, but was not limited to pain, bleeding, infection, and pneumothorax requiring chest tube placement. The left back was then prepped and draped in sterile fashion. 1% Lidocaine was used for local anesthesia. Utilizing sonographic guidance, a standard thoracentesis needle and sheath were inserted into the pleural space and approximately 1060 mL of clear pleural fluid was successfully removed without complication. The patient tolerated the procedure well. IMPRESSION: Technically successful sonographic guided left-sided thoracentesis as above. Films reviewed , interpreted and dictated by Dr. Gomez Transcribed by Salomon Maguire PA-C. Reviewed, Interpreted and Dictated by Job Gomez III, MD Transcribed by ERAN Reagan Authenticated and [facility]
--- NOTE | 2023-03-30 | XR_ITS ---
FINAL REPORT CLINICAL HISTORY: .S/P THORA COMPARISON: 09/30/2021 FINDINGS: The heart and mediastinal structures are stable. There is a catheter overlying the left lower thorax. The site is uncertain, by history the patient is status post thoracentesis. Would recommend CT for more accurate localization if clinically indicated. Small bilateral effusions are present, as well as right basilar atelectasis versus loculated fluid. There is a calcific density in the subcoracoid region, likely a loose body. There is no pneumothorax. . . IMPRESSION: A catheter is present overlying the left lower thorax, the site of which is uncertain and would recommend CT for more accurate localization if clinically indicated. Small bilateral pleural effusions are present as well as right basilar atelectasis versus loculated fluid. Reviewed, Interpreted and Dictated by Job Gomez III, MD Transcribed by Karissa Silvestre Authenticated and [facility]
[2023-03-30] MEDS: IPRATROPIUM/ALBUTEROL 3 ML NEB IH ×2 (02:20→13:52)
--- NOTE | 2023-03-30 05:50 | PC.NURSE ---
Addendum entered by Fanny Moreira, AYANNA 03/30/23 06:46: Pericardial drain scant amount of output this shift. Original Note: Pt is alert and oriented. Pt gets up to the bedside commode. Pt complained of soreness around pericardial drain site, treated per may. Pt stated to me her concern about getting choked when she drinks from a straw, notified MD. Pt requested breathing treatment after getting up to bedside commode, respiratory called, applied 1L NC for pt O2 sat to maintain >90%. Lung sounds diminished with wheezes. Pericardial drain CDI. Pt has had no other complaints this shift and has rested well through the night. Call light in reach.
[2023-03-30] MEDS: LEVOTHYROXINE 75MCG (0.075MG) TAB 75 MCG PO (06:10)
[2023-03-30 06:32] LABS: Eosinophils # 0.1 K/mm3 (0.0-0.4); Eosinophils % 0.7 % (0.1-12.0); Hematocrit 27.2 % (37.0-47.0); Hemoglobin 8.9 g/dL (12.2-16.2); Lymphocytes # 0.8 K/mm3 (0.7-4.5); Mean Corpuscular HGB Conc 32.6 g/dL (31.8-35.4); Mean Corpuscular Hemoglobin 37.2 pg (27.0-31.2); Mean Corpuscular Volume 114.1 fl (81-99); Mean Platelet Volume 8.9 fl (7.4-10.4); Monocytes # 0.4 K/mm3 (0.1-1.0); Monocytes % 4.8 % (1.7-9.3); Neutrophils # 7.2 K/mm3 (1.8-7.8); Neutrophils % 84.5 % (37.0-80.0); Platelet Count 416 K/mm3 (142-424); Red Blood Count 2.39 M/mm3 (4.20-5.40); Red Cell Distribution Width 17.7 % (11.5-17.5); White Blood Count 8.5 K/mm3 (4.8-10.8)
[2023-03-30 06:43] LABS: Activated Partial Thrombo Time 24.5 seconds (22.8-30.6); INR 1.01 (0.9-1.1); Prothrombin Time 10.9 seconds (10.1-12.5)
[2023-03-30 06:47] LABS: Alanine Aminotransferase 22 U/L (12-78); Albumin/Globulin Ratio 1.1 (1.1-1.8); Alkaline Phosphatase 71 U/L (38-126); Anion Gap 11.9 mEq/L (5-15); Aspartate Amino Transferase 30 U/L (14-36); Bilirubin,Total 0.2 mg/dl (0.2-1.3); Blood Urea Nitrogen 22 mg/dl (7-17); Calcium 7.5 mg/dl (8.4-10.2); Carbon Dioxide 24 mmol/L (22.0-30.0); Chloride 99 mmol/L (98-107); Creatinine Clearance Estimated 30 mL/min (50-200); Estimated Glomerular Filt Rate 43 ml/min (>60); GFR (African American) 52 ML/MIN (>60); Globulin 2.7 g/dL (1.3-3.2); Glucose 106 mg/dl (74-100); Potassium 3.9 mmoL/L (3.5-5.1); Sodium 131 mmol/L (136-145); Total Protein,Serum 5.7 g/dl (6.3-8.2)
[2023-03-30] MEDS: ENOXAPARIN 40MG/0.4ML SYRINGE 40 MG SQ (08:04)
[2023-03-30] MEDS: PANTOPRAZOLE 40MG TABLET 40 MG PO (08:10)
--- NOTE | 2023-03-30 08:28 | CA_ITS ---
APPROVED REPORT EXAM: Limited 2D Echocardiogram Jack Tamp Operator: Roberta Holland RT(R) Ht: 5 ft 1 in Wt: 111lbs BSA: 1.47 BP: 129/81 mmHg Indications: post pericardial effusion drain, limited echo to reassess effusion. CP, abn EKG, cancer. Conclusion This is a limited TTE to evaluate for pericardial effusion. Limited windows were obtained. The left ventricle is normal in size. The left ventricular systolic function is hyperdynamic. LVEF is 70%. The right ventricle is grossly normal in size and function. There is a small sized, anterior pericardial effusion present. The largest pocket measures approximately 0.3 cm in diastole. A pleural effusion is also present. Compared to prior TTE from 1 day prior on 03/29/2023, the pericardial effusion is improved. The RV chamber collapse is no longer present. Electronically signed by : Isis Zhang MD 03/31/2023 03:33:55
--- NOTE | 2023-03-30 09:20 | HMH.SLDYSPHA ---
Speech & Language Evaluation Speech/Language Dysphagia Evaluation Start: 03/30/23 09:12 Freq: ONCE Status: Active Protocol: Document 03/30/23 09:13 ISRRAELLATRELL (Rec: 03[facility]30[facility]23 09[id number] Dysphagia Assess/Goals/Plan Assessment Date of Evaluation: 03/30/23 Evaluation Type Initial Certification Assessment/Problems r/o aspiration per MD order. Does Patient Qualify for Service No Qualify/Failure Comment Based on clinical bedside swallow evaluation results, Ms Kailyn Duarte's manipulation and mastication of bolus, as well as her swallowing appear to be WFL at the bedside and no further skilled speech therapy services are warranted at this time. She is cleared to continue on her current diet with standard aspiration precautions. Recommendations PHYSICIAN CERTIFICATION: The specified therapy services are required, authorized, and reviewed every 30 days. Diet Recommendations Normal Liquid Type Recommendations Normal/Thin SL Swallow Guidelines Alt bite w/sip thru meal, Standard Aspiration Prec.,Eat at slow rate Dysphagia Swallow Precautions/Strategies Sitting Upright (90 deg),Small Bites and Sips,Alternate Liquids/Solids Plan Pt/Guardian verbally ack understanding Yes of dx/prognosis/goals G -code Required No Education Instructions provided Discussed CSE results, diet recommendations, and aspiration precautions with pt , nursing, and care management all of which expressed understanding. Pt/Caregiver able to recall information Able to recall/restate Reinforcement needed No Speech & Language HPI History Present Illness Description of Patient Problem 82-year-old female presented to ED on 03/29/23 with a PMHx of COPD, right bundle branch block, hypertension, hypothyroidism, and arthritis brought in by EMS to the ED for evaluation of shortness of breath. Patient reported that it got worse over the last 24 hours. She denied any fevers, chills, cough, chest pain, abdominal pain, nausea, vomiting, body aches, or other concerns. She states that it just feels like it is getting harder to breathe. Apparently , she ran out of her inhalers at home approximate 1 week ago , which seems to be consistent with onset of symptoms. She states she is supposed to be on Ventolin. Chest CTA impressions reported : 1. No pulmonary emboli identified. 2. Large left and moderate right pleural effusions. 3. Consolidation/atelectasis in the lingula, with mild interstitial prominence and hazy opacity in the remainder of the left upper lobe. The consolidation seen inferiorly could represent the patient's reported lung cancer, though can not exclude atelectasis or pneumonia. Comparison with recent imaging recommended. 4. Small anterior left pneumothorax. Given the appearance of the lingula, can not exclude an ex vacuo pneumothorax. Comparison with recent imaging of the chest recommended. 5. Ssni-ky-vppyzkyj atelectasis in right middle lobe. 6. Moderate pericardial effusion. 7. Innumerable renal cysts, incompletely imaged, with a couple of the lesions intermediate in density. Could represent hemorrhagic and/or proteinaceous cysts, but recommend comparison with any prior imaging of the kidneys. Pt/Caregiver Concerns Pt reported minor difficulty with liquids solely when drinking from straw; nursing reported no observed difficulty with meds/meals. Rehab Services Assessed Speech therapy General Information General Current Food Consistancy Regular,Thin Liquids Dentition Good Dentition Oxygen Status Room Air Patient Orientation Person,Place,Time,Situation Ability to Follow Directions Good Communication Ability No Impairment Dysphagia:Food Presentation Evaluation Food Type Mechanical Soft,Regular,Liquid ,Pudding,Other Dysphagia Evaluation Summary Pt was seen sitting upright in the bed with family resting at bedside. She was A&O x4. She was presented with the following bolus consistencies: thin liquid (via ice chip, spoonful of water, open cup/ straw sip, two consecutve sips from open cup and straw), pt refused puree trial, pudding, mixed consistency (via peaches in juice), mechanical soft ( nutrigrain bar), and regular ( aislinn cracker.) No overt s/ sxs of aspiration were observed during the assessment and no s/sxs of discomfort of distress were exhibited. Pt's mastication and manipulation of bolus appear to be WFL, as well as her swallowing. She is clear to continue on her regular/thin diet at this time . No further skilled speech therapy services are warranted at this time. Stroke Dysphagia Assessment PHYSICIAN CERTIFICATION: I certify the specified therapy services for Lindsay Duarte are required, authorized, and reviewed every 30 days.
--- NOTE | 2023-03-30 09:29 | EXP.CARD.PN ---
Subjective Subjective Date: 03/30/23 Time: 08:00 Principal diagnosis: Bilateral pleural effusions, pericardial effusion Interval history: Patient doing well this morning. Reports shortness of breath has improved. Pericardial drain in place. Morning labs reviewed. Exam Data for Last 24 hours Vital signs and Labs for Last 24 Hours: Temp Pulse Resp BP Pulse Ox O2 Del Method O2 Flow Rate 97.7 F 91 H 16 115/61 98 Room Air 1 03/30/23 08:00 03/30/23 08:00 03/30/23 08:00 03/30/23 08:00 03/30/23 08:00 03/30/23 09:13 03/30/23 08:00 Laboratory Results - last 24 hr 03/29/23 09:27: Troponin I < 0.01 03/30/23 05:43: WBC 8.5, RBC 2.39 L, Hgb 8.9 L, Hct 27.2 L, MCV 114.1 H, MCH 37.2 H, MCHC 32.6, RDW 17.7 H, Plt Count 416, MPV 8.9, Neut % (Auto) 84.5 H, Lymph % (Auto) 10.0, [place] % (Auto) 4.8, Eos % (Auto) 0.7, Baso % (Auto) 0.0 L, Neut # (Auto) 7.2, Lymph # (Auto) 0.8, [place] # (Auto) 0.4, Eos # (Auto) 0.1, Baso # (Auto) 0.0, PT 10.9, INR 1.01, APTT 24.5, Sodium 131 L, Potassium 3.9, Chloride 99, Carbon Dioxide 24, Anion Gap 11.9, BUN 22 H D, Creatinine 1.20 H, Estimated Creat Clear 30, Estimated GFR 43 L, Est GFR ( Amer) 52 L, Glucose 106 H D, Calcium 7.5 L, Magnesium 2.0, Total Bilirubin 0.2, AST 30, ALT 22, Alkaline Phosphatase 71, Total Protein 5.7 L, Albumin 3.0 L D, Globulin 2.7, Albumin/Globulin Ratio 1.1 I & O for Last 24 hours: Intake & Output 03/27/23 03/28/23 03/29/23 03/30/23 23:59 23:59 23:59 23:59 Intake Total 540 / 540 345 / 345 Output Total 1850 / 1850 400 / 400 Balance -1310 / -1310 -55 / -55 Weight 117 lb 7 oz 114 lb 4.8 oz Constitutional Constitutional: no acute distress *Routine Respiratory Exam Respiratory: Present rhonchi and symmetric chest movement *Routine Cardiovascular Exam Cardiovascular: Present RRR, Normal S1 and Normal S2 *Routine Abdominal Exam Abdominal: Present soft and normoactive bowel sounds; Absent tenderness *Routine Extremities Exam Extremities: Present full ROM and normal capillary refill; Absent edema *Routine Skin Exam Skin: Present intact, dry and warm Detailed Neck Exam: Thyroids Thyroid: Absent bruit Progress Note: A&P Assessment and plan (1) Shortness of breath: Status: Acute (2) Chronic bilateral pleural effusions: Status: Acute (3) Pericardial effusion: Status: Acute (4) Metastatic adenocarcinoma: Status: Acute (5) HTN (hypertension): Status: Acute (6) Tobacco dependence syndrome: Status: Acute Assessment and plan: Bilateral Pleural effusion Pericardial effusion History of metastatic lung cancer Worsening dyspnea -Patient will see Dr. Begum outpatient -CTA chest shows large left and moderate right pleural effusion and a moderate pericardial effusion -Echo 03/29/2023 report shows a large pericardial effusion with possible RA strain, normal LV function -Status post pericardiocentesis. Drain in place. Repeat limited echo shows pericardial effusion has improved. -Plan for IR to drain left pleural effusion today or tomorrow. Hypertension -Continue losartan and amlodipine Tobacco use -Smoking cessation advised 03/30/2023 summary: Pericardial drain in place, repeat limited echo shows pericardial effusion has greatly improved. Patient is awaiting IR to drain left pleural effusion today or tomorrow.
[2023-03-30 11:54] LABS: Appearance,Body Fld. Cloudy; Source, Body Fld. Thoracentesis Fluid
[2023-03-30 11:56] LABS: Volume,Body Fld. 1060 mL
[2023-03-30 11:57] LABS: RBC,Body Fluid 18 cells/uL (< 10 X 10^3); TNC,Body Fluid 3067 cells/uL (< 1000)
[2023-03-30 13:29] LABS: Lactate Dehydrogenase 215 U/L (313-618)
[2023-03-30 13:44] LABS: Mononuclear WBCs,Body Fluid 18 %; Polynuclear WBC,Body Fluid 82 %
--- NOTE | 2023-03-30 14:55 | SW/DCPLANNER ---
Addendum entered by Radha Hopkins 04/01/23 11:35: Kira mnédez/ [facility] stated that services will begin this week for this patient. Addendum entered by Radha Hopkins 03/31/23 16:47: Patient information/order has been faxed to [facility]: I will follow up once information/order is reviewed. Patient will discharge home today. Original Note: I spoke w/ this patient regarding plans once medically stable for discharge. PT/OT evaluated patient and recommended home health services once medically stable for discharge. Patient is agreeable to home health and prefers to use [facility]. Patient information/order will be faxed at time of discharge. Discharge date is unknown at this time.
--- NOTE | 2023-03-30 15:16 | EXP.PN ---
Subjective *Date: 03/30/23 *Time: 15:16 Interval history: patient was seen and evaluated at the bedside. No reported acute events overnight, denies chest pain, shortness of breath, nausea, vomiting, abdominal pain. had pericardiocenetesis yesterday and tolerated well Exam Data for Last 24 hours Vital signs and Labs for Last 24 Hours: Temp Pulse Resp BP Pulse Ox O2 Del Method O2 Flow Rate 97.7 F 94 H 20 112/62 97 Nasal Cannula 1 03/30/23 11:23 03/30/23 12:00 03/30/23 11:23 03/30/23 11:23 03/30/23 11:23 03/30/23 13:00 03/30/23 13:00 Laboratory Results - last 24 hr 03/29/23 10:22: Fluid Source Thoracentesis fluid, Fluid Volume 1060, Fluid Appearance Cloudy, Fluid RBC (Auto) 18, Fld Tot Nucleated Cell 3067, Fld Polynuclear WBCs % 82, Fld Mononuclear WBCs % 18 03/30/23 05:43: WBC 8.5, RBC 2.39 L, Hgb 8.9 L, Hct 27.2 L, MCV 114.1 H, MCH 37.2 H, MCHC 32.6, RDW 17.7 H, Plt Count 416, MPV 8.9, Neut % (Auto) 84.5 H, Lymph % (Auto) 10.0, [place] % (Auto) 4.8, Eos % (Auto) 0.7, Baso % (Auto) 0.0 L, Neut # (Auto) 7.2, Lymph # (Auto) 0.8, [place] # (Auto) 0.4, Eos # (Auto) 0.1, Baso # (Auto) 0.0, PT 10.9, INR 1.01, APTT 24.5, Sodium 131 L, Potassium 3.9, Chloride 99, Carbon Dioxide 24, Anion Gap 11.9, BUN 22 H D, Creatinine 1.20 H, Estimated Creat Clear 30, Estimated GFR 43 L, Est GFR ( Amer) 52 L, Glucose 106 H D, Calcium 7.5 L, Magnesium 2.0, Total Bilirubin 0.2, AST 30, ALT 22, Alkaline Phosphatase 71, Total Protein 5.7 L, Albumin 3.0 L D, Globulin 2.7, Albumin/Globulin Ratio 1.1 03/30/23 13:07: Lactate Dehydrogenase 215 L I & O for Last 24 hours: Intake & Output 03/27/23 03/28/23 03/29/23 03/30/23 23:59 23:59 23:59 23:59 Intake Total 540 / 540 585 / 585 Output Total 1850 / 1850 800 / 800 Balance -1310 / -1310 -215 / -215 Weight 53.269 kg 51.846 kg Constitutional Constitutional: no acute distress *Routine HEENT Exam Head: Present normocephalic Eye: Present EOMI and PERRL ENT: Present mucous membranes moist *Routine Neck Exam Neck: Present supple; Absent lymphadenopathy *Routine Respiratory Exam Respiratory: Present CTA bilaterally *Routine Cardiovascular Exam Cardiovascular: Present RRR *Routine Abdominal Exam Abdominal: Present soft and normoactive bowel sounds; Absent tenderness *Routine Extremities Exam Extremities: Absent cyanosis, clubbing or edema *Routine Skin Exam Skin: Present warm; Absent rash *Routine Neurological Exam Neurological: Present alert and oriented X3 Assessment and Plan *Assessment and plan (1) Shortness of breath: Status: Acute Category: Medical Code(s): R06.02 - Shortness of breath (2) Chronic bilateral pleural effusions: Status: Acute Category: Medical Code(s): J90 - Pleural effusion, not elsewhere classified (3) Pericardial effusion: Status: Acute Category: Medical Code(s): I31.39 - Other pericardial effusion (noninflammatory) (4) Metastatic adenocarcinoma: Status: Acute Category: Medical Code(s): C79.9 - Secondary malignant neoplasm of unspecified site (5) HTN (hypertension): Status: Acute Qualifiers: Hypertension type: unspecified Qualified Code(s): I10 - Essential (primary) hypertension Category: Medical Code(s): I10 - Essential (primary) hypertension (6) Tobacco dependence syndrome: Status: Acute Category: Medical Code(s): F17.200 - Nicotine dependence, unspecified, uncomplicated Plan 82-year-old female with a PMHx of COPD, right bundle branch block, hypertension, hypothyroidism, and arthritis brought in by EMS to the ED for evaluation of shortness of breath. Patient reported that it got worse over the last 24 hours. On arrival most of the patient symptoms has been improved. Underwent CTA of chest. Imaging reviewed. Confirmed a large bilateral pleural effusion and pericardial effusion, that was also assess on bedside US at ER. There is a low concern for acute process. NO PEs, no tamponade. patient hemodinamically stable. Due to high risk of decompensation, case was discussed with ED provider for admission. Plan as follow: -Worsened dyspnea associated with chronic bilateral pleural effusion: s/p Thoracentesis Monitor for heart rate and rhythm. Monitor for O2 sats DuoNebs as needed -Pericardial effusion: s/p percardiocentesis No evidence of cardiac tamponade. Last echocardiogram from 2021 showed preserved ejection fraction Cardiology consult -History of metastatic lung cancer Initially this did not want to pursue any treatment. Patient currently issues need to follow-up with oncology -Hypertension on losartan and amlodipine -History of tobacco On nicotine patch. Lovenox for DVT prophylaxis. On Protonix for GI bleed prophylaxis Patient is DNR has pericardial fluid drain, will continue to monitor inpatient
--- NOTE | 2023-03-30 18:06 | PC.NURSE ---
Patient is alert and oriented x4. Son has been bedside all shift. Periods of anxiety noted, able to redirect to baseline. Minimal drainage noted from pericardial drain. PRN neb given. Has not voiced any pain or discomfort. In bed at this time eating supper.
[2023-03-30] MEDS: LORazepam 0.5MG TABLET 0.5 MG PO (21:07)
[2023-03-30] MEDS: ACETAMINOPHEN 325MG TAB 650 MG PO (21:08)
[2023-03-31] VITALS: PULSE 93
[2023-03-31 04:00] VITALS: BP 136/69; PULSE 79; PULSE 85; RESP 17; TEMP 36.6; O2SAT 96; BMI 21.0
[2023-03-31] MEDS: LEVOTHYROXINE 75MCG (0.075MG) TAB 75 MCG PO (06:14)
[2023-03-31 06:27] LABS: Alanine Aminotransferase 22 U/L (12-78); Alkaline Phosphatase 73 U/L (38-126); Anion Gap 10.5 mEq/L (5-15); Aspartate Amino Transferase 25 U/L (14-36); Bilirubin,Total 0.3 mg/dl (0.2-1.3); Blood Urea Nitrogen 24 mg/dl (7-17); Calcium 7.6 mg/dl (8.4-10.2); Carbon Dioxide 25 mmol/L (22.0-30.0); Chloride 102 mmol/L (98-107); Creatinine Clearance Estimated 25 mL/min (50-200); Estimated Glomerular Filt Rate 36 ml/min (>60); GFR (African American) 44 ML/MIN (>60); Globulin 2.9 g/dL (1.3-3.2); Glucose 92 mg/dl (74-100); Potassium 3.5 mmoL/L (3.5-5.1); Sodium 134 mmol/L (136-145); Total Protein,Serum 5.9 g/dl (6.3-8.2)
[2023-03-31 08:00] VITALS: BP 117/64; PULSE 80; PULSE 83; RESP 16; TEMP 36.8; O2SAT 92
[2023-03-31 08:22] LABS: Basophils % 0.1 % (0.1-2.0); Eosinophils # 0.3 K/mm3 (0.0-0.4); Eosinophils % 4.9 % (0.1-12.0); Hematocrit 29.1 % (37.0-47.0); Hemoglobin 9.4 g/dL (12.2-16.2); Lymphocytes # 0.9 K/mm3 (0.7-4.5); Lymphocytes % 15.7 % (10-50); Mean Corpuscular HGB Conc 32.5 g/dL (31.8-35.4); Mean Corpuscular Volume 114.1 fl (81-99); Mean Platelet Volume 9.6 fl (7.4-10.4); Monocytes # 0.3 K/mm3 (0.1-1.0); Monocytes % 5.2 % (1.7-9.3); Neutrophils # 4.4 K/mm3 (1.8-7.8); Neutrophils % 74.1 % (37.0-80.0); Platelet Count 464 K/mm3 (142-424); Red Blood Count 2.55 M/mm3 (4.20-5.40); Red Cell Distribution Width 17.7 % (11.5-17.5)
[2023-03-31 08:25] LABS: Anion Gap 9.5 mEq/L (5-15); Blood Urea Nitrogen 24 mg/dl (7-17); Calcium 7.7 mg/dl (8.4-10.2); Carbon Dioxide 26 mmol/L (22.0-30.0); Chloride 102 mmol/L (98-107); Creatinine Clearance Estimated 27 mL/min (50-200); Estimated Glomerular Filt Rate 39 ml/min (>60); GFR (African American) 47 ML/MIN (>60); Glucose 88 mg/dl (74-100); Potassium 3.5 mmoL/L (3.5-5.1); Sodium 134 mmol/L (136-145)
[2023-03-31] MEDS: PANTOPRAZOLE 40MG TABLET 40 MG PO (08:26)
[2023-03-31] MEDS: ENOXAPARIN 30MG/0.3ML SYRINGE 30 MG SQ (08:28)
--- NOTE | 2023-03-31 09:31 | P.PN_ITS ---
Subjective Subjective Date: 03/31/23 Time: 08:00 Principal diagnosis: Bilateral pleural effusions, pericardial effusion Interval history: Pericardial drain remains in place with minimal drainage noted. Patient is status post thoracentesis to drain left pleural effusion. Patient reports feeling well this morning, shortness of breath is greatly improved. Morning labs reviewed and stable. Exam Data for Last 24 hours Vital signs and Labs for Last 24 Hours: Temp Pulse Resp BP Pulse Ox O2 Del Method O2 Flow Rate 98.2 F 83 16 117/64 92 L Room Air 1 03/31/23 08:00 03/31/23 08:00 03/31/23 08:00 03/31/23 08:00 03/31/23 08:00 03/30/23 23:00 03/30/23 13:00 Laboratory Results - last 24 hr 03/29/23 10:22: Fluid Source Thoracentesis fluid, Fluid Volume 1060, Fluid Appearance Cloudy, Fluid RBC (Auto) 18, Fld Tot Nucleated Cell 3067, Fld Polynuclear WBCs % 82, Fld Mononuclear WBCs % 18 03/30/23 13:07: Lactate Dehydrogenase 215 L 03/31/23 05:54: WBC 6.0 D, RBC 2.55 L, Hgb 9.4 L, Hct 29.1 L, MCV 114.1 H, MCH 37.0 H, MCHC 32.5, RDW 17.7 H, Plt Count 464 H, MPV 9.6, Neut % (Auto) 74.1, Lymph % (Auto) 15.7, [place] % (Auto) 5.2, Eos % (Auto) 4.9, Baso % (Auto) 0.1, Neut # (Auto) 4.4, Lymph # (Auto) 0.9, [place] # (Auto) 0.3, Eos # (Auto) 0.3, Baso # (Auto) 0.0, Sodium 134 L 03/31/23 05:54: Sodium 134 L, Potassium 3.5 03/31/23 05:54: Potassium 3.5, Chloride 102 03/31/23 05:54: Chloride 102, Carbon Dioxide 25 03/31/23 05:54: Carbon Dioxide 26, Anion Gap 10.5 03/31/23 05:54: Anion Gap 9.5, BUN 24 H 03/31/23 05:54: BUN 24 H, Creatinine 1.40 H 03/31/23 05:54: Creatinine 1.30 H, Estimated Creat Clear 25 03/31/23 05:54: Estimated Creat Clear 27, Estimated GFR 36 L 03/31/23 05:54: Estimated GFR 39 L, Est GFR ( Amer) 44 L 03/31/23 05:54: Est GFR ( Amer) 47 L, Glucose 92 03/31/23 05:54: Glucose 88, Calcium 7.6 L 03/31/23 05:54: Calcium 7.7 L, Total Bilirubin 0.3, AST 25, ALT 22, Alkaline Phosphatase 73, Total Protein 5.9 L, Albumin 3.0 L, Globulin 2.9, Albumin/Globulin Ratio 1.0 L I & O for Last 24 hours: Intake & Output 03/28/23 03/29/23 03/30/23 03/31/23 23:59 23:59 23:59 23:59 Intake Total 540 / 540 855 / 855 120 / 120 Output Total 1850 / 1850 1000 / 1300 300 / 300 Balance -1310 / -1310 -145 / -445 -180 / -180 Weight 117 lb 7 oz 114 lb 4.8 oz 114 lb 4.814 oz Constitutional Constitutional: no acute distress *Routine Respiratory Exam Respiratory: Present CTA bilaterally and symmetric chest movement *Routine Cardiovascular Exam Cardiovascular: Present RRR, Normal S1 and Normal S2 *Routine Abdominal Exam Abdominal: Present soft and normoactive bowel sounds; Absent tenderness *Routine Extremities Exam Extremities: Present full ROM and normal capillary refill; Absent edema *Routine Skin Exam Skin: Present intact, dry and warm Detailed Neck Exam: Thyroids Thyroid: Absent bruit Progress Note: A&P Assessment and plan (1) Shortness of breath: Status: Acute (2) Chronic bilateral pleural effusions: Status: Acute (3) Pericardial effusion: Status: Acute (4) Metastatic adenocarcinoma: Status: Acute (5) HTN (hypertension): Status: Acute (6) Tobacco dependence syndrome: Status: Acute Assessment and Plan Assessment and Plan for All Diagnoses:: Bilateral Pleural effusion Pericardial effusion History of metastatic lung cancer Worsening dyspnea -Patient will see Dr. Begum outpatient -CTA chest shows large left and moderate right pleural effusion and a moderate pericardial effusion -Echo 03/29/2023 report shows a large pericardial effusion with possible RA strain, normal LV function -Status post pericardiocentesis. Drain in place. Repeat limited echo shows pericardial effusion has improved. -Status post thoracentesis, left pleural effusion drained. Patient tolerated well and reports shortness of air has greatly improved. Hypertension -Continue losartan and amlodipine Tobacco use -Smoking cessation advised THERESA -Kidney function slightly worse with a creatinine up to 1.3 today. 03/31/2023: Patient is CV stable. Plan to remove pericardial drain today. monitor throughout the evening, anticipate DC home tomorrow.
--- NOTE | 2023-03-31 10:45 | HMH.PROCNOTE ---
[facility] Procedure Note Date: 03/31/23 Time: 10:48 Procedure Note:: Date: 03/31/2023 Time: 10:48 Procedure Note:: Procedure: Pericardial drain removal Indication: Improvement/resolution of pericardial effusion Performed by: Bryson Quintana MD Procedure summary: The patient was given morphine 2 mg IV for pain control. Hemostats and a scalpel were used to snip the suture of the pericardial drain. The pericardial drain was then pulled from the chest wall/pericardium without any difficulty or complications. The patient tolerated this well with minimal discomfort. Complications: None
[2023-03-31] MEDS: MORPHINE 2MG/ML SYRINGE 2 MG IV (10:46)
[2023-03-31 12:00] VITALS: BP 149/69; PULSE 80; PULSE 86; RESP 16; TEMP 36.8; O2SAT 92
[2023-03-31 16:00] VITALS: BP 151/70; PULSE 86; PULSE 90; RESP 18; TEMP 36.4; O2SAT 95
--- NOTE | 2023-03-31 16:23 | EXP.DC.SUM ---
General Admission date:: 03/29/23 Discharge date: 03/31/23 HPI HPI HPI: This is a 82-year-old female with a PMHx of COPD, right bundle branch block, hypertension, hypothyroidism, and arthritis brought in by EMS to the ED for evaluation of shortness of breath. Patient reported that it got worse over the last 24 hours. She denied any fevers, chills, cough, chest pain, abdominal pain, nausea, vomiting, body aches, or other concerns. She states that it just feels like it is getting harder to breathe. Apparently, she ran out of her inhalers at home approximate 1 week ago, which seems to be consistent with onset of symptoms. She states she is supposed to be on Ventolin. No other concerns noted at this time. Per ED documentation her vitals were normal after EMS gave her a DuoNeb with some improvement in her symptoms. Admitted for treatment and management. Hospital Course Hospital Course Hospital Course: 82-year-old female with a PMHx of COPD, right bundle branch block, hypertension, hypothyroidism, and arthritis brought in by EMS to the ED for evaluation of shortness of breath. Patient reported that it got worse over the last 24 hours. On arrival most of the patient symptoms has been improved. Underwent CTA of chest. Imaging reviewed. Confirmed a large bilateral pleural effusion and pericardial effusion, that was also assess on bedside US at ER. There is a low concern for acute process. NO PEs, no tamponade. patient hemodinamically stable. Due to high risk of decompensation, case was discussed with ED provider for admission. Worsened dyspnea associated with chronic bilateral pleural effusion: s/p Thoracentesis Monitor for heart rate and rhythm. Monitor for O2 sats DuoNebs as needed -Pericardial effusion: s/p percardiocentesis No evidence of cardiac tamponade. Last echocardiogram from 2021 showed preserved ejection fraction Cardiology consult -History of metastatic lung cancer Initially this did not want to pursue any treatment. Patient currently issues need to follow-up with oncology -Hypertension on losartan and amlodipine -History of tobacco On nicotine patch. Lovenox for DVT prophylaxis. On Protonix for GI bleed prophylaxis Patient is DNR drain taken out by cardiology, ok to dc per cardiology Patient was seen and evaluated at the bedside on the day of discharge. Patient is stable for discharge. Patient wishes to be discharged. All patient questions were answered and patient was given time to ask questions. Patient was discharged in stable condition. Patient understands that she can return to ER in case of any sudden changes in health. Total time spent on DC - 38 mins Exam Data for Last 24 hours Vital signs and Labs for Last 24 Hours: Temp Pulse Resp BP Pulse Ox O2 Del Method O2 Flow Rate 97.6 F 86 18 151/70 H 95 Room Air 1 03/31/23 16:00 03/31/23 16:00 03/31/23 16:00 03/31/23 16:00 03/31/23 16:00 03/31/23 16:00 03/30/23 13:00 Laboratory Results - last 24 hr 03/31/23 05:54: WBC 6.0 D, RBC 2.55 L, Hgb 9.4 L, Hct 29.1 L, MCV 114.1 H, MCH 37.0 H, MCHC 32.5, RDW 17.7 H, Plt Count 464 H, MPV 9.6, Neut % (Auto) 74.1, Lymph % (Auto) 15.7, [place] % (Auto) 5.2, Eos % (Auto) 4.9, Baso % (Auto) 0.1, Neut # (Auto) 4.4, Lymph # (Auto) 0.9, [place] # (Auto) 0.3, Eos # (Auto) 0.3, Baso # (Auto) 0.0, Sodium 134 L 03/31/23 05:54: Sodium 134 L, Potassium 3.5 03/31/23 05:54: Potassium 3.5, Chloride 102 03/31/23 05:54: Chloride 102, Carbon Dioxide 25 03/31/23 05:54: Carbon Dioxide 26, Anion Gap 10.5 03/31/23 05:54: Anion Gap 9.5, BUN 24 H 03/31/23 05:54: BUN 24 H, Creatinine 1.40 H 03/31/23 05:54: Creatinine 1.30 H, Estimated Creat Clear 25 03/31/23 05:54: Estimated Creat Clear 27, Estimated GFR 36 L 03/31/23 05:54: Estimated GFR 39 L, Est GFR ( Amer) 44 L 03/31/23 05:54: Est GFR ( Amer) 47 L, Glucose 92 03/31/23 05:54: Glucose 88, Calcium 7.6 L 03/31/23 05:54: Calcium 7.7 L, Total Bilirubin 0.3, AST 25, ALT 22, Alkaline Phosphatase 73, Total Protein 5.9 L, Albumin 3.0 L, Globulin 2.9, Albumin/Globulin Ratio 1.0 L I & O for Last 24 hours: Intake & Output 03/28/23 03/29/23 03/30/23 03/31/23 23:59 23:59 23:59 23:59 Intake Total 540 / 540 855 / 855 320 / 320 Output Total 1850 / 1850 1000 / 1300 300 / 300 Balance -1310 / -1310 -145 / -445 Weight 53.269 kg 51.846 kg 51.846 kg Constitutional Constitutional: no acute distress *Routine HEENT Exam Head: Present normocephalic Eye: Present EOMI and PERRL ENT: Present mucous membranes moist *Routine Neck Exam Neck: Present supple; Absent lymphadenopathy *Routine Respiratory Exam Respiratory: Present CTA bilaterally *Routine Cardiovascular Exam Cardiovascular: Present RRR *Routine Abdominal Exam Abdominal: Present soft and normoactive bowel sounds; Absent tenderness *Routine Extremities Exam Extremities: Absent cyanosis, clubbing or edema *Routine Skin Exam Skin: Present warm; Absent rash *Routine Neurological Exam Neurological: Present alert and oriented X3 Results Data Completed and Pending Labs on day of discharge: Labs from last 24 hours 03/31/23 03/31/23 03/31/23 05:54 05:54 05:54 WBC RBC Hgb Hct MCV MCH MCHC RDW Plt Count MPV Neut % (Auto) Lymph % (Auto) [place] % (Auto) Eos % (Auto) Baso % (Auto) Neut # (Auto) Lymph # (Auto) [place] # (Auto) Eos # (Auto) Baso # (Auto) Sodium Potassium Chloride Carbon Dioxide Anion Gap BUN Creatinine Estimated Creat Clear Estimated GFR Est GFR ( Amer) 47 L Glucose 88 92 Calcium 7.7 L 7.6 L Total Bilirubin 0.3 AST 25 ALT 22 Alkaline Phosphatase 73 Total Protein 5.9 L Albumin 3.0 L Globulin 2.9 Albumin/Globulin Ratio 1.0 L 03/31/23 03/31/23 03/31/23 05:54 05:54 05:54 WBC RBC Hgb Hct MCV MCH MCHC RDW Plt Count MPV Neut % (Auto) Lymph % (Auto) [place] % (Auto) Eos % (Auto) Baso % (Auto) Neut # (Auto) Lymph # (Auto) [place] # (Auto) Eos # (Auto) Baso # (Auto) Sodium Potassium Chloride Carbon Dioxide Anion Gap BUN Creatinine 1.30 H Estimated Creat Clear 27 25 Estimated GFR 39 L 36 L Est GFR ( Amer) 44 L Glucose Calcium Total Bilirubin AST ALT Alkaline Phosphatase Total Protein Albumin Globulin Albumin/Globulin Ratio 03/31/23 03/31/23 03/31/23 05:54 05:54 05:54 WBC RBC Hgb Hct MCV MCH MCHC RDW Plt Count MPV Neut % (Auto) Lymph % (Auto) [place] % (Auto) Eos % (Auto) Baso % (Auto) Neut # (Auto) Lymph # (Auto) [place] # (Auto) Eos # (Auto) Baso # (Auto) Sodium Potassium Chloride Carbon Dioxide 26 Anion Gap 9.5 10.5 BUN 24 H 24 H Creatinine 1.40 H Estimated Creat Clear Estimated GFR Est GFR ( Amer) Glucose Calcium Total Bilirubin AST ALT Alkaline Phosphatase Total Protein Albumin Globulin Albumin/Globulin Ratio 03/31/23 03/31/23 03/31/23 05:54 05:54 05:54 WBC RBC Hgb Hct MCV MCH MCHC RDW Plt Count MPV Neut % (Auto) Lymph % (Auto) [place] % (Auto) Eos % (Auto) Baso % (Auto) Neut # (Auto) Lymph # (Auto) [place] # (Auto) Eos # (Auto) Baso # (Auto) Sodium 134 L Potassium 3.5 3.5 Chloride 102 102 Carbon Dioxide 25 Anion Gap BUN Creatinine Estimated Creat Clear Estimated GFR Est GFR ( Amer) Glucose Calcium Total Bilirubin AST ALT Alkaline Phosphatase Total Protein Albumin Globulin Albumin/Globulin Ratio 03/31/23 05:54 WBC 6.0 D RBC 2.55 L Hgb 9.4 L Hct 29.1 L MCV 114.1 H MCH 37.0 H MCHC 32.5 RDW 17.7 H Plt Count 464 H MPV 9.6 Neut % (Auto) 74.1 Lymph % (Auto) 15.7 [place] % (Auto) 5.2 Eos % (Auto) 4.9 Baso % (Auto) 0.1 Neut # (Auto) 4.4 Lymph # (Auto) 0.9 [place] # (Auto) 0.3 Eos # (Auto) 0.3 Baso # (Auto) 0.0 Sodium 134 L Potassium Chloride Carbon Dioxide Anion Gap BUN Creatinine Estimated Creat Clear Estimated GFR Est GFR ( Amer) Glucose Calcium Total Bilirubin AST ALT Alkaline Phosphatase Total Protein Albumin Globulin Albumin/Globulin Ratio DS: Diagnosis Discharge Diagnosis (1) Shortness of breath: Status: Acute Code(s): R06.02 - Shortness of breath (2) Chronic bilateral pleural effusions: Status: Acute Code(s): J90 - Pleural effusion, not elsewhere classified (3) Pericardial effusion: Status: Acute Code(s): I31.39 - Other pericardial effusion (noninflammatory) (4) Metastatic adenocarcinoma: Status: Acute Code(s): C79.9 - Secondary malignant neoplasm of unspecified site (5) HTN (hypertension): Status: Acute Code(s): I10 - Essential (primary) hypertension Qualifiers: Hypertension type: unspecified Qualified Code(s): I10 - Essential (primary) hypertension (6) Tobacco dependence syndrome: Status: Acute Code(s): F17.200 - Nicotine dependence, unspecified, uncomplicated Meds Home Medications and Allergies Home Medications Medication Instructions Recorded Confirmed Type amlodipine 5 mg tablet 5 mg PO DAILY 06/06/19 03/29/23 History hydroxyurea 500 mg capsule 500 mg PO MOTUWETHFR 09/02/21 03/29/23 History losartan 50 mg tablet 50 mg PO BID 09/02/21 03/29/23 History albuterol sulfate 90 mcg/actuation 1 inh inhalation QID PRN Shortness 03/29/23 03/29/23 History aerosol inhaler (Ventolin HFA) Of Breath Or Wheezing levothyroxine 75 mcg tablet 75 mcg PO AM 03/29/23 03/29/23 History New Prescriptions to Start Prescriptions: Allergies Allergy/AdvReac Type Severity Reaction Status Date / Time amoxicillin Allergy Intermediate I-RASH Verified 10/07/21 13:21 diphenhydramine Allergy Mild LEG PAIN Verified 10/07/21 13:21 Discharge Plan Disposition Patient Disposition: Home, Self-Care Condition: Good Discharge Order Discharge Orders: Discharge Order (Routine); Ordered 03/31/23 Ordered By: Debra Spicer Follow up Plan Follow up with: Michele Gray MD [Staff Physician] - 04/01/23 11:00 am Bryson Quintana MD [Staff Physician] - 04/07/23 10:45 am Trish Talley APRN [Referring] - 04/08/23 10:40 am Prescriptions/Medication Reconciliation: Continued amlodipine 5 mg tablet 5 mg PO DAILY hydroxyurea 500 mg capsule 500 mg PO MOTUWETHFR losartan 50 mg tablet 50 mg PO BID levothyroxine 75 mcg tablet 75 mcg PO AM albuterol sulfate [Ventolin HFA] 90 mcg/actuation HFA aerosol inhaler 1 inh INHALATION QID PRN (Reason: Shortness Of Breath Or Wheezing) Problem Reconciliation Problems Reviewed?: Yes Patient Discharge Instructions ACTIVITY: Ambulate as tolerated DIET: advance to your usual diet Patient Instructions: DI for Pericardiocentesis, DI for Surgical Site Infection, DI for Pleural Effusion Providers Primary Care Provider: Provider,Referral Admit Provider: John Whittaker Attending Provider: John Whittaker
--- NOTE | 2023-03-31 17:59 | PC.NURSE ---
Patient is alert and oriented x4. Able to communicate/voice needs or concerns. None noted at this time. She is awaiting her daughters arrival, stated she should be here around 10pm tonight to take her home. In bed eating supper at this time.
--- NOTE | 2023-03-31 19:19 | PC.NURSE ---
pt left the floor via wheelchair @ 19:19
[2023-04-01 11:12] LABS: LD, Body Fluid 1249 IU/L (.); Protein, Body Fluid 1.8 g/dL (.)
--- NOTE | 2023-04-01 13:46 | CARE MANAGER ---
Contacted patient related to hospital discharge. She states she is a little more short of breath today. She rescheduled her oncology appointment for today until next week on the same day as cardiology. She denies questions or concerns. GAYLE Armas
== END 2023-03-31 19:20 | disposition home health service (06) | DRG 181 ==
LOC: ER 04:42 → 2ND 04:51
PROVIDERS: Internal Medicine; Nurse Practitioner Family; Admitting Provider Internal Medicine Adolescent Medicine; Emergency Provider Emergency Medicine; Visit Provider Internal Medicine Adolescent Medicine
PROC: 0W9D3ZZ Drainage of Pericardial Cavity, Percutaneous Approach (ICD-10-PCS; principal; 2023-03-29 12:45)
DX: C34.90 Malignant neoplasm of unspecified part of unspecified bronchus or lung (principal); C79.9 Secondary malignant neoplasm of unspecified site; I31.39 Other pericardial effusion (noninflammatory); N17.9 Acute kidney failure, unspecified; I31.4 Cardiac tamponade; J91.0 Malignant pleural effusion; I10 Essential (primary) hypertension; E03.9 Hypothyroidism, unspecified; M19.90 Unspecified osteoarthritis, unspecified site; Z71.6 Tobacco abuse counseling; F17.200 Nicotine dependence, unspecified, uncomplicated
CPT/HCPCS: 32555; 33010; 33017; 36415; 71045; 71275; 76930; 80048; 80053; 81001; 82042; 82803; 83615; 83735; 83880; 84155; 84436; 84443; 84484; 85007; 85025; 85610; 85730; 87070; 87205; 87636; 88112; 88305; 88341; 88342; 88360; 89051; 92610; 93005; 93306; 93308; 94640; 97162; 97166; 97530; 99152; 99153; 99285; C1725; C1769; C1894; J1644; Q9967

== ENCOUNTER 2023-04-08 15:14 | Inpatient (IN) | payer MEDICARE, SELFPAY ==
[2023-04-08] VITALS (17 sets, daily range): BP systolic 101–154; BP diastolic 50–96; PULSE 83–117; RESP 12–26; TEMP 36.1–36.6; O2SAT 92–100; BMI 21.1; BMI 21.7
--- NOTE | 2023-04-08 | CA_ITS ---
APPROVED REPORT EXAM: Limited 2D Echocardiogram Workgroup Leader: Oksana Oseguera RVT Ht: 5 ft 1 in Wt: 112lbs BSA: 1.48 BP: 110/60 mmHg Indications: POST PERICARDIOCENTESIS Other Information Study Quality: Fair Conclusion This is a limited TTE to evaluate for pericardial effusion post-pericardiocentesis. Limited windows were obtained. There is a small-sized, anterior pericardial effusion present. The largest pocket measures 0.2 cm in diastole. There are no echo indications of tamponade. No evidence of chamber collapse. Compared to prior study on the same day on 04/08/2023, the pericardial effusion size is significant improved. Electronically signed by : Isis Zhang MD 04/09/2023 20:06:33
--- NOTE | 2023-04-08 14:29 | CA_ITS ---
APPROVED REPORT EXAM: Limited 2D Echocardiogram President [employer] Chief [employer] Officer: Oksana Oseguera RVT Ht: 5 ft 1 in Wt: 112lbs BSA: 1.48 BP: 105/55 mmHg Indications: PERICARDIAL EFFUSION CHECK, PRIOR PERICARDIOCENTESIS,SOA,LUNG CA M-Mode Dimensions RVDd 1.47 cm (0.9-2.6) LVDd 2.68 cm (3.5-5.7) LVDs 1.67 cm (3.5-5.7) IVSd 0.87 cm (0.6-1.1) PWd 0.67 cm (0.6-1.1) EF (Teich) 69.80% FS 37.70% EDV (Teich) 26.50 mL ESV (Teich) 8.00 mL Other Information Study Quality: Fair Conclusion This is a limited evaluation for pericardial effusion. Limited windows were obtained. The left ventricle is normal in size and systolic function. There is a moderate sized pericardial effusion, the largest pocket is noted anteriorly measuring up to 1.4 cm in diastole. There is early invagination of the right atrium and right ventricle in systole and diastole, respectively. The findings of early chamber collapse, as well as tachycardia, are suggestive of possible early tamponade. Clinical correlation is required. Compared to prior study from 03/30/2023, the pericardial effusion is now worse. The above findings were relayed at the time of image acquisition to the inpatient cardiology consult team. Electronically signed by : Isis Zhang MD 04/08/2023 15:41:04
--- NOTE | 2023-04-08 15:22 | HMH.PHAINT1 ---
Pharmacy Intervention Comments: MEDICATION RECONCILIATION COMPLETED ON PATIENT USING EXTERNAL FILL HISTORY FROM PHARMACY AND DISCHARGE SUMMARY FROM PREVIOUS ADMISSION. -ADA SHAVER, KIESHAD
--- NOTE | 2023-04-08 15:24 | IR_ITS ---
APPROVED REPORT Patient Location: Inpatient Closed Circuit Screen Watcher: MADHURI Salgado RT (R) PROCEDURES Therapeutic pericardiocentesis INDICATION Pericardial effusion, Cardiac tamponade Informed consent was obtained prior to the procedure. TECHNIQUE Patient taken to the Data Storage Specialist and sterilely prepped under urgent conditions. Versed and fentanyl were used for sedation and 1% lidocaine used to anesthetize the subxiphoid process. Needle was placed into the pericardial space followed by an 035 wire into the pericardial space. The tract was dilated and an 8 Egyptian pigtail catheter was advanced and 250 cc of bloody effusion was manually drained. Echocardiogram demonstrated virtually complete resolution of the pericardial effusion. At the end of the procedure the pericardial pigtail catheter was sewn into place and patient was transferred to the postop holding in stable condition IMPRESSION Successful pericardiocentesis alleviating cardiac tamponade PLAN 1. Alpine drain overnight 2. Consider transferring to tertiary center for pericardial window given recurrence of pericardial effusion with recurrent cardiac tamponade Electronically signed by : Bryson Quintana MD 04/08/2023 16:55:57
[2023-04-08] MEDS: 0.9 % SODIUM CHLORIDE 500 ML 25 ML IV (15:39)
[2023-04-08] MEDS: LIDOCAINE 1% 10ML MDV 20 ML IJ (15:40)
[2023-04-08] MEDS: MIDAZOLAM HCL 1MG/1ML 5ML VIAL 1 MG IV (16:00)
[2023-04-08] MEDS: FENTANYL 100MCG/2ML VIAL 50 MCG IV (16:01)
[2023-04-08] MEDS: HEPARIN 1,000 UNITS/500ML NS (CATH LAB) 3000 UNIT IV (16:01)
--- NOTE | 2023-04-08 16:45 | PC.NURSE ---
Patient arrived with approximately 250 ml bloody drainage in pericardiocentesis bag
--- NOTE | 2023-04-08 17:17 | CT_ITS ---
PROCEDURE INFORMATION: Exam: CT Chest Without Contrast; Diagnostic Exam date and time: 04/08/2023 5:57 PM Age: 82 years old Clinical indication: Dyspnea; Additional info: Dyspnea, increasing effusions TECHNIQUE: Imaging protocol: Diagnostic computed tomography of the chest without contrast. Radiation optimization: All CT scans at this facility use at least one of these dose optimization techniques: automated exposure control; mA and/or kV adjustment per patient size (includes targeted exams where dose is matched to clinical indication); or iterative reconstruction. COMPARISON: CT ANGIO CHEST PE PROTOCOL 03/29/2023 4:27 AM FINDINGS: Lungs: Bandlike opacity in the left upper lobe along the fissure likely reflecting atelectasis or scarring unchanged from previous. Dependent atelectasis in the lung bases. Pleural spaces: Large left pleural effusion and moderate-sized right pleural effusion. Overall no change in the size when compared to the previous study. The previously seen pneumothorax is no longer identified. Heart: Unremarkable. No cardiomegaly. No pericardial effusion. Lymph nodes: Unremarkable. No enlarged lymph nodes. Vasculature: Unremarkable. No aortic aneurysm. Kidneys and ureters: Upper abdomen reveals innumerable simple and complex renal cysts unchanged and partially imaged Bones/joints: Unremarkable. No acute fracture. Soft tissues: Unremarkable. IMPRESSION: No change in size of bilateral pleural effusions right greater than left. Dependent atelectasis.
--- NOTE | 2023-04-08 17:39 | EXP.HP ---
History of Present Illness *Admission Date: 04/08/23 *Reason for visit:: Dyspnea *History of present illness: Ms. Duarte is an 82-year-old female with metastatic adenocarcinoma of the lung, pericardial and pleural effusion, tobacco dependence, was seen in cardiology and oncology clinics today for follow-up. While in cardiology clinic was complaining of shortness of breath. Echo obtained showing recollection of pericardial effusion and concern for tamponade. Patient taken emergently to the Clinical Microbiologist for pericardial drain. Discussed case with cardiology, request admission for further management. Last admission, pleural effusion was drained confirming malignant effusion. Appears to have had recurrence of effusions. Has not been on any treatment as of yet for her lung cancer. Hydration after admission, patient is still somewhat fatigued from her pericardiocentesis. Draining bloody fluid from pericardial drain. Has some improvement in her shortness of breath. Denies fever, nausea, vomiting, chest pain. Complains of fatigue. [facility] Disclaimer: The information contained in this section may have been updated after the patient was seen, as this information can be updated by other users. Medical History Abdominal pain Abnormal EKG Arthritis Chest pain Chronic bilateral pleural effusions Dyspnea Falls Fatigue Heart murmur Hip pain, right HTN (hypertension) Left carotid bruit Low back pain Lung cancer Metastatic adenocarcinoma Pericardial effusion Pleural effusion Right bundle branch block Shortness of breath Tobacco dependence syndrome Social History Smoking Status: Former smoker alcohol intake: never current occupational status: employed and disabled Travel in the last 8 weeks: None household members: children housing: house Review of Systems Review of Systems Review of systems (narrative): 14 point review of systems performed, pertinent positives and negatives as per HPI Meds Home Medications and Allergies Home Medications Medication Instructions Recorded Confirmed Type hydroxyurea 500 mg capsule 500 mg PO MOTUWETHFR 09/02/21 04/08/23 History losartan 50 mg tablet 50 mg PO BID High Blood Pressure 09/02/21 04/08/23 History albuterol sulfate 90 mcg/actuation 2 puff inhalation Q4HP PRN 03/29/23 04/08/23 History aerosol inhaler (Ventolin HFA) Shortness Of Breath Or Wheezing levothyroxine 75 mcg tablet 75 mcg PO DAILY Thyroid 03/29/23 04/08/23 History amlodipine 10 mg tablet 10 mg PO DAILY High Blood Pressure 04/08/23 04/08/23 History New Prescriptions to Start Prescriptions: Allergies Allergy/AdvReac Type Severity Reaction Status Date / Time amoxicillin Allergy Intermediate I-RASH Verified 04/08/23 13:56 diphenhydramine Allergy Mild LEG PAIN Verified 04/08/23 13:56 Exam Data for Last 24 hours Vital signs and Labs for Last 24 Hours: Temp Pulse Resp BP Pulse Ox O2 Del Method O2 Flow Rate 97 F L 85 12 108/61 L 96 Room Air 96 04/08/23 15:53 04/08/23 16:20 04/08/23 16:20 04/08/23 16:20 04/08/23 16:20 04/08/23 17:14 04/08/23 17:14 I & O for Last 24 hours: Intake & Output 04/05/23 04/06/23 04/07/23 04/08/23 23:59 23:59 23:59 23:59 Weight 52.163 kg Constitutional Constitutional: mild distress, cachectic, chronically ill appearing and cooperative *Routine HEENT Exam Head: Present normocephalic and atraumatic Eye: Present EOMI, PERRL and normal accommodation ENT: Present mucous membranes moist *Routine Neck Exam Neck: Present supple, full ROM and trachea midline Routine Chest/Breast/Axilla Exam Comments: pericardial drain tube subxiphoid draining bloody discharge *Routine Respiratory Exam Respiratory: Present rales, diminished air movement, normal respiratory effort, able to speak in complete sentences and symmetric chest movement; Absent respiratory distress *Routine Cardiovascular Exam Cardiovascular: Present Normal S1, Normal S2 and tachycardia *Routine Abdominal Exam Abdominal: Present soft and normoactive bowel sounds; Absent organomegaly *Routine Rectal Exam Rectal:: deferred *Routine Genitalia Exam Genitalia:: deferred *Routine Extremities Exam Extremities: Present full ROM and pulses intact; Absent cyanosis, clubbing or edema *Routine Skin Exam Skin: Present intact, dry and warm *Routine Neurological Exam Neurological: Present alert, oriented X3, normal reflexes, moving all extremities and normal speech Routine Psychiatric Exam Psychiatric: Present normal thought process, cooperative and good judgment Assessment and Plan *Assessment and plan (1) Pericardial effusion with cardiac tamponade: Status: Acute Category: Medical Code(s): I31.39 - Other pericardial effusion (noninflammatory); I31.4 - Cardiac tamponade (2) Shortness of breath: Status: Acute Category: Medical Code(s): R06.02 - Shortness of breath (3) Chronic bilateral pleural effusions: Status: Inactive Category: Medical Code(s): J90 - Pleural effusion, not elsewhere classified (4) Pericardial effusion: Status: Acute Category: Medical Code(s): I31.39 - Other pericardial effusion (noninflammatory) (5) Metastatic adenocarcinoma: Status: Acute Category: Medical Code(s): C79.9 - Secondary malignant neoplasm of unspecified site (6) HTN (hypertension): Status: Acute Qualifiers: Hypertension type: unspecified Qualified Code(s): I10 - Essential (primary) hypertension Category: Medical Code(s): I10 - Essential (primary) hypertension (7) Tobacco dependence syndrome: Status: Acute Category: Medical Code(s): F17.200 - Nicotine dependence, unspecified, uncomplicated Plan 82-year-old female with a PMHx of COPD, right bundle branch block, hypertension, hypothyroidism, and arthritis who is following with cardiology and oncology today. Noted to have shortness of breath. Cardiology performed a limited echo, concern for pericardial effusion with tamponade. Taken to the Clinical Microbiologist for drainage. Discussed case with cardiology, request admission for further management and monitoring of output. Patient may necessitate transfer for pericardial window. Medicine agreed to admit for further management. Problems addressed as follows: -Pericardial effusion with tamponade -Worsened dyspnea associated with chronic bilateral pleural effusion: Patient taken to Clinical Microbiologist, pericardial drain placed. Bloody drainage in bag. Continue to monitor output. Cardiology consulted and assisting with care. Effusion malignant based on cytology studies from pleural effusion drained [address] of chest to evaluate for recollection of pleural effusions, consider pulmonology consult pending size of effusions and need for possible drainage after imaging read. Goal saturation greater 90%, currently on room air, supplemental oxygen as needed DuoNebs scheduled every 6 hours -History of metastatic lung cancer: Initially this did not want to pursue any treatment. Establishing with oncology at [facility], no treatment initiated as of yet. -Hypertension: Continue home losartan and amlodipine -History of tobacco: nicotine patch prn. Anemia: Hemoglobin 9.4, MCV 113. Chronic, stable over the past month. Creatinine 1.2, BUN 21. Appears stable and at baseline. CBC, CMP, magnesium ordered for the morning Holding DVT prophylaxis in the setting of chest tube and bloody pericardial effusion Regular diet Patient is DNR In the past month she has had pleural effusions drained twice. CT of chest personally reviewed, effusions of recollected. This is a poor prognostic indicator for her underlying cancer and clinical condition.
[2023-04-08 18:03] LABS: Basophils % 0.3 % (0.1-2.0); Eosinophils # 0.1 K/mm3 (0.0-0.4); Eosinophils % 0.8 % (0.1-12.0); Hemoglobin 9.4 g/dL (12.2-16.2); Lymphocytes # 0.7 K/mm3 (0.7-4.5); Lymphocytes % 10.5 % (10-50); Mean Corpuscular HGB Conc 32.5 g/dL (31.8-35.4); Mean Corpuscular Hemoglobin 36.9 pg (27.0-31.2); Mean Corpuscular Volume 113.4 fl (81-99); Mean Platelet Volume 8.8 fl (7.4-10.4); Monocytes # 0.4 K/mm3 (0.1-1.0); Monocytes % 6.1 % (1.7-9.3); Neutrophils # 5.8 K/mm3 (1.8-7.8); Neutrophils % 82.3 % (37.0-80.0); Platelet Count 425 K/mm3 (142-424); Red Blood Count 2.56 M/mm3 (4.20-5.40); Red Cell Distribution Width 17.7 % (11.5-17.5); White Blood Count 7.1 K/mm3 (4.8-10.8)
[2023-04-08 18:47] LABS: Chloride 102 mmol/L (98-107)
[2023-04-08 18:48] LABS: Potassium 3.6 mmoL/L (3.5-5.1); Sodium 133 mmol/L (136-145)
[2023-04-08 18:51] LABS: Anion Gap 9.6 mEq/L (5-15); Blood Urea Nitrogen 21 mg/dl (7-17); Calcium 8.1 mg/dl (8.4-10.2); Carbon Dioxide 25 mmol/L (22.0-30.0); Creatinine Clearance Estimated 30 mL/min (50-200); Estimated Glomerular Filt Rate 43 ml/min (>60); GFR (African American) 52 ML/MIN (>60); Glucose 97 mg/dl (74-100)
[2023-04-09] VITALS (10 sets, daily range): BP systolic 114–136; BP diastolic 64–78; PULSE 76–97; RESP 16–18; TEMP 36.5–36.8; O2SAT 90–100; BMI 21.7
[2023-04-09] MEDS: clonazePAM 0.5MG TABLET 0.25 MG PO (00:18)
--- NOTE | 2023-04-09 02:02 | PC.NURSE ---
Patient became very anxious around midnight. She states that she gets herself worked up and when that happens she starts to feel like I'm going to . Motor And Generator Brush Cutter attempted several non-med interventions which were ineffective. Motor And Generator Brush Cutter notified in house PA, new order for Klonopin 0.25mg PO X1. Son is present in room and is staying overnight with patient. Motor And Generator Brush Cutter gave medication to Patient, patient is laying in bed with eyes closed. Medication was effective.
[2023-04-09 06:40] LABS: Basophils % 0.2 % (0.1-2.0); Eosinophils # 0.1 K/mm3 (0.0-0.4); Eosinophils % 1.3 % (0.1-12.0); Hematocrit 31.3 % (37.0-47.0); Hemoglobin 10.1 g/dL (12.2-16.2); Lymphocytes # 0.8 K/mm3 (0.7-4.5); Lymphocytes % 11.5 % (10-50); Mean Corpuscular HGB Conc 32.4 g/dL (31.8-35.4); Mean Corpuscular Hemoglobin 37.1 pg (27.0-31.2); Mean Corpuscular Volume 114.5 fl (81-99); Mean Platelet Volume 9.5 fl (7.4-10.4); Monocytes # 0.4 K/mm3 (0.1-1.0); Monocytes % 5.7 % (1.7-9.3); Neutrophils # 5.5 K/mm3 (1.8-7.8); Neutrophils % 81.3 % (37.0-80.0); Platelet Count 427 K/mm3 (142-424); Red Blood Count 2.73 M/mm3 (4.20-5.40); Red Cell Distribution Width 17.7 % (11.5-17.5); White Blood Count 6.7 K/mm3 (4.8-10.8)
[2023-04-09 06:48] LABS: Alanine Aminotransferase 26 U/L (12-78); Albumin Level 2.8 g/dl (3.5-5.0); Alkaline Phosphatase 76 U/L (38-126); Anion Gap 9.7 mEq/L (5-15); Aspartate Amino Transferase 27 U/L (14-36); Bilirubin,Total 0.4 mg/dl (0.2-1.3); Blood Urea Nitrogen 18 mg/dl (7-17); Calcium 8.1 mg/dl (8.4-10.2); Carbon Dioxide 25 mmol/L (22.0-30.0); Chloride 104 mmol/L (98-107); Creatinine Clearance Estimated 32 mL/min (50-200); Estimated Glomerular Filt Rate 48 ml/min (>60); GFR (African American) 58 ML/MIN (>60); Globulin 2.8 g/dL (1.3-3.2); Glucose 95 mg/dl (74-100); Potassium 3.7 mmoL/L (3.5-5.1); Sodium 135 mmol/L (136-145); Total Protein,Serum 5.6 g/dl (6.3-8.2)
[2023-04-09] MEDS: IPRATROPIUM/ALBUTEROL 3 ML NEB IH (06:50)
--- OUTSIDE RECORDS SUMMARY | 2023-04-09 07:42 | XMS_ITS | Patient Health Record ---
Author Name Unknown Organization [facility] Address [address] [place] [address] Care Team Providers Care Card Game Operator Name Role Phone Akin Luo Primary Care Provider [phone] Akin Luo Unavailable Unavailable ALLERGIES Allergen (clinical [...] Notes Problem Polycythemia vera (D45) Active confirmed 584427635 Problem Generalized anxiety disorder (F41.1) Active confirmed 13102051 Problem Chronic rhinitis (J31.0) Active confirmed 72180994 Problem Mucopurulent chronic bronchitis (J41.1) Active confirmed 28863469 Problem Panlobular emphysema (J43.1) Active confirmed 6029007 Problem Heartburn (R12) Active confirmed 651863 00 Problem Vitamin D deficiency (E55.9) Active confirmed 23985718 Problem GERD without esophagitis (K21.9) Active confirmed Gastroesophagea l reflux disease (874630128) Problem Hypertension, essential (I10) Active confirmed 36438303 Problem Tobacco abuse (Z72.0) Active confirmed 51302515 Problem COPD exacerbation (J44.1) Active confirmed 835823820 Problem Other chronic pain (G89.29) Active confirmed 65666905 Problem Acquired hypothyroidism (E03.9) Active confirmed 731531981 Problem Primary osteoarthritis involving multiple joints (M15.0) Active confirmed 685451198 Problem Inflammation of right sacroiliac joint (M46.1) Active confirmed 70842718796250976 Problem Nocturnal dyspnea (R06.00) Active confirmed 786637277 Problem Anemia due to vitamin B12 deficiency, unspecified B12 deficiency type (D51.9) Active confirmed 08338539 Problem DDD (degenerative disc disease), thoracolumbar (M51.35) Active confirmed 06968223 Problem Chronic constipation (K59.09) Active confirmed 047010753 Problem Lumbar radiculopathy, right (M54.16) Active confirmed 243856253 Problem 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
[2023-04-09] MEDS: LEVOTHYROXINE 75MCG (0.075MG) TAB 75 MCG PO (08:47)
[2023-04-09] MEDS: AMLODIPINE 10MG TABLET 10 MG PO (08:47)
[2023-04-09] MEDS: IRBESARTAN 75MG TABLET 75 MG PO ×2 (08:47→20:09)
--- NOTE | 2023-04-09 09:42 | P.CONS_ITS ---
History of Present Illness History of present illness: Ms. Duarte is a 82-year-old female greater than [id number] smoking history, carries a diagnosis but only using albuterol on as-needed basis history metastatic adenocarcinoma lung for chronic pericardial effusion tobacco abuse was admitted from the cardiology clinic for worsening respiratory send found to having pleural effusion concerning for tamponade. [facility] Disclaimer: The information contained in this section may have been updated after the patient was seen, as this information can be updated by other users. Medical History Abdominal pain Abnormal EKG Arthritis Chest pain Chronic bilateral pleural effusions Dyspnea Falls Fatigue Heart murmur Hip pain, right HTN (hypertension) Left carotid bruit Low back pain Lung cancer Metastatic adenocarcinoma Pericardial effusion Pleural effusion Right bundle branch block Shortness of breath Tobacco dependence syndrome Social History Smoking Status: Former smoker alcohol intake: never current occupational status: employed and disabled Travel in the last 8 weeks: None household members: children housing: house Review of Systems Constitutional Constitutional: Reports anorexia, Reports body ache(s) and Reports fatigue Eyes Eyes: Denies eye discharge, Denies dry eyes, Denies irritation and Denies itchy eyes ENT Ears, Nose, Mouth, and Throat: Denies epistaxis, Denies facial pain, Denies lip swelling and Denies throat swelling *Cardiovascular Cardiovascular: Reports dyspnea, Reports dyspnea on exertion, Denies leg edema and Reports orthopnea *Respiratory Respiratory: Reports chest congestion, Reports cough, Reports dyspnea, Reports dyspnea on exertion, Denies excessive phlegm production and Reports wheezing *Gastrointestinal Gastrointestinal: Denies abdominal pain, Denies belching and Denies cramping *Musculoskeletal Musculoskeletal: Reports back pain, Reports myalgias and Reports other (No small joint swelling or Pain) Psychiatric Psychiatric: Denies homicidal ideation and Denies suicidal ideation Endocrine Endocrine: Reports fatigue and Denies heat intolerance Hematologic/Lymphatic Hematologic/Lymphatic: Denies easy bleeding and Denies lymphadenopathy Allergic/Immunologic Allergic/Immunologic: Denies itchy eyes, Denies lip swelling, Denies throat swelling and Reports wheezing Pulmonology Exam Inpatient Vital signs and Labs for Last 24 Hours: Temp Pulse Resp BP Pulse Ox O2 Del Method O2 Flow Rate 97.9 F 82 18 131/78 99 Nasal Cannula 3 04/09/23 07:39 04/09/23 08:00 04/09/23 07:39 04/09/23 07:39 04/09/23 07:39 04/09/23 07:39 04/09/23 07:39 Laboratory Results - last 24 hr 04/08/23 17:51: WBC 7.1, RBC 2.56 L, Hgb 9.4 L, Hct 29.0 L, MCV 113.4 H, MCH 36.9 H, MCHC 32.5, RDW 17.7 H, Plt Count 425 H, MPV 8.8, Neut % (Auto) 82.3 H, Lymph % (Auto) 10.5, Mclennan % (Auto) 6.1, Eos % (Auto) 0.8, Baso % (Auto) 0.3, Neut # (Auto) 5.8, Lymph # (Auto) 0.7, Mclennan # (Auto) 0.4, Eos # (Auto) 0.1, Baso # (Auto) 0.0, Sodium 133 L, Potassium 3.6, Chloride 102, Carbon Dioxide 25, Anion Gap 9.6, BUN 21 H, Creatinine 1.20 H, Estimated Creat Clear 30, Estimated GFR 43 L, Est GFR ( Amer) 52 L, Glucose 97, Calcium 8.1 L 04/09/23 06:00: WBC 6.7, RBC 2.73 L, Hgb 10.1 L, Hct 31.3 L, MCV 114.5 H, MCH 37.1 H, MCHC 32.4, RDW 17.7 H, Plt Count 427 H, MPV 9.5, Neut % (Auto) 81.3 H, Lymph % (Auto) 11.5, Mclennan % (Auto) 5.7, Eos % (Auto) 1.3, Baso % (Auto) 0.2, Neut # (Auto) 5.5, Lymph # (Auto) 0.8, Mclennan # (Auto) 0.4, Eos # (Auto) 0.1, Baso # (Auto) 0.0, Sodium 135 L, Potassium 3.7, Chloride 104, Carbon Dioxide 25, Anion Gap 9.7, BUN 18 H, Creatinine 1.10 H, Estimated Creat Clear 32, Estimated GFR 48 L, Est GFR ( Amer) 58 L, Glucose 95, Calcium 8.1 L, Magnesium 2.0, Total Bilirubin 0.4, AST 27, ALT 26, Alkaline Phosphatase 76, Total Protein 5.6 L, Albumin 2.8 L, Globulin 2.8, Albumin/Globulin Ratio 1.0 L I & O for Labs for Last 24 Hours: Intake & Output 04/06/23 04/07/23 04/08/23 04/09/23 23:59 23:59 23:59 23:59 Intake Total 360 / 360 Output Total 200 / 600 400 / 400 Balance -200 / -480 -40 / -40 Weight 115 lb 114 lb 15.89 oz Constitutional: Present moderate distress Head: Present normocephalic and atraumatic ENT: Present normal exam, normal oropharynx and mucous membranes moist Neck: Present normal inspection and full ROM Respiratory: Present respiratory distress and able to speak in complete sentences; Absent wheezes Comment:: Decreased breath sounds bilateral lower lung field Cardiac: Present S1/S2, Tachycardia and radial pulses present GI: Present soft and distention; Absent tenderness or guarding Rectal (female): Present deferred (female): Present deferred Skin: Present intact; Absent cyanosis or jaundice Neuro: Present alert, awake and oriented x 3 Extremities: Present normal inspection; Absent clubbing or cyanosis Psychiatric: Present normal affect and cooperative Meds Home Medications and Allergies Home Medications Medication Instructions Recorded Confirmed Type hydroxyurea 500 mg capsule 500 mg PO MOTUWETHFR 09/02/21 04/08/23 History losartan 50 mg tablet 50 mg PO BID High Blood Pressure 09/02/21 04/08/23 History albuterol sulfate 90 mcg/actuation 2 puff inhalation Q4HP PRN 03/29/23 04/08/23 History aerosol inhaler (Ventolin HFA) Shortness Of Breath Or Wheezing levothyroxine 75 mcg tablet 75 mcg PO DAILY Thyroid 03/29/23 04/08/23 History amlodipine 10 mg tablet 10 mg PO DAILY High Blood Pressure 04/08/23 04/08/23 History New Prescriptions to Start Prescriptions: Allergies Allergy/AdvReac Type Severity Reaction Status Date / Time amoxicillin Allergy Intermediate I-RASH Verified 04/08/23 13:56 diphenhydramine Allergy Mild LEG PAIN Verified 04/08/23 13:56 Results Laboratory Findings 04/09/23 06:00 04/09/23 06:00 Abnormal lab findings: Abnormal Labs 04/08/23 04/09/23 17:51 06:00 RBC 2.56 L 2.73 L Hgb 9.4 L 10.1 L Hct 29.0 L 31.3 L MCV 113.4 H 114.5 H MCH 36.9 H 37.1 H RDW 17.7 H 17.7 H Plt Count 425 H 427 H Neut % (Auto) 82.3 H 81.3 H Sodium 133 L 135 L BUN 21 H 18 H Creatinine 1.20 H 1.10 H Estimated GFR 43 L 48 L Est GFR ( Amer) 52 L 58 L Calcium 8.1 L 8.1 L Total Protein 5.6 L Albumin 2.8 L Albumin/Globulin Ratio 1.0 L Assessment and Plan *Assessment and plan (1) Pleural effusion: Status: Acute Category: Medical Code(s): J90 - Pleural effusion, not elsewhere classified (2) Shortness of breath: Status: Acute Category: Medical Code(s): R06.02 - Shortness of breath Plan Ms. Duarte is a 82-year-old female greater than 68-ujgh-rrox smoking history, carries a diagnosis but only using albuterol on as-needed basis history metastatic adenocarcinoma lung for chronic pericardial effusion tobacco abuse was admitted from the cardiology clinic for worsening respiratory send found to having pleural effusion concerning for tamponade. Pericardial fluid cytology from 04/01/2023 positive for malignant adenocarcinoma lung primary. CTA from that admission from 03/29/2023 showed bilateral effusions left greater than right. CT also showed right middle lobe mass and lymphadenopathy. CT on this admission showed stable persistent bilateral effusions left greater than right. Patient examination on room air saturating 90%. Mild respiratory distress. Decreased breath sounds bilateral lower lung valentine. Plan: Plan for left-sided thoracentesis. Initiate Trelegy 100 inhaler DuoNebs every 6 hours on as-needed basis Thank you for involving pulmonary in this patient care. Will continue to follow.
--- NOTE | 2023-04-09 11:00 | US_ITS ---
FINAL REPORT TECHNIQUE: Sonography for thoracentesis. CLINICAL HISTORY: Pleural effusion FINDINGS: Ultrasound guidance was provided by the radiology department to the clinical service. Left thoracentesis was performed by Dr. Mae. Reportedly, approximately 1230 mL of fluid was removed. Please see the report of the performing physician for details. IMPRESSION: Ultrasound guidance provided to the clinical service for thoracentesis. Please see the report of the performing physician for details. Reviewed, Interpreted and Dictated by Yusuf Oliva MD Transcribed by Sandy Borden PA-C Authenticated and [facility]
--- NOTE | 2023-04-09 11:18 | EXP.CARD.CON ---
History of Present Illness History of Present Illness Consult date: 04/09/23 Requesting physician: John Whittaker Consult reason: congestive heart failure Chief complaint: Shortness of breath History of present illness: 82-year-old white female with history of metastatic lung cancer, untreated to this point. She was seen here 2 weeks ago by our service with pericardial effusion causing tamponade. She underwent pericardiocentesis with drain and was discharged home. She was seen yesterday in follow-up in the clinic and states her symptoms had returned. Stat 2D echo revealed she again had pericardial effusion with tamponade so she was transported to the [facility] for pericardiocentesis. I am seeing her again this morning and she has 500 mL of bloody fluid in her drain. Her shortness of breath is improved compared with yesterday. [facility] Disclaimer: The information contained in this section may have been updated after the patient was seen, as this information can be updated by other users. Medical History Abdominal pain Abnormal EKG Arthritis Chest pain Chronic bilateral pleural effusions Dyspnea Falls Fatigue Heart murmur Hip pain, right HTN (hypertension) Left carotid bruit Low back pain Lung cancer Metastatic adenocarcinoma Pericardial effusion Pleural effusion Right bundle branch block Shortness of breath Tobacco dependence syndrome Social History Smoking Status: Former smoker alcohol intake: never current occupational status: employed and disabled Travel in the last 8 weeks: None household members: children housing: house Review of Systems Constitutional Constitutional: Denies fatigue and Denies weakness Eyes Eyes: Denies loss of vision ENT Ears, Nose, Mouth, and Throat: Denies hearing loss and Denies vertigo *Cardiovascular Cardiovascular: Denies chest pain, Reports dyspnea and Denies syncope *Respiratory Respiratory: Denies cough and Reports dyspnea *Gastrointestinal Gastrointestinal: Denies change in stool character, Denies nausea and Denies vomiting *Musculoskeletal Musculoskeletal: Denies muscle weakness Integumentary/Breasts Skin/Breast: Denies changing lesions *Neurologic Neurologic: Denies loss of vision, Denies syncope, Denies vertigo and Denies weakness Endocrine Endocrine: Denies fatigue Exam Data for Last 24 hours Vital signs and Labs for Last 24 Hours: Temp Pulse Resp BP Pulse Ox O2 Del Method O2 Flow Rate 98.3 F 97 H 17 116/69 92 L Room Air 3 04/09/23 11:17 04/09/23 11:17 04/09/23 11:17 04/09/23 11:17 04/09/23 11:17 04/09/23 11:17 04/09/23 07:39 Laboratory Results - last 24 hr 04/08/23 17:51: WBC 7.1, RBC 2.56 L, Hgb 9.4 L, Hct 29.0 L, MCV 113.4 H, MCH 36.9 H, MCHC 32.5, RDW 17.7 H, Plt Count 425 H, MPV 8.8, Neut % (Auto) 82.3 H, Lymph % (Auto) 10.5, [place] % (Auto) 6.1, Eos % (Auto) 0.8, Baso % (Auto) 0.3, Neut # (Auto) 5.8, Lymph # (Auto) 0.7, [place] # (Auto) 0.4, Eos # (Auto) 0.1, Baso # (Auto) 0.0, Sodium 133 L, Potassium 3.6, Chloride 102, Carbon Dioxide 25, Anion Gap 9.6, BUN 21 H, Creatinine 1.20 H, Estimated Creat Clear 30, Estimated GFR 43 L, Est GFR ( Amer) 52 L, Glucose 97, Calcium 8.1 L 04/09/23 06:00: WBC 6.7, RBC 2.73 L, Hgb 10.1 L, Hct 31.3 L, MCV 114.5 H, MCH 37.1 H, MCHC 32.4, RDW 17.7 H, Plt Count 427 H, MPV 9.5, Neut % (Auto) 81.3 H, Lymph % (Auto) 11.5, [place] % (Auto) 5.7, Eos % (Auto) 1.3, Baso % (Auto) 0.2, Neut # (Auto) 5.5, Lymph # (Auto) 0.8, [place] # (Auto) 0.4, Eos # (Auto) 0.1, Baso # (Auto) 0.0, Sodium 135 L, Potassium 3.7, Chloride 104, Carbon Dioxide 25, Anion Gap 9.7, BUN 18 H, Creatinine 1.10 H, Estimated Creat Clear 32, Estimated GFR 48 L, Est GFR ( Amer) 58 L, Glucose 95, Calcium 8.1 L, Magnesium 2.0, Total Bilirubin 0.4, AST 27, ALT 26, Alkaline Phosphatase 76, Total Protein 5.6 L, Albumin 2.8 L, Globulin 2.8, Albumin/Globulin Ratio 1.0 L I & O for Last 24 hours: Intake & Output 04/06/23 04/07/23 04/08/23 04/09/23 23:59 23:59 23:59 23:59 Intake Total 360 / 360 Output Total 200 / 600 400 / 400 Balance -200 / -480 -40 / -40 Weight 115 lb 114 lb 15.89 oz Constitutional Constitutional: no acute distress and cooperative *Routine HEENT Exam Eye: Present PERRL *Routine Respiratory Exam Respiratory: Present CTA bilaterally; Absent accessory muscle use, wheezes or crackles *Routine Cardiovascular Exam Cardiovascular: Present RRR, Normal S1 and Normal S2; Absent murmur, gallop or rubs Comments: Pericardial drain in place, 500 mL bloody fluid in bag *Routine Abdominal Exam Abdominal: Present soft; Absent tenderness *Routine Extremities Exam Extremities: Present pulses intact; Absent cyanosis or edema *Routine Skin Exam Skin: Present intact; Absent erythema or wounds *Routine Neurological Exam Neurological: Present alert and oriented X3 Routine Psychiatric Exam Psychiatric: Present cooperative Meds Home Medications and Allergies Home Medications Medication Instructions Recorded Confirmed Type hydroxyurea 500 mg capsule 500 mg PO MOTUWETHFR 09/02/21 04/08/23 History losartan 50 mg tablet 50 mg PO BID High Blood Pressure 09/02/21 04/08/23 History albuterol sulfate 90 mcg/actuation 2 puff inhalation Q4HP PRN 03/29/23 04/08/23 History aerosol inhaler (Ventolin HFA) Shortness Of Breath Or Wheezing levothyroxine 75 mcg tablet 75 mcg PO DAILY Thyroid 03/29/23 04/08/23 History amlodipine 10 mg tablet 10 mg PO DAILY High Blood Pressure 04/08/23 04/08/23 History New Prescriptions to Start Prescriptions: Allergies Allergy/AdvReac Type Severity Reaction Status Date / Time amoxicillin Allergy Intermediate I-RASH Verified 04/08/23 13:56 diphenhydramine Allergy Mild LEG PAIN Verified 04/08/23 13:56 Assessment and Plan *Assessment and plan (1) Chronic bilateral pleural effusions: Status: Inactive Category: Medical Code(s): J90 - Pleural effusion, not elsewhere classified (2) Pericardial effusion: Status: Acute Category: Medical Code(s): I31.39 - Other pericardial effusion (noninflammatory) (3) Metastatic adenocarcinoma: Status: Acute Category: Medical Code(s): C79.9 - Secondary malignant neoplasm of unspecified site (4) Shortness of breath: Status: Acute Category: Medical Code(s): R06.02 - Shortness of breath (5) HTN (hypertension): Status: Acute Qualifiers: Hypertension type: unspecified Qualified Code(s): I10 - Essential (primary) hypertension Category: Medical Code(s): I10 - Essential (primary) hypertension (6) Right bundle branch block: Status: Inactive Category: Medical Code(s): I45.10 - Unspecified right bundle-branch block (7) Abnormal EKG: Status: Inactive Category: Medical Code(s): R94.31 - Abnormal electrocardiogram [ECG] [EKG] (8) Tobacco dependence syndrome: Status: Acute Category: Medical Code(s): F17.200 - Nicotine dependence, unspecified, uncomplicated Plan Pericardial effusion with tamponade status post pericardiocentesis with pigtail drain remaining in place -secondary to metastatic lung cancer -This is second episode of tamponade due to effusion in the past 2 weeks. She also appears to need another thoracentesis for severe pleural effusion. -Long discussion with patient and in multidisciplinary rounds today. She needs consideration of pericardial window and she also needs staging and plan for her cancer. She may be better candidate for palliative care. Recommend transfer to [facility] for evaluation by [facility] and CT surgery. Tobacco use -Smoking cessation advised
--- NOTE | 2023-04-09 12:28 | P.PCN_ITS ---
[facility] Procedure Note Date: 04/09/23 Time: 12:29 Procedure Note:: Procedure: Left Thoracentesis Referring Physican: Dr. Whittaker Indication for procedure: Pleural Effusion, Hypoxic Respiratory failure A time out was performed, and the chest x-ray was reviewed, the appropriate side was confirmed and marked. My hands were washed immediately prior to the procedure. I wore a surgical cap, mask with protective eyewear, sterile gown, and sterile gloves throughout the procedure. The patient was prepped and draped in a sterile manner using chlorhexidine scrub after the appropriate level was percussed and confirmed by ultrasound. 1% lidocaine was used to anesthetize the skin,?subcutaneous tissue, superior aspect of the rib periosteum and parietal pleura.? A finder needle was then introduced at the seventh intercoastal space posteriorly?to locate the pleural fluid blood-tinged fluid was aspirated. A 10- blade scalpel was used to familia the skin at the insertion site. The Safe-t-Ce ntesis needle was then introduced through the skin incision into the pleural space using negative aspiration pressure and the red colorimetric indicator to confirm appropriate positioning of the needle. The thoracentesis catheter was then threaded without difficulty.? 1230 ml of blood tinged?fluid was removed without difficulty. The catheter was then removed. No immediate complications were noted during the procedure. A post-procedure chest X-ray is pending at the time of this note. The fluid will be sent for routine pleural studies, cultures along with cytopathology.? Patient tolerated the procedure well. No acute immediate complications. Post procedure chest x-ray pending. Estimated blood loss is 2cc.
--- NOTE | 2023-04-09 12:28 | XR_ITS ---
FINAL REPORT CLINICAL HISTORY: effusion COMPARISON: 03/30/2023 FINDINGS: SINGLE-VIEW CHEST The heart size is normal. The mediastinum is normal. Left pigtail chest tube has been retracted. There are persistent linear opacities in the right infrahilar region, probably due to atelectasis. There is no pneumothorax. IMPRESSION: Persistent linear opacities in the right infrahilar region, probably due to atelectasis. Reviewed, Interpreted and Dictated by Yusuf Oliva MD Transcribed by Bria Rob Authenticated and . [facility]
[2023-04-09] MEDS: MORPHINE 2MG/ML SYRINGE 1 MG IV (12:30)
--- NOTE | 2023-04-09 14:05 | DIET.NUTRFU ---
patient indicated upon admit she had a chewing issue. Upon interview she did not want her diet changed, she is on regular diet and she said she will order accordingly. She has been here multiple times and is familiar with menu selection
--- NOTE | 2023-04-09 15:18 | P.PN_ITS ---
Subjective *Date: 04/09/23 *Time: 15:18 Interval history: Patient feeling little better this morning. No shortness of breath or chest pressure. Denies nausea, vomiting, fever. Medical Exam Vital signs and Labs for Last 24 Hours: Vital Signs Temp Pulse Pulse Resp BP BP Pulse Ox 04/09/23 15:14 98.0 F 92 H 18 114/70 91 L 04/09/23 12:00 97 H 04/09/23 13:00 04/09/23 11:00 04/09/23 09:00 04/09/23 11:17 98.3 F 97 H 17 116/69 92 L 04/09/23 08:00 90 L 04/09/23 08:00 82 04/09/23 04:00 93 H 04/09/23 07:39 97.9 F 93 H 18 131/78 99 04/09/23 06:55 76 04/09/23 06:55 77 04/09/23 06:55 99 04/09/23 04:00 97.9 F 87 16 118/67 100 04/08/23 23:30 97.6 F 93 H 18 125/69 04/08/23 22:30 97.6 F 90 18 104/64 L 04/09/23 01:00 04/08/23 22:30 97.6 F 93 H 18 104/64 L 04/08/23 21:30 97.6 F 90 18 117/50 L 100 04/09/23 00:00 97.7 F 94 H 16 136/72 99 04/09/23 00:00 94 H 04/08/23 20:20 117 H 04/08/23 23:00 04/08/23 21:00 04/08/23 20:00 100 04/08/23 20:13 97.8 F 99 H 18 129/67 99 04/08/23 19:30 97.9 F 97 H 18 112/68 100 04/08/23 19:00 101 H 20 139/78 98 04/08/23 18:36 04/08/23 18:30 97.7 F 99 H 20 154/96 H 94 L 04/08/23 17:55 86 20 127/65 94 L 04/08/23 17:30 86 20 135/67 93 L 04/08/23 17:15 83 16 129/70 95 04/08/23 17:00 83 16 133/63 100 04/08/23 16:45 97.6 F 83 16 109/63 L 94 L 04/08/23 17:14 04/08/23 16:20 85 12 108/61 L 96 04/08/23 16:10 85 18 101/60 L 95 04/08/23 15:53 97 F L 85 26 H 120/60 92 L 04/08/23 15:53 84 O2 Del Method O2 Flow Rate 04/09/23 15:14 Room Air 04/09/23 12:00 04/09/23 13:00 Nasal Cannula 2 04/09/23 11:00 Nasal Cannula 2 04/09/23 09:00 Room Air 04/09/23 11:17 Room Air 04/09/23 08:00 Room Air 04/09/23 08:00 04/09/23 04:00 04/09/23 07:39 Nasal Cannula 3 04/09/23 06:55 04/09/23 06:55 04/09/23 06:55 Nasal Cannula 3 04/09/23 04:00 Nasal Cannula 3 04/08/23 23:30 Nasal Cannula 2 04/08/23 22:30 Nasal Cannula 2 04/09/23 01:00 Room Air 04/08/23 22:30 Nasal Cannula 2 04/08/23 21:30 Nasal Cannula 2 04/09/23 00:00 Room Air 04/09/23 00:00 04/08/23 20:20 04/08/23 23:00 Room Air 04/08/23 21:00 Room Air 04/08/23 20:00 Nasal Cannula 2 04/08/23 20:13 Nasal Cannula 2 04/08/23 19:30 Nasal Cannula 2 04/08/23 19:00 Nasal Cannula 2 04/08/23 18:36 Room Air 04/08/23 18:30 Room Air 04/08/23 17:55 Room Air 04/08/23 17:30 Room Air 04/08/23 17:15 Room Air 04/08/23 17:00 Nasal Cannula 2 04/08/23 16:45 Nasal Cannula 2 04/08/23 17:14 Room Air 96 04/08/23 16:20 04/08/23 16:10 Nasal Cannula 3 04/08/23 15:53 Room Air 04/08/23 15:53 Intake and Output 04/08/23 04/09/23 04/09/23 23:59 07:59 15:59 Intake Total 360 / 480 120 / 480 Output Total 200 / 600 400 / 525 125 / 525 Balance -200 / -480 -40 / -45 -5 / -45 Intake: Intake, Oral Amount 360 / 480 120 / 480 Output: Output, Urine Amount 200 / 600 400 / 400 0 / 400 Output, Chest Tube Drainage 125 / 125 Amount Mediastinal 125 / 125 Other: Number of Voids 1 Number of Unmeasured Voids 0 0 1 Number of Bowel Movements 1 Weight 52.163 kg 52.16 kg Patient Weight 04/09/23 23:59 Weight 52.16 kg Laboratory Results - last 24 hr 04/08/23 17:51: WBC 7.1, RBC 2.56 L, Hgb 9.4 L, Hct 29.0 L, MCV 113.4 H, MCH 36.9 H, MCHC 32.5, RDW 17.7 H, Plt Count 425 H, MPV 8.8, Neut % (Auto) 82.3 H, Lymph % (Auto) 10.5, [place] % (Auto) 6.1, Eos % (Auto) 0.8, Baso % (Auto) 0.3, Neut # (Auto) 5.8, Lymph # (Auto) 0.7, [place] # (Auto) 0.4, Eos # (Auto) 0.1, Baso # (Auto) 0.0, Sodium 133 L, Potassium 3.6, Chloride 102, Carbon Dioxide 25, Anion Gap 9.6, BUN 21 H, Creatinine 1.20 H, Estimated Creat Clear 30, Estimated GFR 43 L, Est GFR ( Amer) 52 L, Glucose 97, Calcium 8.1 L 04/09/23 06:00: WBC 6.7, RBC 2.73 L, Hgb 10.1 L, Hct 31.3 L, MCV 114.5 H, MCH 37.1 H, MCHC 32.4, RDW 17.7 H, Plt Count 427 H, MPV 9.5, Neut % (Auto) 81.3 H, Lymph % (Auto) 11.5, [place] % (Auto) 5.7, Eos % (Auto) 1.3, Baso % (Auto) 0.2, Neut # (Auto) 5.5, Lymph # (Auto) 0.8, [place] # (Auto) 0.4, Eos # (Auto) 0.1, Baso # (Auto) 0.0, Sodium 135 L, Potassium 3.7, Chloride 104, Carbon Dioxide 25, Anion Gap 9.7, BUN 18 H, Creatinine 1.10 H, Estimated Creat Clear 32, Estimated GFR 48 L, Est GFR ( Amer) 58 L, Glucose 95, Calcium 8.1 L, Magnesium 2.0, Total Bilirubin 0.4, AST 27, ALT 26, Alkaline Phosphatase 76, Total Protein 5.6 L, Albumin 2.8 L, Globulin 2.8, Albumin/Globulin Ratio 1.0 L I & O for Labs for Last 24 Hours: Intake & Output 04/06/23 04/07/23 04/08/23 04/09/23 23:59 23:59 23:59 23:59 Intake Total 480 / 480 Output Total 200 / 600 525 / 525 Balance -200 / -480 -45 / -45 Weight 52.163 kg 52.16 kg Constitutional: Present no acute distress, thin, chronically ill appearing and cooperative Head: Present atraumatic and normocephalic ENT: Present normal exam Neck: Present normal inspection Respiratory: Present crackles, diminished air movement and normal respiratory effort; Absent rhonchi or wheezes Cardiac: Present Reg Rate and Rhythm Comment:: pericardial drain in place subxiphoid GI: Present soft and normal bowel sounds; Absent distention or tenderness Extremities: Present normal inspection and full ROM Skin: Present intact; Absent erythema Neuro: Present Grossly Intact, alert, awake, oriented x 3 and moves all extremities Assessment and Plan *Assessment and plan (1) Pericardial effusion with cardiac tamponade: Status: Acute Category: Medical Code(s): I31.39 - Other pericardial effusion (noninflammatory); I31.4 - Cardiac tamponade (2) Shortness of breath: Status: Acute Category: Medical Code(s): R06.02 - Shortness of breath (3) Chronic bilateral pleural effusions: Status: Inactive Category: Medical Code(s): J90 - Pleural effusion, not elsewhere classified (4) Pericardial effusion: Status: Acute Category: Medical Code(s): I31.39 - Other pericardial effusion (noninflammatory) (5) Metastatic adenocarcinoma: Status: Acute Category: Medical Code(s): C79.9 - Secondary malignant neoplasm of unspecified site (6) HTN (hypertension): Status: Acute Qualifiers: Hypertension type: unspecified Qualified Code(s): I10 - Essential (primary) hypertension Category: Medical Code(s): I10 - Essential (primary) hypertension (7) Tobacco dependence syndrome: Status: Acute Category: Medical Code(s): F17.200 - Nicotine dependence, unspecified, uncomplicated Plan 82-year-old female with a PMHx of COPD, right bundle branch block, hypertension, hypothyroidism, and arthritis who is following with cardiology and oncology today. Noted to have shortness of breath. Cardiology performed a limited echo, concern for pericardial effusion with tamponade. Taken to the [facility] for drainage. Discussed case with cardiology, request admission for further management and monitoring of output. Patient may necessitate transfer for pericardial window. Medicine agreed to admit for further management. Continues to require inpatient management. Still having drainage in bag from pericardial tube. Pulmonology and cardiology assisting with care. Problems addressed as follows: -Pericardial effusion with tamponade -Worsened dyspnea associated with chronic bilateral pleural effusion: Patient taken to [facility], pericardial drain placed. Serosanguineous drainage i n bag. Continue to monitor output. Cardiology consulted and assisting with care. Effusion malignant based on cytology studies from pericardiocentesis [address] of chest with large left pleural effusion, pulmonology consulted and thoracentesis performed today. Removed 1.25 L serosanguineous fluid Will discuss case with for possible transfer for pericardial window as this is her third pericardiocentesis in less than a month. Goal saturation greater 90%, currently on room air, supplemental oxygen as needed DuoNebs scheduled every 6 hours Initiate Trelegy 100 inhaler -History of metastatic lung cancer: Initially did not want to pursue any treatment. Establishing with oncology at [facility], no treatment initiated as of yet. Would not be a candidate for chemotherapy but potentially candidate for immuno or targeted therapy. -Hypertension: Continue home losartan and amlodipine -History of tobacco: nicotine patch prn. Anemia: Hemoglobin 10, platelets 427, MCV 113. Chronic, stable over the past month. Creatinine 1.1, BUN 18, Appears stable and at baseline. CBC, CMP, magnesium ordered for the morning Holding DVT prophylaxis in the setting of chest tube and bloody pericardial effusion Regular diet Patient is DNR.
--- NOTE | 2023-04-09 18:50 | PC.NURSE ---
AOX4, THORACENTESIS PERFORMED THIS SHIFT. MODERATE PAIN FOLLOWING PROCEDURE ALLEVIATED BY 1 MG MORPHINE. PATIENT DID C/O SOB AFTER PROCEDURE; O2 SUPPORT RESUMED AT 2LNC FOR ABOUT 2 HOURS BUT SHE HAS TOLERATED ROOM AIR WELL SINCE THEN. PERICARDIAL DRAIN REMAINS IN PLACE WITH SEROSANGUINEOUS DRAINAGE IN DRAINAGE BAG.
[2023-04-10] VITALS: BP 124/61; PULSE 94; RESP 18; TEMP 37.1; O2SAT 93
--- NOTE | 2023-04-10 01:29 | PC.NURSE ---
0129 called for update - will call back in AM to reassess
[2023-04-10 04:00] VITALS: BP 127/77; PULSE 94; RESP 18; TEMP 36.9; O2SAT 98; BMI 21.7
--- NOTE | 2023-04-10 04:23 | PC.NURSE ---
report received from [facility] at this time.
[2023-04-10] MEDS: LEVOTHYROXINE 75MCG (0.075MG) TAB 75 MCG PO (06:22)
[2023-04-10] MEDS: FLUTICASONE/UMECLIDIN/VILANTER 100/62.5/25MCG INHALER 1 PUFF IH (06:46)
[2023-04-10 06:47] VITALS: O2SAT 96
[2023-04-10 06:52] LABS: Basophils % 0.1 % (0.1-2.0); Eosinophils # 0.1 K/mm3 (0.0-0.4); Eosinophils % 1.4 % (0.1-12.0); Hemoglobin 10.3 g/dL (12.2-16.2); Lymphocytes % 15.6 % (10-50); Mean Corpuscular HGB Conc 32.1 g/dL (31.8-35.4); Mean Corpuscular Hemoglobin 36.8 pg (27.0-31.2); Mean Corpuscular Volume 114.8 fl (81-99); Mean Platelet Volume 8.9 fl (7.4-10.4); Monocytes # 0.4 K/mm3 (0.1-1.0); Monocytes % 6.2 % (1.7-9.3); Neutrophils # 4.8 K/mm3 (1.8-7.8); Neutrophils % 76.6 % (37.0-80.0); Platelet Count 427 K/mm3 (142-424); Red Blood Count 2.78 M/mm3 (4.20-5.40); Red Cell Distribution Width 17.8 % (11.5-17.5); White Blood Count 6.2 K/mm3 (4.8-10.8)
[2023-04-10 07:02] LABS: Alanine Aminotransferase 21 U/L (12-78); Albumin Level 2.6 g/dl (3.5-5.0); Albumin/Globulin Ratio 0.9 (1.1-1.8); Alkaline Phosphatase 73 U/L (38-126); Anion Gap 6.8 mEq/L (5-15); Aspartate Amino Transferase 20 U/L (14-36); Bilirubin,Total 0.4 mg/dl (0.2-1.3); Blood Urea Nitrogen 18 mg/dl (7-17); Carbon Dioxide 26 mmol/L (22.0-30.0); Chloride 106 mmol/L (98-107); Creatinine Clearance Estimated 32 mL/min (50-200); Estimated Glomerular Filt Rate 48 ml/min (>60); GFR (African American) 58 ML/MIN (>60); Globulin 2.8 g/dL (1.3-3.2); Glucose 98 mg/dl (74-100); Magnesium 2.1 mg/dl (1.6-2.3); Potassium 3.8 mmoL/L (3.5-5.1); Sodium 135 mmol/L (136-145); Total Protein,Serum 5.4 g/dl (6.3-8.2)
--- NOTE | 2023-04-10 07:14 | PC.NURSE ---
150ml blood tinged fluid drained from pericardial drain.
[2023-04-10 08:00] VITALS: BP 120/67; PULSE 92; RESP 19; TEMP 36.6; O2SAT 96
[2023-04-10] MEDS: IRBESARTAN 75MG TABLET 75 MG PO (08:27)
[2023-04-10] MEDS: AMLODIPINE 10MG TABLET 10 MG PO (08:27)
--- NOTE | 2023-04-10 09:37 | EXP.ACUTE.PN ---
Subjective *Date: 04/10/23 *Time: 09:37 Interval history: Patient weak this morning. Afebrile and on room air. Denies chest pain. Tolerating p.o. intake. Bowel movement yesterday. Medical Exam Vital signs and Labs for Last 24 Hours: Vital Signs Temp Pulse Pulse Resp BP Pulse Ox O2 Del Method 04/10/23 08:00 98 F 92 H 19 120/67 96 Nasal Cannula 04/10/23 06:47 96 Room Air 04/10/23 06:50 Room Air 04/10/23 04:00 98.4 F 94 H 18 127/77 98 Nasal Cannula 04/10/23 05:00 Nasal Cannula 04/10/23 00:00 98.8 F 94 H 18 124/61 93 L Room Air 04/10/23 03:00 Room Air 04/10/23 01:00 Room Air 04/09/23 23:00 Room Air 04/09/23 21:00 Room Air 04/09/23 20:00 Room Air 04/09/23 20:00 98.1 F 97 H 18 117/64 96 Room Air 04/09/23 19:00 Room Air 04/09/23 16:00 97 H 04/09/23 16:54 Room Air 04/09/23 15:00 Room Air 04/09/23 15:14 98.0 F 92 H 18 114/70 91 L Room Air 04/09/23 12:00 97 H 04/09/23 13:00 Nasal Cannula 04/09/23 11:00 Nasal Cannula 04/09/23 11:17 98.3 F 97 H 17 116/69 92 L Room Air O2 Flow Rate 04/10/23 08:00 04/10/23 06:47 04/10/23 06:50 04/10/23 04:00 2 04/10/23 05:00 2 04/10/23 00:00 04/10/23 03:00 04/10/23 01:00 04/09/23 23:00 04/09/23 21:00 04/09/23 20:00 04/09/23 20:00 04/09/23 19:00 04/09/23 16:00 04/09/23 16:54 04/09/23 15:00 04/09/23 15:14 04/09/23 12:00 04/09/23 13:00 2 04/09/23 11:00 2 04/09/23 11:17 Intake and Output 04/09/23 04/10/23 04/10/23 23:59 07:59 15:59 Intake Total 240 / 960 240 / 510 270 / 510 Output Total 200 / 725 0 / 0 Balance 40 / 235 240 / 510 270 / 510 Intake: Intake, Oral Amount 240 / 960 240 / 510 270 / 510 Output: Output, Urine Amount 200 / 600 0 / 0 Other: Number of Voids 0 Number of Unmeasured Voids 1 Weight 52.16 kg Patient Weight 04/10/23 23:59 Weight 52.16 kg Laboratory Results - last 24 hr 04/10/23 06:16: WBC 6.2, RBC 2.78 L, Hgb 10.3 L, Hct 32.0 L, MCV 114.8 H, MCH 36.8 H, MCHC 32.1, RDW 17.8 H, Plt Count 427 H, MPV 8.9, Neut % (Auto) 76.6, Lymph % (Auto) 15.6, [place] % (Auto) 6.2, Eos % (Auto) 1.4, Baso % (Auto) 0.1, Neut # (Auto) 4.8, Lymph # (Auto) 1.0, [place] # (Auto) 0.4, Eos # (Auto) 0.1, Baso # (Auto) 0.0, Sodium 135 L, Potassium 3.8, Chloride 106, Carbon Dioxide 26, Anion Gap 6.8, BUN 18 H, Creatinine 1.10 H, Estimated Creat Clear 32, Estimated GFR 48 L, Est GFR ( Amer) 58 L, Glucose 98, Calcium 8.0 L, Magnesium 2.1, Total Bilirubin 0.4, AST 20 D, ALT 21, Alkaline Phosphatase 73, Total Protein 5.4 L, Albumin 2.6 L, Globulin 2.8, Albumin/Globulin Ratio 0.9 L I & O for Labs for Last 24 Hours: Intake & Output 04/07/23 04/08/23 04/09/23 04/10/23 23:59 23:59 23:59 23:59 Intake Total 720 / 960 510 / 510 Output Total 200 / 600 725 / 725 0 / 0 Balance -200 / -480 -5 / 235 510 / 510 Weight 52.163 kg 52.16 kg 52.16 kg Constitutional: Present no acute distress, thin, chronically ill appearing and cooperative Head: Present atraumatic and normocephalic ENT: Present normal exam Neck: Present normal inspection Respiratory: Present crackles, diminished air movement and normal respiratory effort; Absent rhonchi or wheezes Cardiac: Present Reg Rate and Rhythm Comment:: pericardial drain in place subxiphoid GI: Present soft and normal bowel sounds; Absent distention or tenderness Extremities: Present normal inspection and full ROM Skin: Present intact; Absent erythema Neuro: Present Grossly Intact, alert, awake, oriented x 3 and moves all extremities Assessment and Plan *Assessment and plan (1) Pericardial effusion with cardiac tamponade: Status: Acute Category: Medical Code(s): I31.39 - Other pericardial effusion (noninflammatory); I31.4 - Cardiac tamponade (2) Shortness of breath: Status: Acute Category: Medical Code(s): R06.02 - Shortness of breath (3) Chronic bilateral pleural effusions: Status: Inactive Category: Medical Code(s): J90 - Pleural effusion, not elsewhere classified (4) Pericardial effusion: Status: Acute Category: Medical Code(s): I31.39 - Other pericardial effusion (noninflammatory) (5) Metastatic adenocarcinoma: Status: Acute Category: Medical Code(s): C79.9 - Secondary malignant neoplasm of unspecified site (6) HTN (hypertension): Status: Acute Qualifiers: Hypertension type: unspecified Qualified Code(s): I10 - Essential (primary) hypertension Category: Medical Code(s): I10 - Essential (primary) hypertension (7) Tobacco dependence syndrome: Status: Acute Category: Medical Code(s): F17.200 - Nicotine dependence, unspecified, uncomplicated Plan 82-year-old female with a PMHx of COPD, right bundle branch block, hypertension, hypothyroidism, and arthritis who is following with cardiology and oncology today. Noted to have shortness of breath. Cardiology performed a limited echo, concern for pericardial effusion with tamponade. Taken to the [facility] for drainage. Discussed case with cardiology, request admission for further management and monitoring of output. Patient may necessitate transfer for pericardial window. Medicine agreed to admit for further management. Continues to require inpatient management. Still having drainage in bag from pericardial tube. Pulmonology and cardiology assisting with care. Patient awaiting transfer to for higher level of care and discussion about possible pericardial window. Problems addressed as follows: -Pericardial effusion with tamponade -Worsened dyspnea associated with chronic bilateral pleural effusion: Patient taken to [facility], pericardial drain placed 04/08. Serosanguineous drainage in bag. 150 cc of serosanguineous output in the past 24 hours. Cardiology consulted and assisting with care. Effusion malignant based on cytology studies from pericardiocentesis 03/29. pulmonology consulted and thoracentesis performed 04/09. Removed 1.25 L serosanguineous fluid Case discussed with , patient on wait list for transfer for pericardial window as this is her third pericardiocentesis in less than a month. Goal saturation greater 90%, currently on room air, supplemental oxygen as needed DuoNebs scheduled every 6 hours Trelegy 100 inhaler White cell count 6, no indication for antibiotics at this time -History of metastatic lung cancer: Initially did not want to pursue any treatment. Establishing with oncology at [facility], no treatment initiated as of yet. Would not be a candidate for chemotherapy but potentially candidate for immuno or targeted therapy. -Hypertension: Continue home losartan and amlodipine -History of tobacco: nicotine patch prn. Anemia: Hemoglobin 10, platelets 427, MCV 113. Chronic, stable over the past month. Creatinine 1.1, BUN 18, Appears stable and at baseline. CBC, CMP, magnesium ordered for the morning Holding DVT prophylaxis in the setting of chest tube and bloody pericardial effusion Regular diet Patient is DNR.
[2023-04-10 12:00] VITALS: BP 119/75; PULSE 95; RESP 19; TEMP 36.8; O2SAT 97
--- NOTE | 2023-04-10 14:57 | P.DS_ITS ---
General Admission date:: 04/08/23 Discharge date: 04/09/23 HPI HPI HPI: Ms. Duarte is an 82-year-old female with metastatic adenocarcinoma of the lung, pericardial and pleural effusion, tobacco dependence, was seen in cardiology and oncology clinics today for follow-up. While in cardiology clinic was complaining of shortness of breath. Echo obtained showing recollection of pericardial effusion and concern for tamponade. Patient taken emergently to the [facility] for pericardial drain. Discussed case with cardiology, request admission for further management. Last admission, pleural effusion was drained confirming malignant effusion. Appears to have had recurrence of effusions. Has not been on any treatment as of yet for her lung cancer. Hydration after admission, patient is still somewhat fatigued from her pericardiocentesis. Draining bloody fluid from pericardial drain. Has some improvement in her shortness of breath. Denies fever, nausea, vomiting, chest pain. Complains of fatigue. Hospital Course Hospital Course Hospital Course: 82-year-old female with a PMHx of COPD, right bundle branch block, hypertension, hypothyroidism, and arthritis who is following with cardiology and oncology today. Noted to have shortness of breath. Cardiology performed a limited echo, concern for pericardial effusion with tamponade. Taken to the [facility] for drainage. Discussed case with cardiology, request admission for further management and monitoring of output. Patient may necessitate transfer for pericardial window. Medicine agreed to admit for further management. Continues to require inpatient management. Still having drainage in bag from pericardial tube. Pulmonology and cardiology assisting with care. Problems addressed as follows: -Pericardial effusion with tamponade -Worsened dyspnea associated with chronic bilateral pleural effusion: Patient taken to [facility], pericardial drain placed. Serosanguineous drainage in bag. Continue to monitor output. Cardiology consulted and assisting with care. Effusion malignant based on cytology studies from pericardiocentesis [address] of chest with large left pleural effusion, pulmonology consulted and thoracentesis performed today. Removed 1.25 L serosanguineous fluid. Contacted [facility] to discuss potential for transfer for pericardial window given this is continued recollection and her third pericardiocentesis in less than a month. Patient accepted for transfer. Maintain goal saturation greater 90% on room air. Continue DuoNebs every 6 hours and initiated on Trelegy 100 daily. -History of metastatic lung cancer: Initially did not want to pursue any treatment. Establishing with oncology at [facility], no treatment initiated as of yet. Would not be a candidate for chemotherapy but potentially candidate for immuno or targeted therapy. -Hypertension: Continue home losartan and amlodipine -History of tobacco: nicotine patch prn. Anemia: Hemoglobin 10, platelets 427, MCV 113. Chronic, stable over the past month. Creatinine 1.1, BUN 18, Appears stable and at baseline. CBC, CMP, magnesium ordered for the morning Patient accepted for transfer and further management. Appreciate 's assistance. Exam Data for Last 24 hours Vital signs and Labs for Last 24 Hours: Temp Pulse Resp BP Pulse Ox O2 Del Method O2 Flow Rate 98.0 F 97 H 18 114/70 91 L Room Air 2 04/09/23 15:14 04/09/23 16:00 04/09/23 15:14 04/09/23 15:14 04/09/23 15:14 04/09/23 16:54 04/09/23 13:00 Laboratory Results - last 24 hr 04/08/23 17:51: Sodium 133 L, Potassium 3.6, Chloride 102, Carbon Dioxide 25, Anion Gap 9.6, BUN 21 H, Creatinine 1.20 H, Estimated Creat Clear 30, Estimated GFR 43 L, Est GFR ( Amer) 52 L, Glucose 97, Calcium 8.1 L 04/09/23 06:00: WBC 6.7, RBC 2.73 L, Hgb 10.1 L, Hct 31.3 L, MCV 114.5 H, MCH 37.1 H, MCHC 32.4, RDW 17.7 H, Plt Count 427 H, MPV 9.5, Neut % (Auto) 81.3 H, Lymph % (Auto) 11.5, [place] % (Auto) 5.7, Eos % (Auto) 1.3, Baso % (Auto) 0.2, Neut # (Auto) 5.5, Lymph # (Auto) 0.8, [place] # (Auto) 0.4, Eos # (Auto) 0.1, Baso # (Auto) 0.0, Sodium 135 L, Potassium 3.7, Chloride 104, Carbon Dioxide 25, An ion Gap 9.7, BUN 18 H, Creatinine 1.10 H, Estimated Creat Clear 32, Estimated GFR 48 L, Est GFR ( Amer) 58 L, Glucose 95, Calcium 8.1 L, Magnesium 2.0, Total Bilirubin 0.4, AST 27, ALT 26, Alkaline Phosphatase 76, Total Protein 5.6 L, Albumin 2.8 L, Globulin 2.8, Albumin/Globulin Ratio 1.0 L I & O for Last 24 hours: Intake & Output 04/06/23 04/07/23 04/08/23 04/09/23 23:59 23:59 23:59 23:59 Intake Total 720 / 720 Output Total 200 / 600 525 / 525 Balance -200 / -480 195 / 195 Weight 52.163 kg 52.16 kg Constitutional Constitutional: no acute distress, thin, chronically ill appearing and cooperative *Routine HEENT Exam Head: Present normocephalic and atraumatic Eye: Present PERRL ENT: Present mucous membranes moist *Routine Neck Exam Neck: Present supple Routine Chest/Breast/Axilla Exam Comments: Pericardial drain in place subxiphoid, serosanguineous fluid in bag *Routine Respiratory Exam Respiratory: Present crackles and diminished air movement; Absent accessory muscle use, rhonchi or wheezes Comments: Adventitious sounds left lung field *Routine Cardiovascular Exam Cardiovascular: Present RRR, Normal S1 and Normal S2; Absent murmur, gallop or rubs *Routine Abdominal Exam Abdominal: Present soft; Absent tenderness *Routine Rectal Exam Patient deferred: visual exam *Routine Exam Patient deferred: external exam *Routine Extremities Exam Extremities: Present pulses intact; Absent cyanosis or edema *Routine Skin Exam Skin: Present intact; Absent erythema or wounds *Routine Neurological Exam Neurological: Present alert, oriented X3 and moving all extremities Routine Psychiatric Exam Psychiatric: Present cooperative Results Data Completed and Pending Labs on day of discharge: Labs from last 24 hours 04/09/23 04/08/23 06:00 17:51 WBC 6.7 RBC 2.73 L Hgb 10.1 L Hct 31.3 L MCV 114.5 H MCH 37.1 H MCHC 32.4 RDW 17.7 H Plt Count 427 H MPV 9.5 Neut % (Auto) 81.3 H Lymph % (Auto) 11.5 [place] % (Auto) 5.7 Eos % (Auto) 1.3 Baso % (Auto) 0.2 Neut # (Auto) 5.5 Lymph # (Auto) 0.8 [place] # (Auto) 0.4 Eos # (Auto) 0.1 Baso # (Auto) 0.0 Sodium 135 L 133 L Potassium 3.7 3.6 Chloride 104 102 Carbon Dioxide 25 25 Anion Gap 9.7 9.6 BUN 18 H 21 H Creatinine 1.10 H 1.20 H Estimated Creat Clear 32 30 Estimated GFR 48 L 43 L Est GFR ( Amer) 58 L 52 L Glucose 95 97 Calcium 8.1 L 8.1 L Magnesium 2.0 Total Bilirubin 0.4 AST 27 ALT 26 Alkaline Phosphatase 76 Total Protein 5.6 L Albumin 2.8 L Globulin 2.8 Albumin/Globulin Ratio 1.0 L DS: Diagnosis Discharge Diagnosis (1) Pericardial effusion with cardiac tamponade: Status: Acute Code(s): I31.39 - Other pericardial effusion (noninflammatory); I31.4 - Cardiac tamponade (2) Shortness of breath: Status: Acute Code(s): R06.02 - Shortness of breath (3) Chronic bilateral pleural effusions: Status: Inactive Code(s): J90 - Pleural effusion, not elsewhere classified (4) Pericardial effusion: Status: Acute Code(s): I31.39 - Other pericardial effusion (noninflammatory) (5) Metastatic adenocarcinoma: Status: Acute Code(s): C79.9 - Secondary malignant neoplasm of unspecified site (6) HTN (hypertension): Status: Acute Code(s): I10 - Essential (primary) hypertension Qualifiers: Hypertension type: unspecified Qualified Code(s): I10 - Essential (primary) hypertension (7) Tobacco dependence syndrome: Status: Acute Code(s): F17.200 - Nicotine dependence, unspecified, uncomplicated Meds Home Medications and Allergies Home Medications Medication Instructions Recorded Confirmed Type hydroxyurea 500 mg capsule 500 mg PO MOTUWETHFR 09/02/21 04/08/23 History losartan 50 mg tablet 50 mg PO BID High Blood Pressure 09/02/21 04/08/23 History albuterol sulfate 90 mcg/actuation 2 puff inhalation Q4HP PRN 03/29/23 04/08/23 History aerosol inhaler (Ventolin HFA) Shortness Of Breath Or Wheezing levothyroxine 75 mcg tablet 75 mcg PO DAILY Thyroid 03/29/23 04/08/23 History amlodipine 10 mg tablet 10 mg PO DAILY High Blood Pressure 04/08/23 04/08/23 History clonazepam 0.5 mg tablet 0.25 mg PO BIDP PRN Anxiety #0 tabs 04/09/23 Rx fluticasone fur. 100 mcg-umeclid 1 inh inhalation DAILY #0 ea 04/09/23 Rx 62.5 mcg-vilant 25 mcg inhalat.powder (Trelegy Ellipta) hydrocodone 5 mg-acetaminophen 325 1 tab PO Q6HP PRN Mild To Moderate 04/09/23 Rx mg tablet Pain (1-6) #0 tabs ipratropium 0.5 mg-albuterol 3 mg 3 ml inhalation Q6RT #0 mL 04/09/23 Rx (2.5 mg base)/3 mL nebulization soln nicotine 21 mg/24 hr daily 21 mg transdermal DAILYP PRN 04/09/23 Rx transdermal patch Nicotine Cravings #0 ea New Prescriptions to Start Prescriptions: Allergies Allergy/AdvReac Type Severity Reaction Status Date / Time amoxicillin Allergy Intermediate I-RASH Verified 04/08/23 13:56 diphenhydramine Allergy Mild LEG PAIN Verified 04/08/23 13:56 Discharge Plan Disposition Patient Disposition: Xfer Short-Term Hosp Condition: Fair Follow up Plan Follow up with: Brayan Mae MD [Physician] - 04/15/23 1:00 pm Prescriptions/Medication Reconciliation: New ipratropium-albuterol 0.5 mg-3 mg(2.5 mg base)/3 mL Solution For Nebulization 3 ml inhalation Q6RT Qty: 0 0RF hydrocodone-acetaminophen 5-325 mg Tablet 1 tab PO Q6HP PRN (Reason: Mild To Moderate Pain (1-6)) Qty: 0 0RF clonazepam 0.5 mg Tablet 0.25 mg PO BIDP PRN (Reason: Anxiety) Qty: 0 0RF nicotine 21 mg/24 hr Patch 24 Hour 21 mg transdermal DAILYP PRN (Reason: Nicotine Cravings) Qty: 0 0RF Trelegy Ellipta 100-62.5-25 mcg Blister With Device 1 inh inhalation DAILY Qty: 0 0RF Continued hydroxyurea 500 mg capsule 500 mg PO MOTUWETHFR losartan 50 mg tablet 50 mg PO BID amlodipine 10 mg tablet 10 mg PO DAILY Patient Comments: TAKE 1 TABLET BY MOUTH EVERY DAY levothyroxine 75 mcg tablet 75 mcg PO DAILY albuterol sulfate [Ventolin HFA] 90 mcg/actuation HFA aerosol inhaler 2 puff INHALATION Q4HP PRN (Reason: Shortness Of Breath Or Wheezing) Problem Reconciliation Problems Reviewed?: Yes Patient Discharge Instructions ACTIVITY: Continue current activity DIET: continue same diet Providers Primary Care Provider: Provider,Referral Admit Provider: John Whittaker Attending Provider: John Whittaker
== END 2023-04-10 15:40 | disposition short-term general hospital (02) | DRG 314 ==
LOC: 2ND 17:40
PROVIDERS: Internal Medicine; Admitting Provider Internal Medicine Adolescent Medicine; Visit Provider Internal Medicine Adolescent Medicine
DX: I31.39 Other pericardial effusion (noninflammatory) (principal); J96.91 Respiratory failure, unspecified with hypoxia; C79.9 Secondary malignant neoplasm of unspecified site; J90 Pleural effusion, not elsewhere classified; I31.4 Cardiac tamponade; I10 Essential (primary) hypertension; Z87.891 Personal history of nicotine dependence; E03.9 Hypothyroidism, unspecified; D64.9 Anemia, unspecified; J44.9 Chronic obstructive pulmonary disease, unspecified
CPT/HCPCS: 32555; 33010; 33017; 36415; 71045; 71250; 80048; 80053; 83735; 85025; 88112; 88305; 93308; 94640; 99152; C1725; J1644

== ENCOUNTER 2023-04-21 15:11 | Outpatient (CLI) | payer MEDICARE, SELFPAY ==
[2023-04-21 15:48] LABS: Basophils % 0.3 % (0.1-2.0); Eosinophils # 0.2 K/mm3 (0.0-0.4); Eosinophils % 3.3 % (0.1-12.0); Hematocrit 30.2 % (37.0-47.0); Hemoglobin 9.7 g/dL (12.2-16.2); Lymphocytes # 0.7 K/mm3 (0.7-4.5); Lymphocytes % 11.8 % (10-50); Mean Corpuscular Hemoglobin 37.3 pg (27.0-31.2); Mean Corpuscular Volume 116.6 fl (81-99); Mean Platelet Volume 9.2 fl (7.4-10.4); Monocytes # 0.3 K/mm3 (0.1-1.0); Monocytes % 5.2 % (1.7-9.3); Neutrophils # 4.4 K/mm3 (1.8-7.8); Neutrophils % 79.4 % (37.0-80.0); Platelet Count 507 K/mm3 (142-424); Red Blood Count 2.59 M/mm3 (4.20-5.40); Red Cell Distribution Width 17.1 % (11.5-17.5); White Blood Count 5.6 K/mm3 (4.8-10.8)
[2023-04-21 16:04] LABS: Alanine Aminotransferase 14 U/L (12-78); Albumin Level 2.5 g/dl (3.5-5.0); Alkaline Phosphatase 78 U/L (38-126); Anion Gap 8.1 mEq/L (5-15); Aspartate Amino Transferase 23 U/L (14-36); Bilirubin,Total 0.3 mg/dl (0.2-1.3); Blood Urea Nitrogen 35 mg/dl (7-17); Carbon Dioxide 23 mmol/L (22.0-30.0); Chloride 102 mmol/L (98-107); Estimated Glomerular Filt Rate 36 ml/min (>60); GFR (African American) 44 ML/MIN (>60); Globulin 2.6 g/dL (1.3-3.2); Glucose 105 mg/dl (74-100); Potassium 4.1 mmoL/L (3.5-5.1); Sodium 129 mmol/L (136-145); Total Protein,Serum 5.1 g/dl (6.3-8.2)
== END 2023-04-21 23:59 ==
LOC: LAB 15:12
PROVIDERS: PCP Nurse Practitioner Family; Visit Provider Internal Medicine Medical Oncology
DX: C34.10 Malignant neoplasm of upper lobe, unspecified bronchus or lung (principal); R53.83 Other fatigue; R79.89 Other specified abnormal findings of blood chemistry
CPT/HCPCS: 36415; 80053; 84443; 85025

== ENCOUNTER 2023-05-05 08:58 | Outpatient (CLI) | payer MEDICARE, SELFPAY ==
[2023-05-05 09:03] VITALS: BMI 19.3
[2023-05-05 09:32] LABS: Chloride 99 mmol/L (98-107)
[2023-05-05 09:33] LABS: Potassium 3.5 mmoL/L (3.5-5.1); Sodium 127 mmol/L (136-145)
[2023-05-05 09:35] LABS: Alanine Aminotransferase 56 U/L (12-78); Alkaline Phosphatase 135 U/L (38-126); Aspartate Amino Transferase 42 U/L (14-36); Bilirubin,Total 0.4 mg/dl (0.2-1.3); Blood Urea Nitrogen 30 mg/dl (7-17); Creatinine Clearance Estimated 21 mL/min (50-200); Estimated Glomerular Filt Rate 33 ml/min (>60); GFR (African American) 40 ML/MIN (>60)
[2023-05-05 09:36] LABS: Albumin Level 3.1 g/dl (3.5-5.0); Albumin/Globulin Ratio 1.1 (1.1-1.8); Anion Gap 7.5 mEq/L (5-15); Calcium 8.2 mg/dl (8.4-10.2); Carbon Dioxide 24 mmol/L (22.0-30.0); Globulin 2.7 g/dL (1.3-3.2); Glucose 124 mg/dl (74-100); Total Protein,Serum 5.8 g/dl (6.3-8.2)
[2023-05-05 09:37] LABS: Eosinophils % 0.5 % (0.1-12.0); Hematocrit 30.4 % (37.0-47.0); Hemoglobin 9.4 g/dL (12.2-16.2); Lymphocytes # 0.7 K/mm3 (0.7-4.5); Lymphocytes % 8.2 % (10-50); Mean Corpuscular Hemoglobin 37.9 pg (27.0-31.2); Mean Corpuscular Volume 122.3 fl (81-99); Mean Platelet Volume 8.6 fl (7.4-10.4); Monocytes # 0.2 K/mm3 (0.1-1.0); Monocytes % 2.9 % (1.7-9.3); Neutrophils # 6.9 K/mm3 (1.8-7.8); Neutrophils % 88.3 % (37.0-80.0); Platelet Count 392 K/mm3 (142-424); Red Blood Count 2.48 M/mm3 (4.20-5.40); Red Cell Distribution Width 18.4 % (11.5-17.5); White Blood Count 7.9 K/mm3 (4.8-10.8)
[2023-05-05 09:48] LABS: MANUAL DIFFERENTIAL MANUAL DIFFERENTIAL (MANUAL DIFF)
[2023-05-05 10:06] LABS: Thyroid Stimulating Hormone 3.79 uIU/mL (0.465-4.68)
[2023-05-05] MEDS: PEMBROLIZUMAB 200 MG in 0.9 % SODIUM CHLORIDE 50 ML 100 MG IV (10:28)
[2023-05-05] MEDS: SODIUM CHLORIDE 0.9% 50ML BAG 50 ML IV (10:29)
[2023-05-05 10:30] VITALS: BP 116/59; PULSE 94; RESP 19; TEMP 36.6; O2SAT 99
[2023-05-05 10:45] VITALS: BP 137/61; PULSE 87; RESP 19
[2023-05-05] MEDS: FAMOTIDINE 20MG TABLET 20 MG (10:55)
[2023-05-05 11:20] VITALS: BP 132/67; PULSE 91; RESP 18; O2SAT 99
[2023-05-05 12:06] LABS: Lymphocytes % 10 % (10-50); Monocytes % 1 % (2-9); Neutrophils % 89 % (42-76); Platelet Estimate Normal; Total Cells Counted 100
[2023-05-05 12:07] LABS: Anisocytosis 2+; Hypochromasia 1+; Macrocytosis 2+; Ovalocytes 1+
[2023-05-06 13:42] LABS: Adrenocorticotropic Hormone 57.8 pg/mL (7.2-63.3)
== END 2023-05-05 11:20 | disposition home or self-care (01) ==
LOC: INF 08:58
PROVIDERS: PCP Nurse Practitioner Family; Visit Provider Internal Medicine Medical Oncology
DX: C34.10 Malignant neoplasm of upper lobe, unspecified bronchus or lung (principal); Z79.899 Other long term (current) drug therapy
CPT/HCPCS: 80053; 82024; 82533; 84443; 85007; 85025; 96413; J9271